=== PATIENT | female | born 1940 | race Caucasian/White ===

== ENCOUNTER 2021-07-26 10:10 | Inpatient (IN) | payer MEDICARE, OTHER, SELFPAY ==
[2021-07-26] VITALS (9 sets, daily range): BP systolic 128–149; BP diastolic 83–105; PULSE 92–115; RESP 18–25; TEMP 36.6–36.9; O2SAT 92–98; BMI 36.9; BMI 35.9
--- NOTE | 2021-07-26 10:38 | ECG_ITS ---
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 Measurements Intervals [place] Rate: 106 P: [place]: QRS: 163 QRSD: 136 T: 58 QT: 373 QTc: 496 Interpretive Statements ATRIAL FIBRILLATION WITH RAPID VENTRICULAR RESPONSE INTRAVENTRICULAR CONDUCTION DELAY [130+ ms QRS DURATION] ANTEROLATERAL MYOCARDIAL INFARCTION , OF INDETERMINATE AGE [40+ ms Q WAVE IN I/aVL/V3-V6] No previous ECG available for comparison Electronically Signed On 07-26-2021 21:03:26 CDT by Manda Harrington M.D. [id number]
--- NOTE | 2021-07-26 11:16 | ECG_ITS ---
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 Measurements Intervals [place] Rate: 88 P: [place]: QRS: 168 QRSD: 131 T: 55 QT: 397 QTc: 481 Interpretive Statements ATRIAL FIBRILLATION RIGHT AXIS DEVIATION [QRS AXIS > 100] INTRAVENTRICULAR CONDUCTION DELAY [130+ ms QRS DURATION] POSSIBLE ANTERIOR MYOCARDIAL INFARCTION , OF INDETERMINATE AGE [30 ms Q WAVE IN V3/V4, OR R < 0.2 mV IN V4] Compared to ECG 07/26/2021 10:48:27 Right-axis deviation now present Myocardial infarct finding still present Electronically Signed On 07-26-2021 21:03:12 CDT by Manda Harrington M.D. [id number]
--- NOTE | 2021-07-26 11:16 | W.ED.CHESTPA ---
HPI - Chest Pain General: Chief Complaint: Chest Pain Stated Complaint: CHEST PAIN (TOOK 3 NITRO THIS AM) Time Seen by Provider: 07/26/21 10:41 History of Present Illness: HPI narrative: 81-year-old female with history of CAD hypertension hyperlipidemia presents with chest pain. States this started last night. States it is achy. States it is exertional and nonpleuritic. Denies lower extremity pain or swelling. Denies nausea vomiting or cough. Denies fevers or chills. States does not radiate into the back. Did not improve with nitroglycerin at home. Still has mild active pain. Review of Systems Narrative: - CONSTITUTIONAL: Denies weight loss, fever and chills. - HEENT: Denies changes in vision and hearing. - RESPIRATORY: As above - CV: As above - GI: Denies abdominal pain, nausea, vomiting and diarrhea. - : Denies dysuria and urinary frequency. - MSK: Denies myalgia and joint pain. - SKIN: Denies rash and pruritus. - NEUROLOGICAL: Denies headache, weakness, numbness and syncope. - PSYCHIATRIC: Denies suicidal ideation PFSH ED PFSH: Medical History (Updated 07/19/21 @ 21:21 by Charan Montalvo MD) Abnormal stress test Anxiety Chest pressure Essential hypertension Hyperlipidemia Obesity Family History Mother Cancer Father Cancer Brother Cancer Social History Smoking and tobacco status: never smoked Alcohol intake: current Alcohol intake frequency: holidays/special occasions only Household members: spouse Marital status: service: No Current occupational status: retired Physical Exam Narrative: EXAM NARRATIVE: - GENERAL: Alert and oriented x 3. No acute distress. Well-nourished. - EYES: EOMI. Anicteric. - HENT: Atraumatic, no C-spine tenderness. Moist mucous membranes. No scleral icterus. No cervical lymphadenopathy. - LUNGS: Clear to auscultation bilaterally. No accessory muscle use. Equal lung sounds bilaterally. No respiratory distress. - CARDIOVASCULAR: Regular rate and rhythm. No murmur. No JVD. - ABDOMEN: Soft, non-tender and non-distended. Negative CVA tenderness bilaterally, no rebound or guarding, negative Ya sign. No palpable masses. - EXTREMITIES: No edema. Non-tender. - SKIN: No rashes or lesions. Warm. - NEUROLOGIC: No meningismus or focal neurological deficits. CN II-XII grossly intact. - PSYCHIATRIC: Cooperative. Appropriate mood and affect. Course Vital Signs: Vital signs: Vital Signs Temperature 98.4 F 07/26/21 10:34 Pulse Rate 96 07/26/21 11:01 Respiratory Rate 18 07/26/21 11:01 Blood Pressure 149/105 07/26/21 11:01 Pulse Oximetry 94 07/26/21 11:01 MDM - Chest Pain MDM Narrative: Medical decision making narrative: 81-year-old with history of CAD presents due to chest pain. It is exertional. It was not relieved by sublingual nitro at home. Aspirin provided. EKG reveals partial left bundle branch block and repeat EKG does not reveal any acute ischemia. She does have A. fib at a controlled rate. Otherwise she is chemically stable afebrile and nontoxic-appearing. D-dimer is elevated but CT scan does not reveal signs of PE. Does have groundglass appearance opacities and Covid swab is pending. BNP is also elevated so Lasix was provided. High-sensitivity troponin is 16. Repeat is pending. Otherwise EKG does not reveal any sign of acute ischemia. Discussed with cardiology and due to concern for exertional pain in the setting of CAD will start nitro and heparin drip. Remainder of lab work and imaging reviewed. Discussed with hospitalist and they agreed patient would benefit from admission. Patient admitted in stable condition. Further evaluation management per hospitalist team. Lab Data: Labs: Lab Results 07/26/21 07/26/21 07/26/21 10:57 10:57 10:57 WBC 8.1 10^3/uL 10^3/ uL (4.0-10.0) RBC 4.36 10^6/uL 10^6 /uL (4.1-5.3) Hgb 12.2 g/dL g/dL (11.5-15.3) Hct 38.5 % % (37.0-47.0) MCV 88.3 fl fl (81-99) MCH 28.0 pg pg (28.0-34.0) MCHC 31.7 g/dL g/dL (30.0-36.0) RDW 14.9 % % (12.1-15.1) Plt Count 211 10^3/cmm 10^3 /cmm (130-400) MPV 11.1 fL H fL (7.4-10.4) Neut % (Auto) 64.7 % % Lymph % (Auto) 25.2 % % [place] % (Auto) 8.0 % % Eos % (Auto) 0.9 % % Baso % (Auto) 0.7 % % Neut # (Auto) 5.22 10^3/uL 10^3 /uL (1.8-7.7) Lymph # (Auto) 2.0 10^3/uL 10^3/ uL (0.8-4.8) [place] # (Auto) 0.7 10^3/uL 10^3/ uL (0.2-0.9) Eos # (Auto) 0.1 10^3/uL 10^3/ uL (0.0-0.8) Baso # (Auto) 0.1 10^3/uL 10^3/ uL (0.0-0.1) Nucleated RBC % (a uto) 0 % % Nucleated RBCs # 0.0 /100WBC /100W BC PT 12.90 SECONDS SEC ONDS (12.1-14.9) INR 0.95 (0.8-1.2) APTT 29.6 SECONDS SECO NDS (23.9-36.7) D-Dimer 1.35 ug/mIFEU H u g/mIFEU (0-0.59) Sodium Potassium Chloride Carbon Dioxide Anion Gap BUN Creatinine GFR Calculation Glucose Calculated Osmolal ity Calcium Total Bilirubin AST ALT Alkaline Phosphata se Troponin T Baselin e 16 ng/L H ng/L (0-10) NT-Pro-B Natriuret Pep Total Protein Albumin Globulin Lipase 07/26/21 10:57 WBC RBC Hgb Hct MCV MCH MCHC RDW Plt Count MPV Neut % (Auto) Lymph % (Auto) [place] % (Auto) Eos % (Auto) Baso % (Auto) Neut # (Auto) Lymph # (Auto) [place] # (Auto) Eos # (Auto) Baso # (Auto) Nucleated RBC % (a uto) Nucleated RBCs # PT INR APTT D-Dimer Sodium 142 mmol/L mmol/L (136-145) Potassium 5.1 mmol/L mmol/L (3.5-5.1) Chloride 107 mmol/L mmol/L (98-107) Carbon Dioxide 26 mmol/L mmol/L (22-29) Anion Gap 14.1 (5-19) BUN 13 mg/dL mg/dL (8-23) Creatinine 0.5 mg/dL mg/dL (0.5-0.9) GFR Calculation Not Reportable Glucose 101 mg/dL mg/dL (65-115) Calculated Osmolal ity 294 mOsm/kg mOsm/ kg (285-295) Calcium 8.8 mg/dL mg/dL (8.5-10.5) Total Bilirubin 0.6 mg/dL mg/dL (0.15-1.2) AST 53 U/L H U/L (0-32) ALT 66 U/L H U/L (0-33) Alkaline Phosphata se 115 IU/L H IU/L (35-105) Troponin T Baselin e NT-Pro-B Natriuret Pep 2127 pg/mL H pg/m L (0-450) Total Protein 6.5 g/dL L g/dL (6.6-8.7) Albumin 4.2 g/dL g/dL (3.5-5.2) Globulin 2.3 g/dL g/dL (1.3-4.6) Lipase 16 U/L U/L (13-60) EKG Data^: EKG 1: Other EKG comments: A. fib with a rate of 106, there is a left bundle branch block. No signs of acute ischemia or other acute abnormality. Second EKG: A. fib at a rate of 88, incomplete left bundle branch block, no sign of acute ischemia or other acute abnormality, no significant change from previous EKG. Discharge Plan Discharge Prescriptions: No Action fluticasone propionate [Flonase Allergy Relief] 50 mcg/actuation spray,suspension 1 spray INTRANASAL DAILY PRN (Reason: Nasal Congestion) RF: 0 atorvastatin 40 mg tablet 80 mg PO DAILY RF: 0 nitroglycerin 0.4 mg tablet, sublingual 0.4 mg SUBLINGUAL Q5M PRN (Reason: chest pain) Qty: 30 RF: 3 Vitamin D3 25 mcg (1,000 unit) Capsule 25 mcg PO DAILY RF: 0 Coding Level of Care Code ED Track Hoe Operator for Chg Fwd
--- NOTE | 2021-07-26 11:17 | XRR_ITS ---
PROCEDURE INFORMATION: Exam: XR Chest Exam date and time: 07/26/2021 11:17 AM Age: 81 years old Clinical indication: Pain; Chest pressure; Additional info: Chest pain TECHNIQUE: Imaging protocol: XR of the chest. Views: 1 view. COMPARISON: No relevant prior studies available. FINDINGS: Lungs: Nonspecific bibasilar consolidation is present, consistent with atelectasis, edema, or pneumonia. Central vessels are origin and there is interstitial prominence and Benjie B lines compatible with mild CHF. Pleural spaces: Trace pleural effusions versus pleural thickening is noted.There is no evidence of pneumothorax. Heart/Mediastinum: The heart is enlarged. Bones/joints: Osteopenia and moderate degenerative changes in the spine and shoulders are noted. XR/XR chest 1V portable [id number] IMPRESSION: 1. Nonspecific bibasilar consolidation is present, consistent with atelectasis, edema, or pneumonia. 2. Central vessels are origin and there is interstitial prominence and Benjie B lines compatible with mild CHF. Radiation Dose CTDIVOL = (mGy): DLP = (mGy-cm)
[2021-07-26] MEDS: aspirin 81 mg Chew Tablet 324 MG PO (11:23)
[2021-07-26 11:28] LABS: Basophils # 0.1 10^3/uL (0.0-0.1); Basophils % 0.7 %; Eosinophils # 0.1 10^3/uL (0.0-0.8); Eosinophils % 0.9 %; Hematocrit 38.5 % (37.0-47.0); Hemoglobin 12.2 g/dL (11.5-15.3); Lymphocytes % 25.2 %; Mean Corpuscular HGB Conc 31.7 g/dL (30.0-36.0); Mean Corpuscular Volume 88.3 fl (81-99); Mean Platelet Volume 11.1 fL (7.4-10.4); Monocytes # 0.7 10^3/uL (0.2-0.9); Neutrophils # 5.22 10^3/uL (1.8-7.7); Neutrophils % 64.7 %; Nucleated Red Blood Cells % 0 %; Platelet Count 211 10^3/cmm (130-400); Red Blood Count 4.36 10^6/uL (4.1-5.3); Red Cell Distribution Width 14.9 % (12.1-15.1); White Blood Count 8.1 10^3/uL (4.0-10.0)
[2021-07-26 11:35] LABS: INR 0.95 (0.8-1.2)
[2021-07-26 11:36] LABS: Partial Thromboplastin Time 29.6 SECONDS (23.9-36.7)
[2021-07-26 11:38] LABS: D Dimer 1.35 ug/mIFEU (0-0.59)
[2021-07-26 11:42] LABS: Troponin(5th) Baseline 16 ng/L (0-10)
--- NOTE | 2021-07-26 11:48 | CTR_ITS ---
PROCEDURE INFORMATION: Exam: CTA Chest With Contrast Exam date and time: 07/26/2021 11:48 AM Age: 81 years old Clinical indication: Shortness of breath; Additional info: Pe TECHNIQUE: Imaging protocol: Computed tomographic angiography of the chest with contrast. 3D rendering (Not supervised by radiologist): MIP and/or 3D reconstructed images were created by the technologist. Radiation optimization: All CT scans at this facility use at least one of these dose optimization techniques: automated exposure control; mA and/or kV adjustment per patient size (includes targeted exams where dose is matched to clinical indication); or iterative reconstruction. Contrast material: OMNI 350; Contrast volume: 70 ml; Contrast route: INTRAVENOUS (IV); COMPARISON: CR (CHEST, ) 07/26/2021 11:23 AM RADIATION DOSE METRICS: Total DLP (mGy-cm): 560.21 FINDINGS: Pulmonary arteries: There is no pulmonary embolus. Aorta: The ascending thoracic aorta measures 4 cm in size. No evidence of mural hematoma or dissection. Lungs: There is diffuse interstitial and ground-glass opacity in the lungs especially both lower lobes compatible with pneumonitis or edema. There is subpleural atelectasis of the dependent portions of the lungs. Linear atelectasis versus scarring is also noted in the left lung. Pleural spaces: There are small bilateral pleural effusions right greater than left. Heart: The heart is enlarged. Lymph nodes: There is mediastinal adenopathy with 1 the largest lymph nodes being the 1.7 cm short axis subcarinal lymph node. There is a 1.4 cm short axis right hilar lymph node. There is a 1.2 cm short axis left hilar lymph node. There is no axillary adenopathy. There is right retrocrural adenopathy with a lymph node measuring 1.2 cm in short axis. Diaphragm: A small hiatal hernia is present. Gallbladder and bile ducts: There has been a cholecystectomy. Adrenal glands: There is multilobulated benign adenomatous enlargement of the adrenal glands. Bones/joints: There is osteopenia with moderate degenerative changes in the spine. Chronic appearing anterior wedging fracture deformities of T12 and L1 are noted. No acute bony abnormality. Soft tissues: Unremarkable. CT/CT angio chest PE protcl [id number] IMPRESSION: 1. There is no pulmonary embolus. 2. The ascending thoracic aorta measures 4 cm in size. No evidence of mural hematoma or dissection. 3. There is diffuse interstitial and ground-glass opacity in the lungs especially both lower lobes compatible with pneumonitis or edema. There is also dependent atelectasis. Radiation Dose CTDIVOL = (mGy): DLP = 560.21 (mGy-cm)
[2021-07-26 11:49] LABS: Alanine Aminotransferase 66 U/L (0-33); Albumin Level 4.2 g/dL (3.5-5.2); Alkaline Phosphatase 115 IU/L (35-105); Anion Gap 14.1 (5-19); Aspartate Amino Transferase 53 U/L (0-32); Blood Urea Nitrogen 13 mg/dL (8-23); Calcium 8.8 mg/dL (8.5-10.5); Carbon Dioxide 26 mmol/L (22-29); Chloride 107 mmol/L (98-107); Globulin 2.3 g/dL (1.3-4.6); Glucose 101 mg/dL (65-115); Lipase 16 U/L (13-60); NT Pro B Type Natriuretic Pept 2127 pg/mL (0-450); Osmolality Calculated 294 mOsm/kg (285-295); Potassium 5.1 mmol/L (3.5-5.1); Sodium 142 mmol/L (136-145); Total Bilirubin 0.6 mg/dL (0.15-1.2); Total Protein 6.5 g/dL (6.6-8.7)
[2021-07-26] MEDS: nitroglycerin drip 50 MG/250 ML PREMIX IV (11:58)
[2021-07-26] MEDS: iohexol 350 mg/mL 100 mL Btl IV (12:45)
--- NOTE | 2021-07-26 13:16 | ECG_ITS ---
[facility] Test Date: 2021-07-26 Pat Name: Radha Samuel Department: Room: 107 Gender: Female Web Pressman: : 1940 Requested By: Jay Grace Order Number: [id number] Vidya MD: Manda Harrington M.D. Measurements Intervals [place] Rate: 106 P: [place]: QRS: 63 QRSD: 134 T: -64 QT: 409 QTc: 544 Interpretive Statements ATRIAL FIBRILLATION WITH RAPID VENTRICULAR RESPONSE INTRAVENTRICULAR CONDUCTION DELAY [130+ ms QRS DURATION] POSSIBLE RIGHT VENTRICULAR HYPERTROPHY [SOME/ALL OF: PROMINENT R IN V1, LATE TRANSITION, RAD, ULISES, SSS] Compared to ECG 07/26/2021 13:49:19 Right-axis deviation no longer present Myocardial infarct finding no longer present Electronically Signed On 07-26-2021 21:15:24 CDT by Manda Harrington M.D. [id number]
[2021-07-26] MEDS: heparin drip 25,000 UNIT/500 ML PREMIX 26 UNIT IV (13:21)
[2021-07-26] MEDS: heparin 5,000 unit/mL INJ 1 mL IV (13:21)
[2021-07-26] MEDS: FUROsemide 10 mg/mL SDV 4mL 40 MG IVP ×2 (13:57→20:36)
[2021-07-26 14:19] LABS: SARS Covid-2 Antigen Negative (Negative)
--- NOTE | 2021-07-26 14:30 | PC.NURSE ---
Admit Note Patient admitted to [facility] from ER via [facility]. Covering service notified. Patient presents with sob on GTTS. Orders reviewed & will continue to monitor. Patient and/or internet sales representative oriented to environment, equipment, and informed of the following as found in the admission booklet: patient rights & responsibilities, visitor policy, hand and respiratory hygiene practice. Other education includes:medications and response. Patient and/or internet sales representative verbalized understanding.
[2021-07-26 14:35] LABS: Troponin 5 2HR 14.61 ng/L (0-10)
[2021-07-26 14:39] LABS: Troponin 5 2HR Delta -1.39 ABS# (0-10)
--- NOTE | 2021-07-26 15:55 | P.CONIM_ITS ---
Providers/Reason For Consult Consulting Physician/Specialty*: Dr. Harrington, cardiology Reason for Consult*: Chest pain concern for unstable angina Attending Physician: Jamie Lopez MD Primary Care Provider: Estee Novak MD History of Present Illness History of Present Illness Radha Samuel is a 81 year old female with past medical history of hypertension, hyperlipidemia, obesity BMI ~ 37, systolic murmur, mild aortic stenosis and anxiety presented to the ER with complaints of chest discomfort and worsening shortness of breath. She complains of progessively worsening MCGHEE for last several months. She was able to walk 1/4th of a mile before and now walking across the house makes her SOB. She had chest pain (8/10) around 2 am and needed to use NTG. Chest pain described as heaviness and associated with palpitation and heart racing. No known h/o CAD or stent. Abnormal stress test at [facility] a year or two ago and [facility] was planned in 01/[address] Garzon. She is currently being followed by Dr. Montalvo and saw him about 10 days ago. Echocardiogram was ordered but patient continues to have worsening of her shortness of breath and given chest discomfort earlier this morning decided to come to the ER. On waking up around 2 in the morning she also felt her heart racing with a maximum heart rate being 110. Patient states that she has been having these episodes for the past year on and off. She has never been diagnosed with atrial fibrillation. No URI or UTI-like symptoms. No sick contacts. Rapid Covid antigen testing was negative in ER. EKG today showed atrial fibrillation with right axis deviation with heart rate at 106 bpm. Intraventricular conduction delay. Possible anterior MT of indeterminate age. A. fib and IVCD (LBBB like morphology) new when compared to old EKG earlier this year. Anterolateral MT of indeterminate age. Subsequent EKG showed atrial fibrillation with normal axis and right mruonl-aflrwg-ihyk morphology with deep T wave inversion noted in anterolateral leads. She is currently on NTG drip. She complains of heaviness in her chest as well as upper abdominal fullness. She was started on IV Lasix as well as on heparin drip. At the time of evaluation patient complains of some heaviness in her chest rated around 3/10 in intensity. Review of Systems Const: Denies: fever(s), chills, body aches or fatigue Eyes: Denies: change in vision ENMT: Denies: throat pain, odynophagia or nasal congestion Card: Reports: swelling of feet/ankles and dyspnea on exertion; Denies: chest pain, palpitations, irregular heart rhythm, syncope, pre-syncope or orthopnea Resp: Reports: dyspnea; Denies: productive cough or non-productive cough GI: Denies: abdominal pain, nausea, vomiting, diarrhea, hematochezia or melena : Denies: difficulty voiding or dysuria Musc: Reports: extremity swelling; Denies: neck pain, back pain, joint pain or muscle cramps Skin/Breast: Denies: rash Neuro: Denies: headache(s), numbness in extremities, weakness in extremities, frequent falls or dizziness Psych: Denies: anxiety or depression Endo: Denies: polydipsia, cold intolerance or heat intolerance Deniz/Lymph: Denies: easy bruising or easy bleeding All/Imm: Reports: seasonal rhinorrhea; Denies: urticaria or throat swelling Meds/Allergies Home Medications and Allergies Home Medications Medication Instructions Recorded Confirmed Last Taken Type nitroglycerin 0.4 mg sublingual 0.4 mg SUBLINGUAL Q5M PRN #30 tab 05/28/20 07/26/21 07/26/21 02:00 Rx tablet fluticasone propionate 50 1 spray INTRANASAL DAILY PRN 01/14/21 07/26/21 Unknown History mcg/actuation nasal spray,suspension atorvastatin 40 mg tablet 80 mg PO DAILY tab 07/15/21 07/26/21 07/24/21 History cholecalciferol (vitamin D3) 25 mcg PO DAILY 07/26/21 07/26/21 07/26/21 History [Vitamin D3] Allergies Allergy/AdvReac Type Severity Reaction Status Date / Time morphine Allergy Severe hallucinati Verified 07/15/21 10:52 ons Current Medications Current Medications Generic Name Dose Route Start Last Admin Trade Name Freq PRN Reason Stop Dose Admin Heparin Sodium (Porcine) 0 unit 07/26/21 12:11 07/26/21 13:21 Heparin 5,000 Unit/Ml Inj 1 Ml IV 4,600 unit PRN PRN Administration Heparin weight-base protocol Protocol Nitroglycerin/Dextrose 50 mg in 250 mls @ 0 mls/hr 07/26/21 11:30 07/26/21 11:58 Nitroglycerin Drip IV 10 mcg/min .Q0M EVELYNE 3 mls/hr Administration Protocol Per Protocol Heparin Sodium/Sodium Chloride 25,000 unit in 500 mls @ 0 mls/hr 07/26/21 12:15 07/26/21 13:21 Heparin Drip IV 14.19 unit/kg/hr .Q0M EVELYNE 26 mls/hr Administration Protocol Per Protocol PFSH Acute PFSH: Medical History Abnormal stress test Anxiety Chest pressure Essential hypertension Hyperlipidemia Obesity Osteopenia Surgical History H/O right wrist surgery S/P hysterectomy Family History Mother Cancer Father Cancer Brother Cancer Social History Smoking and tobacco status: never smoked Alcohol intake: current Alcohol intake frequency: holidays/special occasions only Household members: spouse Marital status: service: No Current occupational status: retired Vitals/I&O/Wt Last Vital Signs Temp 98.4 F 07/26/21 10:34 Pulse 105 H 07/26/21 15:02 Resp 20 H 07/26/21 15:02 BP 146/101 07/26/21 15:02 Pulse Ox 94 07/26/21 15:02 Weight last 48 hrs Weight 202 lb Physical Exam Narrative: EXAM NARRATIVE: GENERAL: obese woman in no acute distress HEENT: Pupils equal round reactive to light. No pallor or icterus. NECK: Elevated JVD. No carotid bruit. CARDIOVASCULAR SYSTEM: S1-S2 irregular. Grade 3/6 systolic murmur with radiation to carotids RESPIRATORY SYSTEM: Chest clear to auscultation. No wheezes rhonchi or rubs heard. No use of accessory muscles. ABDOMEN: Soft, nontender and nondistended. Normal bowel sounds present. EXTREMITIES: No cyanosis or clubbing. 1+ bilateral edema. No signs of chronic venous insufficiency. DIRECTOR OF COUNTERINTELLIGENCE: Patient is alert oriented ?3. No focal neurological deficits. SKIN: Normal turgor and temperature. Data Other Data: Other data: Chest CTA 26 July 2021 IMPRESSION: 1. There is no pulmonary embolus. 2. The ascending thoracic aorta measures 4 cm in size. No evidence of mural hematoma or dissection. 3. There is diffuse interstitial and ground-glass opacity in the lungs especially both lower lobes compatible with pneumonitis or edema. There is also dependent atelectasis. Chest x-ray 26 July 2021 IMPRESSION: 1. Nonspecific bibasilar consolidation is present, consistent with atelectasis, edema, or pneumonia. 2. Central vessels are origin and there is interstitial prominence and Benjie B lines compatible with mild CHF. A&P Assessment and plan (1) Chest pressure: Baseline troponin of 16 that decreased to 15 and 6-hour troponin T of 15.7. -Previous stress test with some reversible ischemia in circumflex artery territory. (As documented in one of the notes I do not have actual report or images available for review.) -EKG with atrial fibrillation with alternating bundle branch block T wave inversion in anterolateral leads. Patient's prior EKG from January 2020 with normal sinus rhythm normal axis poor anterior R wave progression with T wave inversion V2 to V6. Patient was not on any AV tito blockers at home. -Plan for echocardiogram and decision for stress test/coronary angiogram based on echocardiogram and patient's clinical progression. Status: Acute (2) Heart failure: Heart failure with preserved ejection fraction -Decompensated likely in setting of newly diagnosed atrial fibrillation and alternating bundle branch block. -Agree with IV diuretics at present dose. -Intake/output charting, daily weight. Status: Acute Qualifiers: Heart failure chronicity: acute Heart failure type: diastolic Qualified Code(s): I50.31 - Acute diastolic (congestive) heart failure (3) A-fib: Rate fairly controlled. -Started on low-dose beta-amy. -Transition from heparin to Lovenox. Status: Acute Qualifiers: Atrial fibrillation type: persistent (not longstanding) Qualified Code(s): I48.19 - Other persistent atrial fibrillation (4) Aortic stenosis: Plan to repeat echocardiogram. Status: Acute Qualifiers: Cardiac valve disease etiology: nonrheumatic Qualified Code(s): I35.0 - Nonrheumatic aortic (valve) stenosis (5) Transaminitis: Status: Acute (6) Essential hypertension: Status: Acute (7) Hyperlipidemia: Status: Acute Qualifiers: Hyperlipidemia type: other hyperlipidemia Qualified Code(s): E78.49 - Other hyperlipidemia Additional A&P Information Alternating bundle branch block Obesity History of abnormal stress test Thank you for allowing me to participate in patient's care. Please feel free to call with questions or concerns. Consult Attestations Time Spent in Patient Care: Greater than 35 minutes (>than 50% of time spent in counselling and/or direct pt care on unit) . Coding Level of Care Code Acute Utility Repairer for Luisa Giffordd Diagnoses Chest pressure R07.89 Heart failure I50.31 Heart failure chronicity: acute Heart failure type: diastolic A-fib I48.19 Atrial fibrillation type: persistent (not longstanding) Aortic stenosis I35.0 Cardiac valve disease etiology: nonrheumatic Transaminitis R74.01 Essential hypertension I10 Hyperlipidemia E78.49 Hyperlipidemia type: other hyperlipidemia
--- NOTE | 2021-07-26 16:05 | PM.HP ---
Providers/Chief Complaint Admitting Physician: Jamie Lopez MD Primary Care Provider: Estee Novak MD Chief Complaint: CHEST PAIN (TOOK 3 NITRO THIS AM) History of Present Illness Radha Samuel is a 81 year old female with past medical history of aortic stenosis, dyslipidemia, abnormal stress test, came in with chief complaint of worsening shortness of breath going on for the last 1 week, as well as worsening substernal pressure-like chest pain. With regards to shortness of breath, it has drastically worsened in the last 1 week, up to a point where she gets short of breath even with minimal exertion, denies any PND, orthopnea. According to the patient she does have baseline shortness of breath Which has been there for about a year, and has been slowly progressively worsening. But over the last 1 week it has worsened significantly. Chest pain is mostly substernal pressure-like, with no radiation, today the chest pain was very severe and did not responded to sublingual nitro x3 doses. She is also complaining of episodic palpitation.She denies any cough, fever, runny nose, headache, nausea, diaphoresis. Upon arrival in the ER she was worked up for above-mentioned complaint: Pertinent imaging studies: CT angio chest PE protcl : No PE: ascending thoracic aorta measures 4 cm in size.diffuse interstitial and ground-glass opacity in the lungs especially both lower lobes compatible with pneumonitis or edema. EKG: A. fib,RAD, IVCD. Pertinent labs: WBC 8.1, H&H: 12.2/ 38.5 , PLT: 211, serum sodium:142, serum potassium:5.1, BUN and serum creatinine: 13/0.5, AST:53, ALT:66, ALP:115 , troponin trend without significant delta: proBNP:2127 Rapid Covid : Antigen negative She was started on heparin drip as well as nitro drip, for possible unstable angina in ER Review of Systems Const: Denies: fever(s), chills, body aches, change in appetite or diaphoresis Card: Denies: orthopnea or leg pain with exertion Resp: Denies: wheezing or pain on inspiration GI: Denies: abdominal pain, nausea, vomiting, diarrhea or constipation : Denies: flank pain Musc: Denies: back pain or extremity pain Neuro: Denies: headache(s), difficulty walking or confusion Medications/Allergies Home Medications Medication Instructions Recorded Confirmed Last Taken Type nitroglycerin 0.4 mg sublingual 0.4 mg SUBLINGUAL Q5M PRN #30 tab 05/28/20 07/26/21 07/26/21 02:00 Rx tablet fluticasone propionate 50 1 spray INTRANASAL DAILY PRN 01/14/21 07/26/21 Unknown History mcg/actuation nasal spray,suspension atorvastatin 40 mg tablet 80 mg PO DAILY tab 07/15/21 07/26/21 07/24/21 History cholecalciferol (vitamin D3) 25 mcg PO DAILY 07/26/21 07/26/21 07/26/21 History [Vitamin D3] Allergies Allergy/AdvReac Type Severity Reaction Status Date / Time morphine Allergy Severe hallucinati Verified 07/15/21 10:52 ons PFSH Acute PFSH: Medical History (Updated 07/26/21 @ 17:31 by Jamie Lopez MD) Abnormal stress test Anxiety Chest pressure Essential hypertension Hyperlipidemia Obesity Osteopenia Surgical History (Updated 07/26/21 @ 15:59 by Manda Harrington MD) H/O right wrist surgery S/P hysterectomy Family History Mother Cancer Father Cancer Brother Cancer Social History Smoking and tobacco status: never smoked Alcohol intake: current Alcohol intake frequency: holidays/special occasions only Household members: spouse Marital status: service: No Current occupational status: retired Vitals/I&O/Wt Last Vital Signs Temp 98.4 F 07/26/21 10:34 Pulse 105 H 07/26/21 15:02 Resp 20 H 07/26/21 15:02 BP 146/101 07/26/21 15:02 Pulse Ox 94 07/26/21 15:02 Weight last 48 hrs Weight 91.626 kg Physical Exam Const: COMMON NORMALS: patient oriented x3 HENMT: COMMON NORMALS: normocephalic and atraumatic HEAD & SCALP: normocephalic and atraumatic Resp: EFFORT & INSPECTION: Yes symmetric chest movement OTHER: Minimal bilateral basal crackles Cardio: COMMON NORMALS: No rub (Cardio) OTHER: Irregularly irregular rhythm, S1-S2 are variable intensity, ESM in aortic area GI: COMMON NORMALS: Normal to inspection, nondistended, normoactive bowel sounds present, Soft to palpation, non-tender, No hepatosplenomegaly present and no masses AUSCULTATION: Yes normoactive bowel sounds PALPATION: Yes Soft to palpation and Yes No hepatosplenomegaly present RECTAL EXAM: deferred Extremity: COMMON NORMALS: no clubbing, cyanosis or edema and no pedal edema Neuro: COMMON NORMALS: patient oriented x3 Data : 07/26/21 10:57 07/26/21 10:57 A&P Assessment and plan (1) Chest pain: Typical cardiac chest pain: In absence of classical CAD risk factor. 2D echo: Initially on nitro drip has been stopped Continue aspirin, statin, beta-amy, nitropaste. Sublingual nitro as needed Possible cardiac cath, once more clinically stable Status: Acute (2) A-fib: New onset atrial fibrillation TSH Metoprolol tartrate 12.5 mg p.o. twice daily Lovenox 90 subcu twice daily Status: Acute (3) Heart failure: Decompensated heart failure: Lasix 40 mg IV twice daily Intake output chart Daily weight K>4, MG>2 Status: Acute (4) Aortic stenosis: Status: Acute (5) Hypertension: No known history of hypertension in the past not any antihypertensive medication at home. Amlodipine 5 mg p.o. Status: Acute (6) Transaminitis: Likely secondary to congestive hepatopathy: Monitor CMP Status: Acute Attestations Medical Necessity Statement*: Patient needs to be in hospital for management of chest pain.Anticipated length of stay greater than 2 midnights. Coding Level of Care Code Acute Extrusion Machine Operator for Luisa Medley Diagnoses Chest pain R07.9 A-fib I48.91 Heart failure I50.9 Aortic stenosis I35.0 Hypertension I10 Transaminitis R74.01
[2021-07-26] MEDS: metoprolol tartrate 25 mg Tablet 12.5 MG PO (17:15)
--- NOTE | 2021-07-26 17:16 | ECG_ITS ---
[facility] Test Date: 2021-07-26 Pat Name: Radha Samuel Department: Room: Gender: Female Audio Visual Production Specialist: : 1940 Requested By: Jay Grace Order Number: [id number] Vidya MD: Manda Harrington M.D. Measurements Intervals [place] Rate: 80 P: MI: QRS: 169 QRSD: 138 T: 61 QT: 433 QTc: 502 Interpretive Statements ATRIAL FIBRILLATION RIGHT AXIS DEVIATION [QRS AXIS > 100] INTRAVENTRICULAR CONDUCTION DELAY [130+ ms QRS DURATION] POSSIBLE ANTERIOR MYOCARDIAL INFARCTION , OF INDETERMINATE AGE [30 ms Q WAVE IN V3/V4, OR R < 0.2 mV IN V4] Compared to ECG 07/26/2021 11:30:32 No significant changes Electronically Signed On 07-26-2021 21:15:57 CDT by Manda Harrington M.D. [email or web address] [email or web address].[email or web address]/[id number]
--- NOTE | 2021-07-26 18:00 | PC.NURSE ---
Dr lee at bedside for assessment and discussion of plan of care instructions received at bed side to give po metoprolol 12.5mg NOW
[2021-07-26] MEDS: nitroglycerin 1 gm/inch oint Pkt 0.5 INCH TOPICAL (18:03)
[2021-07-26 19:13] LABS: Troponin 5 6HR 15.73 ng/L (0-10)
[2021-07-26 19:14] LABS: Troponin 5 6HR Delta -0.27 ng/L (0-12)
[2021-07-26] MEDS: enoxaparin 100 mg/mL Syringe 90 MG SUBCUT (20:38)
[2021-07-26 22:08] LABS: Partial Thromboplastin Time 62.5 SECONDS (23.9-36.7)
[2021-07-27] VITALS (9 sets, daily range): BP systolic 112–134; BP diastolic 69–102; PULSE 78–108; RESP 16–23; TEMP 36.3–37; O2SAT 91–94
[2021-07-27] MEDS: nitroglycerin 1 gm/inch oint Pkt 0.5 INCH TOPICAL ×2 (01:41→06:02)
[2021-07-27] MEDS: acetaminophen 325 mg Tablet 650 MG PO (03:34)
[2021-07-27 03:50] LABS: Basophils # 0.1 10^3/uL (0.0-0.1); Basophils % 0.8 %; Eosinophils # 0.1 10^3/uL (0.0-0.8); Eosinophils % 1.3 %; Hematocrit 37.8 % (37.0-47.0); Hemoglobin 12.4 g/dL (11.5-15.3); Lymphocytes # 3.6 10^3/uL (0.8-4.8); Lymphocytes % 38.3 %; Mean Corpuscular HGB Conc 32.8 g/dL (30.0-36.0); Mean Corpuscular Hemoglobin 28.2 pg (28.0-34.0); Mean Corpuscular Volume 85.9 fl (81-99); Mean Platelet Volume 11.5 fL (7.4-10.4); Monocytes # 0.8 10^3/uL (0.2-0.9); Monocytes % 8.4 %; Neutrophils # 4.72 10^3/uL (1.8-7.7); Neutrophils % 50.8 %; Nucleated Red Blood Cells % 0 %; Platelet Count 234 10^3/cmm (130-400); Red Cell Distribution Width 14.7 % (12.1-15.1); White Blood Count 9.3 10^3/uL (4.0-10.0)
[2021-07-27 04:30] LABS: Estmated Average Glucose 131; Hemoglobin A1C 6.2 % (4.0-6.0)
[2021-07-27 04:33] LABS: Alanine Aminotransferase 55 U/L (0-33); Albumin Level 4.2 g/dL (3.5-5.2); Alkaline Phosphatase 115 IU/L (35-105); Anion Gap 15.2 (5-19); Aspartate Amino Transferase 32 U/L (0-32); Blood Urea Nitrogen 15 mg/dL (8-23); Calcium 8.8 mg/dL (8.5-10.5); Carbon Dioxide 26 mmol/L (22-29); Chloride 102 mmol/L (98-107); Globulin 2.5 g/dL (1.3-4.6); Glucose 102 mg/dL (65-115); Magnesium 1.8 mg/dL (1.7-2.3); Osmolality Calculated 289 mOsm/kg (285-295); Potassium 4.2 mmol/L (3.5-5.1); Sodium 139 mmol/L (136-145); Thyroid Stimulating Hormone 4.02 uIU/mL (0.27-4.20); Total Bilirubin 0.6 mg/dL (0.15-1.2); Total Protein 6.7 g/dL (6.6-8.7)
--- NOTE | 2021-07-27 06:28 | PC.NURSE ---
Frequent safety and comfort rounds continue. Orders and/or nursing care completed as indicated. Patient monitored for response to intervention and treatment(s). Education provided include nitroglycerin and possible headache. Patient and/or sales representative womens health verbalizes understanding. Will continue to monitor.
[2021-07-27] MEDS: amlodipine 5 mg Tablet PO (08:58)
[2021-07-27] MEDS: FUROsemide 10 mg/mL SDV 4mL 40 MG IVP ×2 (08:58→20:51)
[2021-07-27] MEDS: aspirin 81 mg EC Tablet PO (08:58)
[2021-07-27] MEDS: cholecalciferol (vitamin D3) 1,000 unit Tablet 1000 UNIT PO (08:58)
[2021-07-27] MEDS: metoprolol tartrate 25 mg Tablet 12.5 MG PO (08:59)
[2021-07-27] MEDS: enoxaparin 100 mg/mL Syringe 90 MG SUBCUT ×2 (08:59→20:52)
[2021-07-27] MEDS: atorvastatin 40 mg Tablet 80 MG PO (08:59)
--- NOTE | 2021-07-27 09:37 | ECG_ITS ---
[facility] Test Date: 2021-07-27 Pat Name: Radha Samuel Department: Room: 107 Gender: Female Finished Carpet Inspector: : 1940 Requested By: Catalino Sellers Order Number: [id number] Vidya MD: Manda Harrington M.D. Measurements Intervals [place] Rate: 91 P: MD: QRS: 73 QRSD: 136 T: 174 QT: 432 QTc: 532 Interpretive Statements ATRIAL FIBRILLATION INTRAVENTRICULAR CONDUCTION DELAY [130+ ms QRS DURATION] Compared to ECG 07/26/2021 17:45:55 Atrial abnormality no longer present Electronically Signed On 07-27-2021 19:25:26 CDT by Manda Harrington M.D. [id number]
--- NOTE | 2021-07-27 09:58 | PC.CHAP ---
Pastoral Care Encounter/Spiritual Assessment Type of Contact [] Declined director social visit [] Patient/Family/Request visit [] Outpatient visit [] Follow-up visit [] Physician referral [] Code/Alert [x [] Out of room [] Palliative care [] [] Receiving care in room [] Pre-surgical visit [] Trauma [] Long length of stay [] ICU visit [] Other: Relational/Emotional Strength [] Patient feels connected with others/family/visitors/staff [] Distress [] Loneliness/isolation [] Abandonment Spirituality of Patient [] Person of Bess [] Attends Hinduism of their Bess [] Believes in Prayer [] Reads Bible or Congregation materials [] There are Spiritual issues to be addressed [place]uner Interventions [] Prayer [] Active listening [] Non-anxious presence [] Spiritual/emotional support [] Crisis/trauma care [] Spiritual counseling [] Bereavement support [] Provided bereavement packet [] Provided Bible/devotional materials [] Provided toy/stuffed animal, coloring book to patient or family member [] Provided Communion [] Anointing/[place] [] Salvation [x] Completed spiritual assessment [] Other: Impact on Illness or Injury [] Angry [] Fearful [] Anxious [] Often cries [] Exhaustion [] Unable to work [] Unable to attend advent [] Unable to walk/stand [] Unable to read [] Unable to drive [] Unable to eat/drink [] Unable to sleep [] Unable to be with family [] Patient intubated [] Other: Summa patient ok ddint need gpayer Time spent with patient `0 min
--- NOTE | 2021-07-27 16:04 | USCV_ITS ---
Radha Samuel Age: 81 Gender: F : 1940 Exam Date: 07/27/2021 07:32 Ordering Phys: Jamie Lopez MD Technologist: Exam Location: [facility] – [place] Indication: CHEST PAIN BP: 125 / 93 HR: 86 Rhythm: Sinus Technical Quality: Adequate MEASUREMENTS (Male / Female) Normal Values 2D ECHO LV Diastolic Diameter PLAX 4.4 cm 4.2 - 5.9 / 3.9 - 5.3 cm LV Systolic Diameter PLAX 3.0 cm IVS Diastolic Thickness 1.1 cm 0.6 - 1.0 / 0.6 - 0.9 cm IVS Systolic Thickness 1.5 cm LVPW Diastolic Thickness 1.0 cm 0.6 - 1.0 / 0.6 - 0.9 cm LVPW Systolic Thickness 1.2 cm LVOT Diameter 2.0 cm LV Ejection Fraction 2D Teich 59.1 % LA Diameter 3.9 cm LA Width 4.3 cm LA Height 5.3 cm RA Width 4.6 cm RA Height 6.6 cm DOPPLER AV Peak Velocity 278.0 cm/s LVOT Peak Velocity 90.7 cm/s AV Area Cont Eq vti 1.3 cm squared AV Area Cont Eq pk 1.1 cm squared MV Area PHT 3.4 cm squared Mitral E to A Ratio 4.7 MV E' Velocity 93.4 cm/s Mitral E to MV E' Ratio 15.1 Mitral E to LV E' Lateral Ratio 17.5 Mitral E to LV E' Septal Ratio 13.4 TR Peak Velocity 210.8 cm/s TR Peak Gradient 17.8 mmHg TV Peak E Velocity 82.0 cm/s Right Atrial Pressure 3.0 mmHg Pulmonary Artery Systolic Pressu 20.8 mmHg FINDINGS Left Ventricle Normal left ventricular cavity size. Mild concentric left ventricular hypertrophy. Normal left ventricular systolic function. Left ventricular ejection fraction is estimated at 60 %. Abnormal septal motion consistent with conduction abnormality. Abnormal diastolic function. Right Ventricle Normal right ventricular size and systolic function. Right ventricular systolic pressure 33 mmHg. Right Atrium Moderately increased right atrial size. Left Atrium Moderately increased left atrial size. Mitral Valve Moderate to severe mitral annular calcification. Thickened mitral valve. No mitral valve stenosis. Trace mitral valve regurgitation. Aortic Valve Moderately thickened and calcified trileaflet aortic valve (left coronary cusp appears to have restricted motion). Mild aortic valve stenosis, peak velocity 2.7 m/s, peak gradient 40 mmHg, mean gradient 11.8 mmHg, RORO 1.3 cm squared (LVOT =20 mm). No aortic valve regurgitation. Tricuspid Valve Structurally normal tricuspid valve. No tricuspid valve stenosis. Trace to mild tricuspid valve regurgitation. Pulmonic Valve Pulmonic valve not well visualized. Pericardium No pericardial effusion. Aorta Normal-sized aortic root. CONCLUSIONS 1. This is a technically difficult study. 2. Normal left ventricular cavity size. Mild concentric left ventricular hypertrophy. Normal left ventricular systolic function. Left ventricular ejection fraction is estimated at 60 %. Abnormal septal motion consistent with conduction abnormality. Abnormal diastolic function. 3. Normal right ventricular size and systolic function. 4. Moderately thickened and calcified trileaflet aortic valve (left coronary cusp appears to have restricted motion). Mild aortic valve stenosis, peak velocity 2.7 m/s, peak gradient 40 mmHg, mean gradient 11.8 mmHg, RORO 1.3 cm squared (LVOT =20 mm). 5. No prior similar studies to compare. Manda Harrington MD (Electronically Signed) Final Date: 27 July 2021 14:31 S
--- NOTE | 2021-07-27 16:36 | P.PN_ITS ---
Subjective Subjective: Interval history: Hospital course, labs appreciated. Has remained hemodynamically stable afebrile. Examination today patient sitting comfortably in bed. States she is feeling a lot better. She does not have any further chest heaviness. Complaining of occasional headache. Denies any nausea vomiting, headache. Documented urine output last 24 hours over 3 L. Vitals/I&O/Wt Last Vital Signs Temp 98.2 F 07/27/21 15:15 Pulse 78 07/27/21 15:15 Resp 19 H 07/27/21 15:15 BP 112/74 07/27/21 15:15 Pulse Ox 91 07/27/21 15:15 07/27/21 07/27/21 07/27/21 06:59 14:59 22:59 Intake Total 150 / 554.617 600 / 600 Output Total 2400 / 3300 Balance -2250 / -2745.383 600 / 600 Weight last 48 hrs Weight 86.183 kg Weight 88.995 kg Weight 91.626 kg Physical Exam Urinary Catheter Management^: Ellington: Cath Placed During This Visit: yes Reason for Continuing Indwelling Catheter: Accurate Measurement of Urinary Output in Critically Ill Patients Urinary Catheter Date of Insertion: 07/26/21 Urinary Catheter Time of Insertion: 16:00 Data : 07/27/21 03:20 07/27/21 03:20 A&P Assessment and plan (1) Chest pressure: Status: Acute (2) A-fib: Status: Acute Qualifiers: Atrial fibrillation type: persistent (not longstanding) Qualified Code(s): I48.19 - Other persistent atrial fibrillation (3) Diastolic heart failure: (4) Aortic stenosis: Status: Acute Qualifiers: Cardiac valve disease etiology: nonrheumatic Qualified Code(s): I35.0 - Nonrheumatic aortic (valve) stenosis (5) Hypertension: Status: Acute Additional A&P Information Chest pressure: Relieved by nitro drip in the ER. Troponin trended down with baseline 16. Nitro drip subsequently has been stopped and changed to Nitropaste. Continue with aspirin, statin, beta-amy. Check lipid panel. A1c 6.2. Continue with Nitropaste. Oxygen supplementation keeping saturation over 90%. Cannot rule out CAD, unstable angina. Possible history of positive/abnormal stress test though not available in the system. Cardiology consulted. Recommendations appreciated. Possible cardiac cath. Atrial fibrillation: Rate controlled currently. Continue with metoprolol at 25 mg twice daily. Patient is agreeable for anticoagulation. Discussed the merits versus merits. Jose Angel vas score: 5 because of hypertension, congestive heart failure, female, age more than 75. Full dose Lovenox 1 mg/kg body weight every 12 hourly. Diastolic heart failure: Echocardiogram results appreciated. Possible normal EF, technical difficult study. Mild to moderate aortic stenosis. IV Lasix 40 mg twice daily. Strict input output charting. Daily weight. Continue Ellington catheterization for now. Fluid restriction up to 1500 cc. Hypertension: Goal blood pressure less than 140/90 mmHg. Continue metoprolol. We will add SORIN inhibitor depending on blood pressure. Type 2 diabetes mellitus: New diagnosis. A1c 6.2. Insulin sliding scale at low-dose protocol. Most likely patient can be discharged on oral Metformin. Cardiac carb consistent diet. Full dose Lovenox will help with DVT prophylaxis. Famotidine for PUD prophylaxis Attestations Medical Necessity Statement*: Requires further hospitalization for management of atrial fibrillation, chest pressure, rule out CAD, diastolic heart failure. Time Spent in Patient Care: Greater than 35 minutes (>than 50% of time spent in counselling and/or direct pt care on unit) . Coding Level of Care Code Acute Foundry Laborer Coreroom for Chg Fwd Diagnoses Chest pressure R07.89 A-fib I48.19 Atrial fibrillation type: persistent (not longstanding) Diastolic heart failure I50.30 Aortic stenosis I35.0 Cardiac valve disease etiology: nonrheumatic Hypertension I10
--- NOTE | 2021-07-27 17:11 | P.PN_ITS ---
Subjective Subjective: Interval history: Patient feels better. Her chest tightness has improved as well as abdominal fullness has improved.. Urine output 3300 mL yesterday -2.7 L. Medications: Reviewed: Yes Medication Review Details: Current Medications Acetaminophen (Acetaminophen 325 Mg Tablet) 650 mg PO Q6H PRN PRN Reason: Mild/Mod Pain Or Temp >/= 101 Last Admin: 07/27/21 03:34 Dose: 650 mg Documented by: Aspirin (Aspirin 81 Mg Ec Tablet) 81 mg PO DAILY [facility] Last Admin: 07/27/21 08:58 Dose: 81 mg Documented by: Atorvastatin Calcium (Atorvastatin 40 Mg Tablet) 80 mg PO DAILY [facility] Last Admin: 07/27/21 08:59 Dose: 80 mg Documented by: Bisacodyl (Bisacodyl 5 Mg Tablet) 10 mg PO DAILY PRN; Protocol PRN Reason: Constipation (see protocol) Dextrose (Dextrose 50% Syringe 50 Ml) 25 ml IVP ONCE PRN; Protocol PRN Reason: hypoglycemia protocol Dextrose (Dextrose 50% Syringe 50 Ml) 50 ml IVP PRN PRN; Protocol PRN Reason: hypoglycemia protocol Enoxaparin Sodium (Enoxaparin 100 Mg/Ml Syringe) 90 mg 1 mg/kg (90 mg) SUBCUT Q12H EVELYNE Famotidine (Famotidine 20 Mg/2 Ml Inj) 20 mg IVP Q12H EVELYNE Furosemide (Furosemide 10 Mg/Ml Sdv 4ml) 40 mg IVP Q12H EVELYNE Last Admin: 07/27/21 08:58 Dose: 40 mg Documented by: Glucagon (Glucagon 1 Mg/Ml Inj 1 Ml) 1 mg IM ONCE PRN; Protocol PRN Reason: Adult Acute Hypoglycemia Prot. Dextrose (D5w) 500 mls @ 100 mls/hr IV ONCE PRN; Protocol PRN Reason: Adult Acute Hypoglycemia Prot Insulin Human Lispro (Insulin Lispro 100 Unit/1 Ml) 0 unit SUBCUT WM&BEDTIME EVELYNE; Protocol Metoprolol Tartrate (Metoprolol Tartrate 25 Mg Tablet) 25 mg PO BID@0900,2100 EVELYNE Nitroglycerin (Nitroglycerin 0.4 Mg Sublingual Tablet) 0.4 mg SUBLINGUAL Q5M PRN PRN Reason: chest pain Nitroglycerin (Nitroglycerin 1 Gm/Inch Oint Pkt) 0.5 inch TOPICAL Q6H EVELYNE Last Admin: 07/27/21 14:54 Dose: Not Given Documented by: Ondansetron HCl (Ondansetron 2 Mg/Ml Sdv 2 Ml) 4 mg IVP Q8H PRN PRN Reason: vomiting, or N/V if npo Vitamin D (Cholecalciferol (Vitamin D3) 1,000 Unit Tablet) 1,000 unit PO DAILY EVELYNE Last Admin: 07/27/21 08:58 Dose: 1,000 unit Documented by: Vitals/I&O/Wt Last Vital Signs Temp 98.2 F 07/27/21 15:15 Pulse 78 07/27/21 15:15 Resp 19 H 07/27/21 15:15 BP 112/74 07/27/21 15:15 Pulse Ox 91 07/27/21 15:15 07/27/21 07/27/21 07/27/21 06:59 14:59 22:59 Intake Total 150 / 554.617 600 / 600 Output Total 2400 / 3300 Balance -2250 / -2745.383 600 / 600 Weight last 48 hrs Weight 190 lb Weight 196 lb 3.2 oz Weight 202 lb Physical Exam Narrative: EXAM NARRATIVE: GENERAL: obese woman in no acute distress HEENT: Pupils equal round reactive to light. No pallor or icterus. NECK: Elevated JVD. No carotid bruit. CARDIOVASCULAR SYSTEM: S1-S2 irregular. Grade 3/6 systolic murmur with radiation to carotids RESPIRATORY SYSTEM: Chest clear to auscultation. No wheezes rhonchi or rubs heard. No use of accessory muscles. ABDOMEN: Soft, nontender and nondistended. Normal bowel sounds present. EXTREMITIES: No cyanosis or clubbing. 1+ bilateral edema. No signs of chronic venous insufficiency. PATTERN CHANGER AND REPAIRER: Patient is alert oriented ?3. No focal neurological deficits. SKIN: Normal turgor and temperature. Urinary Catheter Management^: Ell[place]: Cath Placed During This Visit: yes Reason for Continuing Indwelling Catheter: Accurate Measurement of Urinary Output in Critically Ill Patients Urinary Catheter Date of Insertion: 07/26/21 Urinary Catheter Time of Insertion: 16:00 Data : 07/27/21 03:20 07/27/21 03:20 A&P Assessment and plan (1) Chest pressure: Baseline troponin of 16 that decreased to 15 and 6-hour troponin T of 15.7. -Previous stress test with some reversible ischemia in circumflex artery territory. (As documented in one of the notes I do not have actual report or images available for review.) -EKG with atrial fibrillation with alternating bundle branch block T wave inversion in anterolateral leads. Patient's prior EKG from January 2020 with normal sinus rhythm normal axis poor anterior R wave progression with T wave inversion V2 to V6. Patient was not on any AV tito blockers at home. -Normal LV function with mild aortic stenosis on echocardiogram. -Given her presentation with chest discomfort and progressively worsening shortness of breath along with new alternating bundle branch block and atrial fibrillation as well as prior history of mildly abnormal stress test, I think she would benefit from doing a left heart catheterization to rule out any sharla nary artery disease contributing to her alternating bundle branch block. -This was discussed with Dr. Montalvo as well as patient and her family. Plan is to proceed with the procedure tomorrow morning. Risks and benefits were discussed with the patients. Possible complications were reviewed with the patient as well. Plan is to proceed for the procedure at the earliest. Status: Acute (2) Heart failure: Heart failure with preserved ejection fraction -Decompensated likely in setting of newly diagnosed atrial fibrillation and alternating bundle branch block. -Agree with IV diuretics at present dose. -Intake/output charting, daily weight. Status: Acute Qualifiers: Heart failure type: diastolic Heart failure chronicity: acute Qual ified Code(s): I50.31 - Acute diastolic (congestive) heart failure (3) A-fib: Rate fairly controlled. -Started on low-dose beta-amy. -Transition from heparin to Lovenox. Status: Acute Qualifiers: Atrial fibrillation type: persistent (not longstanding) Qualified Code(s): I48.19 - Other persistent atrial fibrillation (4) Aortic stenosis: Plan to repeat echocardiogram. 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 Please feel free to call with questions or concerns. Attestations Medical Necessity Statement*: Needs hospital stay for congestive heart failure, atrial fibrillation, chest pain and newly diagnosed alternating bundle branch block Time Spent in Patient Care: Greater than 35 minutes Coding Level of Care Code Acute Umbrella Mender for Chg Fwd Diagnoses Chest pressure R07.89 Heart failure I50.31 Heart failure type: diastolic Heart failure chronicity: acute A-fib I48.19 Atrial fibrillation type: persistent (not longstanding) Aortic stenosis I35.0 Cardiac valve disease etiology: nonrheumatic Transaminitis R74.01 Essential hypertension I10 Hyperlipidemia E78.49 Hyperlipidemia type: other hyperlipidemia
--- NOTE | 2021-07-27 19:34 | PC.NURSE ---
dr lee ordered cardiac angiogram for tomorrow.no c/o cp this shift.
[2021-07-27 20:37] LABS: Glucose Point of Care 105 mg/dL (70-110)
[2021-07-27] MEDS: metoprolol tartrate 25 mg Tablet PO (20:53)
[2021-07-27] MEDS: famotidine 20 mg/2 mL INJ IVP (21:11)
[2021-07-28] VITALS (113 sets, daily range): BP systolic 99–137; BP diastolic 62–93; PULSE 61–131; RESP 4–51; TEMP 36.8; O2SAT 85–98; BMI 34.7
[2021-07-28 04:05] LABS: Basophils # 0.1 10^3/uL (0.0-0.1); Basophils % 0.8 %; Eosinophils # 0.1 10^3/uL (0.0-0.8); Eosinophils % 1.4 %; Hemoglobin 12.2 g/dL (11.5-15.3); Lymphocytes # 3.3 10^3/uL (0.8-4.8); Lymphocytes % 38.8 %; Mean Corpuscular HGB Conc 32.1 g/dL (30.0-36.0); Mean Corpuscular Hemoglobin 28.2 pg (28.0-34.0); Mean Platelet Volume 11.1 fL (7.4-10.4); Monocytes # 0.9 10^3/uL (0.2-0.9); Monocytes % 10.7 %; Neutrophils # 4.11 10^3/uL (1.8-7.7); Neutrophils % 47.8 %; Nucleated Red Blood Cells % 0 %; Platelet Count 231 10^3/cmm (130-400); Red Blood Count 4.32 10^6/uL (4.1-5.3); Red Cell Distribution Width 14.9 % (12.1-15.1); White Blood Count 8.6 10^3/uL (4.0-10.0)
[2021-07-28 04:36] LABS: Chol HDL Ratio 3.11 mg/dL (0.0-4.40); Cholesterol 109 mg/dL (0-200); HDL Cholesterol 35 mg/dL (60-100); LDL Cholesterol Calculated 55 mg/dL (50-129); Triglycerides 93 mg/dL (0-150); VLDL Cholestrol Calculation 19 mg/dL (0-30)
[2021-07-28 04:40] LABS: Alanine Aminotransferase 38 U/L (0-33); Albumin Level 3.8 g/dL (3.5-5.2); Alkaline Phosphatase 101 IU/L (35-105); Anion Gap 16.8 (5-19); Aspartate Amino Transferase 19 U/L (0-32); Blood Urea Nitrogen 15 mg/dL (8-23); Calcium 8.5 mg/dL (8.5-10.5); Carbon Dioxide 27 mmol/L (22-29); Chloride 101 mmol/L (98-107); Globulin 2.8 g/dL (1.3-4.6); Glucose 91 mg/dL (65-115); Osmolality Calculated 292 mOsm/kg (285-295); Potassium 3.8 mmol/L (3.5-5.1); Sodium 141 mmol/L (136-145); Total Bilirubin 0.5 mg/dL (0.15-1.2); Total Protein 6.6 g/dL (6.6-8.7)
[2021-07-28] MEDS: sodium chloride 0.9% 1,000 ML 50 ML IV (06:11)
[2021-07-28] MEDS: famotidine 20 mg/2 mL INJ IVP ×2 (06:13→18:39)
--- NOTE | 2021-07-28 06:47 | PC.NURSE ---
Frequent safety and comfort rounds continue. Orders and/or nursing care completed as indicated. Patient monitored for response to intervention and treatment(s). Education provided included IV fluids for cork slabs sawyer and nitroglycerin headaches. Patient and/or sales representative uniforms verbalizes understanding. Will continue to monitor.
[2021-07-28] MEDS: diphenhydrAMINE 50 mg Capsule PO (06:54)
--- NOTE | 2021-07-28 08:29 | W.PM.OPSUD ---
Surgery/Procedure H&P Update DATE OF PROCEDURE: July 28, 2021 DATE H&P PERFORMED: 07/27/21 H&P UPDATE INFORMATION: I have reviewed H&P completed within last 30 days, I have examined patient prior to procedure and No changes to prior documentation PREOP DIAGNOSIS: CHF with volume overload status, worsening of chest pain, abnormal stress PATIENT REASSESSED PRIOR TO SEDATION, WITH NO CHANGE NOTED: Yes PHYSICAL EXAM: alert, oriented x 3 and clear to auscultation bilaterally AIRWAY EVAL/ANESTHESIA PLAN: ASA II and Risks, benefits & alternatives of sedation and/or procedure discussed ADDITIONAL INFORMATION: Patient has been explained in detail by myself all risk benefit and alternative for the procedure. She understand risk for stroke hematoma infection urgent emergent bypass surgery major minor bleed pseudoaneurysm infection. She is a candidate for DAPT. She would like to proceed with angiogram.
--- NOTE | 2021-07-28 08:30 | XACV_ITS ---
Exam Room: [facility] Ht: 157 cm Wt: 86 kg BSA: 1.98 m2 Gender: Female : 1940 Any Known Allergies: Morphine Exam Priority: Routine Procedure(s): Procedure Description: Diagnostic procedure Procedure Description: Left Heart Catheterization Procedure Description: Left ventriculography Procedure Description: Coronary Angiography Diagnostic Cath Status: Urgent Diagnostic Findings * No disease noted in the Left Main, Left Anterior Descending, Right, or Circumflex coronary arteries. * Coronary angiography shows right dominance. Conclusions 1. No disease noted in the Left Main, Left Anterior Descending, Right, or Circumflex coronary arteries. 2. Normal left ventricular systolic function. Ejection fraction of 60%. Recommendations * Continue current medical management and risk factor modification. Ventriculography Ejection Fraction: 60.0 % Pressures Phase:Rest AO : 107 / 71 ( 85 ) @ 7:41:00 AM 115 / 75 ( 93 ) @ 7:50:00 AM 113 / 77 ( 93 ) @ 7:50:00 AM LV : 134 / -9 / 0 @ 7:49:00 AM 128 / -3 / 2 @ 7:50:00 AM 132 / -2 / 4 @ 7:50:00 AM Valves Phase:DefaultPhase AV : 16.0 @ 8:54:54 AM AV Mean Gradient: 14.0 @ 8:54:54 AM Clinical Evaluation EBL: 5mL-10mL Procedural Details Procedure Consent Obtained. Pre-Procedure Time Out. Identified patient by full name and date of as verbalized by the patient/guarantor. Does the consent match the physician's order: Yes. Accurate & Complete Informed Consent: Yes. Inpatient/Outpatient History & Physical on Chart: Yes. If H&P is completed, is and addenduem needed: No; If yes, is the addendum complete: N/A. Visualize and Verify Site with Patient/Guarantor: N/A. Relevant Radiology Images available: N/A. Pre-op teaching completed and patient verbalized understanding. The risks, benefits, and alternatives of sedation and/or procedure were discussed by physician. The patient agrees to continue. Procedure started. [facility] Clinical Fraility Score: 4: Vulnerable. Thermostat Machine Tender Indications: New Onset Angina. Chest Pain Symptom Assessment: Typical Angina Symptoms. Cardiovascular Instability: No. Correct patient, site and procedure confirmed by cath team. PERRLA. Strong, equal hand as400 analyst bilaterally. Lungs clear x 5 lobes. Miguel Angel Jordan will be centrifugal chiller technician for procedure. IV Fluids: 0.9% NaCl at KVO. 0 mL infused prior to construction craft laborer. Pre Procedural Pulses: bilateral dorsalis pedis was 1+. Physician arrived. Equipment: 6F - Radial. Cardiac Cath Pack. ACIST Manifold Kit Model BT 2000. Heparinized Saline (2 units/mL), 1000 mL bag. Oxygen started at 2liters/min via nasal canula. Baseline sample Acquired. HR: 110 BPM. right groin was prepped with chloroprep then draped in the usual sterile fashion. right radial was prepped with chloroprep then draped in the usual sterile fashion. Physician scrubbed in. Immediate Pre-Procedure Time Out. Correct Patient: Yes; Correct Procedure: Yes; Correct Site: Yes; Correct Patient Position: Yes; Correct Supplies: Yes; Dried Flammable Prep: Yes; Blood Products Available: N/A;. Lidocaine 1% infiltrated to the right radial. Arterial access obtained. A Wearhausumo 5 Fr Lucius Radial Catheter, 110cm was advanced over the wire and used for Left coronary angiography. Multiple views taken of left coronary artery. Catheter redirected to the RCA. Multiple views taken of right coronary artery. Catheter removed over the exchange wire. A 5 kiswahili Angled Pig catheter in over wire. EDP Sample taken: LV 134/-10,-1; HR: 122 BPM; SpO2: 93%. LV gram performed in SMITH @ 10 mL/second for a total of 30 mL. EDP Sample taken: LV 128/-4,2; HR: 118 BPM; SpO2: 93%. Pullback taken: LV 132/-3,4; AO 115/75(93); Mean: 14mmHg, Peak to Peak: 16mmHg, SEP: 22sec/min; HR: 112 BPM; SpO2: 93%. Catheter removed over the exchange wire. Physician scrubbed out. A TR Band was successful obtaining hemostatsis at the Right Radial artery insertion site. TR band placed. Hemostasis obtained. Post Procedure: Pulses reassessed and unchanged. PERRLA. Strong, equal hand as400 analyst bilaterally. No VTE prophylaxis required. Medication's Wasted: Lidocaine 1% = 18 mL. Medication's Wasted: Nitro = 49.8 mg. Medication's Wasted: Heparin = 1000 units. Total IV fluids: 29 mL. Contrast type used: Omnipaque 300 mgI/mL, 500 mL bottle. Post-op diagnosis: normal coronaries. Complications: none. Estimated blood loss: 5mL-10mL. Procedure completed. Patient transferred by wheelchair to 1st floor. Vital chart was stopped. Access Site Site: Right Radial artery Sheath Size: 5 Fr Hemostasis Method: TR Band Hemostasis Success: Successful Procedure Medications Start: 8:25 AM Stop: 8:25 AM Medication: Fentanyl Amount: 50 mcg Route: I.V. Start: 8:34 AM Stop: 8:34 AM Medication: Versed Amount: 1 mg Route: I.V. Start: 8:38 AM Stop: 8:38 AM Medication: Nitrogylcerin Amount: 200 mcg Route: I.A. Start: 8:41 AM Stop: 8:41 AM Medication: Heparin Amount: 5000 units Route: I.V. I, the attending physician, have reviewed and verified all procedure medications. Yes, all medications given per verbal order History/Risk Factors Hypertension: Yes Dyslipidemia: Yes Peripheral Arterial Disease (PAD): No Myocardial Infarction (OK): No Obesity: Yes Renal Disease: No Tobacco Use: Never Prior Interventions PCI: No CABG: No Valve Surgery: No Report Signatures Finalized by Charan Montalvo MD on 08/11/2021 09:08 PM
[2021-07-28 09:57] LABS: Glucose Point of Care 112 mg/dL (70-110)
--- NOTE | 2021-07-28 09:57 | PM.PN ---
Subjective Subjective: Interval history: Patient underwent left heart cath noted to have no significant coronary artery disease with good LV function 60% ejection fraction. She was noted to be in A. fib with rapid ventricle response. Medications: Reviewed: Yes Medication Review Details: Current Medications Acetaminophen (Acetaminophen 325 Mg Tablet) 650 mg PO Q6H PRN PRN Reason: Mild/Mod Pain Or Temp >/= 101 Last Admin: 07/27/21 03:34 Dose: 650 mg Documented by: Aspirin (Aspirin 81 Mg Ec Tablet) 81 mg PO DAILY EVELYNE Last Admin: 07/27/21 08:58 Dose: 81 mg Documented by: Atorvastatin Calcium (Atorvastatin 40 Mg Tablet) 80 mg PO DAILY EVELYNE Last Admin: 07/27/21 08:59 Dose: 80 mg Documented by: Bisacodyl (Bisacodyl 5 Mg Tablet) 10 mg PO DAILY PRN; Protocol PRN Reason: Constipation (see protocol) Dextrose (Dextrose 50% Syringe 50 Ml) 25 ml IVP ONCE PRN; Protocol PRN Reason: hypoglycemia protocol Dextrose (Dextrose 50% Syringe 50 Ml) 50 ml IVP PRN PRN; Protocol PRN Reason: hypoglycemia protocol Enoxaparin Sodium (Enoxaparin 100 Mg/Ml Syringe) 90 mg 1 mg/kg (90 mg) SUBCUT Q12H EVELYNE Famotidine (Famotidine 20 Mg/2 Ml Inj) 20 mg IVP Q12H EVELYNE Furosemide (Furosemide 10 Mg/Ml Sdv 4ml) 40 mg IVP Q12H EVELYNE Last Admin: 07/27/21 08:58 Dose: 40 mg Documented by: Glucagon (Glucagon 1 Mg/Ml Inj 1 Ml) 1 mg IM ONCE PRN; Protocol PRN Reason: Adult Acute Hypoglycemia Prot. Dextrose (D5w) 500 mls @ 100 mls/hr IV ONCE PRN; Protocol PRN Reason: Adult Acute Hypoglycemia Prot Insulin Human Lispro (Insulin Lispro 100 Unit/1 Ml) 0 unit SUBCUT WM&BEDTIME EVELYNE; Protocol Metoprolol Tartrate (Metoprolol Tartrate 25 Mg Tablet) 25 mg PO BID@0900,2100 EVELYNE Nitroglycerin (Nitroglycerin 0.4 Mg Sublingual Tablet) 0.4 mg SUBLINGUAL Q5M PRN PRN Reason: chest pain Nitroglycerin (Nitroglycerin 1 Gm/Inch Oint Pkt) 0.5 inch TOPICAL Q6H EVELYNE Last Admin: 07/27/21 14:54 Dose: Not Given Documented by: Ondansetron HCl (Ondansetron 2 Mg/Ml Sdv 2 Ml) 4 mg IVP Q8H PRN PRN Reason: vomiting, or N/V if npo Vitamin D (Cholecalciferol (Vitamin D3) 1,000 Unit Tablet) 1,000 unit PO DAILY EVELYNE Last Admin: 07/27/21 08:58 Dose: 1,000 unit Documented by: Vitals/I&O/Wt Last Vital Signs Temp 98.2 F 07/28/21 05:05 Pulse 89 07/28/21 05:08 Resp 19 H 07/28/21 05:05 BP 136/93 07/28/21 05:05 Pulse Ox 87 L 07/28/21 05:05 07/27/21 07/28/21 07/28/21 22:59 06:59 14:59 Intake Total 240 / 840 240 / 1080 Output Total 1700 / 1700 5300 / 7000 Balance -1460 / -860 -5060 / -5920 Weight last 48 hrs Weight 190 lb Weight 190 lb Weight 196 lb 3.2 oz Weight 202 lb Physical Exam Narrative: EXAM NARRATIVE: GENERAL: Patient is alert, awake and oriented x3. NECK: No jugular vein distension. HEENT: No cyanosis. No icterus. No pallor. HEART: Irregularly irregular S1 and S2. No murmur, rub or gallop. LUNGS: Clear to auscultate bilaterally. ABDOMEN: Soft, nontender and nondistended. Positive bowel sounds. No guarding, rebound or tenderness. CENTRAL NERVOUS SYSTEM: Grossly nonfocal. EXTREMITIES: Lower extremities without edema bilaterally. Const: COMMON NORMALS: alert Resp: COMMON NORMALS: clear to auscultation bilaterally AUSCULTATION: clear to auscultation bilaterally Neuro: SENSORIUM/ORIENTATION: Yes alert Urinary Catheter Management^: Ellington: Cath Placed During This Visit: yes Reason for Continuing Indwelling Catheter: Accurate Measurement of Urinary Output in Critically Ill Patients Urinary Catheter Date of Insertion: 07/26/21 Urinary Catheter Time of Insertion: 16:00 Data : 07/28/21 03:24 07/28/21 03:24 A&P Assessment and plan (1) Chest pressure: Patient underwent left heart cath noted to have no significant coronary artery disease most likely chest pressure was atypical and due to rapid ventricle response. She need to be controlled more with the heart rate.. Status: Acute (2) Heart failure: Appear to be euvolemic we will switch her to p.o. Lasix 40 mg once a day from tomorrow. E Status: Acute Qualifiers: Heart failure type: diastolic Heart failure chronicity: acute Qualified Code(s): I50.31 - Acute diastolic (congestive) heart failure (3) A-fib: . We will switch patient to oral anticoagulation. Not well controlled I will add Cardizem 120 mg on top of metoprolol Status: Acute Qualifiers: Atrial fibrillation type: persistent (not longstanding) Qualified Code(s): I48.19 - Other persistent atrial fibrillation (4) Aortic stenosis: Mild aortic stenosis as there was mild peak to peak gradient during pullback in left heart cath. Status: Acute Qualifiers: Cardiac valve disease etiology: nonrheumatic Qualified Code(s): I35.0 - Nonrheumatic aortic (valve) stenosis (5) Transaminitis: Status: Acute (6) Essential hypertension: Well-controlled. 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 Please feel free to call with questions or concerns. Attestations Medical Necessity Statement*: Patient require continuation hospitalization for above defined care. Coding Level of Care Code Established Pt Acute Qualitative Field Coordinator for Luisa Medley Patient Type Established History Detailed Exam Detailed Medical Decision Making Moderate Complexity Diagnoses Chest pressure R07.89 Heart failure I50.31 Heart failure type: diastolic Heart failure chronicity: acute A-fib I48.19 Atrial fibrillation type: persistent (not longstanding) Aortic stenosis I35.0 Cardiac valve disease etiology: nonrheumatic Transaminitis R74.01 Essential hypertension I10 Hyperlipidemia E78.49 Hyperlipidemia type: other hyperlipidemia
[2021-07-28] MEDS: FUROsemide 10 mg/mL SDV 4mL 40 MG IVP ×2 (10:17→21:09)
[2021-07-28] MEDS: dilTIAZem ER (24HR) 120 mg Capsule PO (10:22)
[2021-07-28] MEDS: atorvastatin 40 mg Tablet 80 MG PO (10:35)
[2021-07-28] MEDS: cholecalciferol (vitamin D3) 1,000 unit Tablet 1000 UNIT PO (10:35)
[2021-07-28] MEDS: metoprolol tartrate 25 mg Tablet PO ×2 (10:36→21:09)
[2021-07-28] MEDS: aspirin 81 mg EC Tablet PO (10:36)
[2021-07-28 11:38] LABS: Glucose Point of Care 137 mg/dL (70-110)
--- NOTE | 2021-07-28 13:19 | PC.NURSE ---
return from cardiac animal laboratory helper at 0905.report received.pt is awake...though a little drowsy.denies pain.afib on monitor at controlled rate.right wrist with tr band on and inflated.right hand is warm to touch and with brisk capillary refill.no hematoma noted.palable radial pulse noted distal to tr band.instructed in activity restrictions s/p radial artery procedure..and instructed ti notify staff for any bleeding,pain,numbness,or for any concerns at all.pt verb understanding of instructions
--- NOTE | 2021-07-28 15:42 | PM.PN ---
Subjective Subjective: Interval history: Overnight patient had heart rate running in 110s. Today morning patient seen post cardiac catheterization. 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 On examination lying comfortably in bed with family at bedside Vitals/I&O/Wt Last Vital Signs Temp 98.2 F 07/28/21 05:05 Pulse 77 07/28/21 15:00 Resp 22 H 07/28/21 15:00 BP 99/64 07/28/21 15:00 Pulse Ox 94 07/28/21 15:00 07/28/21 07/28/21 07/28/21 06:59 14:59 22:59 Intake Total 240 / 1080 1000 / 1000 Output Total 5300 / 7000 1200 / 1200 Balance -5060 / -5920 1000 / 1000 -1200 / -200 Weight last 48 hrs Weight 86.183 kg Weight 86.183 kg Physical Exam Narrative: EXAM NARRATIVE: General: No acute distress, AO x3 HEENT: PERRLA, pupils bilaterally equal and reactive Chest: Normal vesicular breath sounds, no added sounds, equal good air entry bilaterally CVS: S1-S2 irregularly irregular , ejection systolic murmur at aortic region 2/6 radial carotids, tachycardia, no gallops, no rubs Abdomen: Soft, nontender, no organomegaly, bowel sounds present Neuro: No focal deficits, no facial deformity, AO x3, power 5/5 in all limbs Urinary Catheter Management^: Ellington: Cath Placed During This Visit: yes Reason for Continuing Indwelling Catheter: Accurate Measurement of Urinary Output in Critically Ill Patients Urinary Catheter Date of Insertion: 07/26/21 Urinary Catheter Time of Insertion: 16:00 Data : 07/28/21 03:24 07/28/21 03:24 A&P Assessment and plan (1) Chest pressure: Status: Acute (2) A-fib: New onset atrial fibrillation TSH Metoprolol tartrate 12.5 mg p.o. twice daily Lovenox 90 subcu twice daily Status: Acute Qualifiers: Atrial fibrillation type: persistent (not longstanding) Qualified Code(s): I48.19 - Other persistent atrial fibrillation (3) Aortic stenosis: Status: Acute Qualifiers: Cardiac valve disease etiology: nonrheumatic Qualified Code(s): I35.0 - Nonrheumatic aortic (valve) stenosis (4) Diastolic heart failure: Status: Acute (5) Hypertension: No known history of hypertension in the past not any antihypertensive medication at home. Amlodipine 5 mg p.o. Status: Acute Additional A&P Information Chest pressure: Most likely secondary to congestive heart failure from atrial fibrillation. CAD ruled out with cardiac angiogram. Continue with aspirin, statin, beta-amy. Check lipid panel. A1c 6.2. Oxygen supplementation keeping saturation over 90%. Cannot rule out CAD, unstable angina. Possible history of positive/abnormal stress test though not available in the system. Cardiology consulted. Recommendations appreciated. Atrial fibrillation: Rate controlled currently. Cardizem added as per cardiology recommendations. Continue with metoprolol at 25 mg twice daily. Patient is agreeable for anticoagulation. Discussed the merits versus merits. Jose Angel vas score: 5 because of hypertension, congestive heart failure, female, age more than 75. Session full dose Lovenox to Eliquis 5 mg twice daily. Alternating bundle branch block: We will await cardiology recommendations for pacemaker implantation. Currently no heart block. Diastolic heart failure: Echocardiogram results appreciated. Possible normal EF, technical difficult study. Mild to moderate aortic stenosis. Continue with IV Lasix 40 mg twice daily for 1 more day. Will switch over to oral Lasix from tomorrow. Strict input output charting. Daily weight. Continue Ellington catheterization for now. Fluid restriction up to 1500 cc. Hypertension: Goal blood pressure less than 140/90 mmHg. Continue metoprolol and Cardizem. Type 2 diabetes mellitus: New diagnosis. A1c 6.2. Insulin sliding scale at low-dose protocol. Most likely patient can be discharged on oral Metformin. Cardiac carb consistent diet. Full dose Lovenox will help with DVT prophylaxis. Famotidine for PUD prophylaxis Attestations Medical Necessity Statement*: Requires further hospitalization for management of atrial fibrillation, diastolic heart failure Time Spent in Patient Care: Greater than 35 minutes (>than 50% of time spent in counselling and/or direct pt care on unit). Coding Level of Care Code Acute Talent Acquisition Specialist for Chg Fwd Diagnoses Chest pressure R07.89 A-fib I48.19 Atrial fibrillation type: persistent (not longstanding) Aortic stenosis I35.0 Cardiac valve disease etiology: nonrheumatic Diastolic heart failure I50.30 Hypertension I10
[2021-07-28 16:37] LABS: Glucose Point of Care 133 mg/dL (70-110)
[2021-07-28 18:37] LABS: Anion Gap 15.5 (5-19); Blood Urea Nitrogen 14 mg/dL (8-23); Calcium 8.5 mg/dL (8.5-10.5); Carbon Dioxide 27 mmol/L (22-29); Chloride 99 mmol/L (98-107); Glucose 144 mg/dL (65-115); Osmolality Calculated 287 mOsm/kg (285-295); Potassium 4.5 mmol/L (3.5-5.1); Sodium 137 mmol/L (136-145)
--- NOTE | 2021-07-28 19:49 | PC.NURSE ---
pt had cardiac cath today.no intervention.tolerated well.right wrist remains with drsg intact and with no hematoma formation noted.plan to dc to home tomorrow.
[2021-07-28 21:02] LABS: Glucose Point of Care 110 mg/dL (70-110)
[2021-07-28] MEDS: apixaban 5 mg Tablet PO (21:09)
[2021-07-29 04:00] VITALS: BP 163/80; PULSE 80; RESP 24; TEMP 36.6; O2SAT 95
[2021-07-29 04:48] LABS: Basophils # 0.1 10^3/uL (0.0-0.1); Basophils % 0.6 %; Eosinophils # 0.1 10^3/uL (0.0-0.8); Eosinophils % 1.5 %; Hematocrit 39.2 % (37.0-47.0); Hemoglobin 12.7 g/dL (11.5-15.3); Lymphocytes # 3.3 10^3/uL (0.8-4.8); Lymphocytes % 36.8 %; Mean Corpuscular HGB Conc 32.4 g/dL (30.0-36.0); Mean Corpuscular Hemoglobin 28.4 pg (28.0-34.0); Mean Corpuscular Volume 87.7 fl (81-99); Mean Platelet Volume 10.7 fL (7.4-10.4); Monocytes # 0.9 10^3/uL (0.2-0.9); Monocytes % 9.9 %; Neutrophils # 4.53 10^3/uL (1.8-7.7); Neutrophils % 50.8 %; Nucleated Red Blood Cells % 0 %; Platelet Count 231 10^3/cmm (130-400); Red Blood Count 4.47 10^6/uL (4.1-5.3); Red Cell Distribution Width 14.9 % (12.1-15.1); White Blood Count 8.9 10^3/uL (4.0-10.0)
[2021-07-29 05:12] LABS: Alanine Aminotransferase 29 U/L (0-33); Albumin Level 3.8 g/dL (3.5-5.2); Alkaline Phosphatase 95 IU/L (35-105); Anion Gap 15.9 (5-19); Aspartate Amino Transferase 15 U/L (0-32); Blood Urea Nitrogen 15 mg/dL (8-23); Calcium 8.5 mg/dL (8.5-10.5); Carbon Dioxide 27 mmol/L (22-29); Chloride 101 mmol/L (98-107); Globulin 2.7 g/dL (1.3-4.6); Glucose 96 mg/dL (65-115); Osmolality Calculated 291 mOsm/kg (285-295); Potassium 3.9 mmol/L (3.5-5.1); Sodium 140 mmol/L (136-145); Total Bilirubin 0.5 mg/dL (0.15-1.2); Total Protein 6.5 g/dL (6.6-8.7)
[2021-07-29 05:19] VITALS: PULSE 71
[2021-07-29 06:08] LABS: Glucose Point of Care 111 mg/dL (70-110)
[2021-07-29] MEDS: cholecalciferol (vitamin D3) 1,000 unit Tablet 1000 UNIT PO (07:49)
[2021-07-29] MEDS: atorvastatin 40 mg Tablet 80 MG PO (07:49)
[2021-07-29] MEDS: dilTIAZem ER (24HR) 120 mg Capsule PO (07:49)
[2021-07-29] MEDS: aspirin 81 mg EC Tablet PO (07:49)
[2021-07-29] MEDS: famotidine 20 mg/2 mL INJ IVP (07:50)
[2021-07-29] MEDS: metoprolol tartrate 25 mg Tablet PO (07:50)
[2021-07-29] MEDS: apixaban 5 mg Tablet PO (07:50)
[2021-07-29] MEDS: FUROsemide 10 mg/mL SDV 4mL 40 MG IVP (07:50)
[2021-07-29 08:00] VITALS: BP 126/88; PULSE 95; RESP 24; TEMP 36.6; O2SAT 95
[2021-07-29] MEDS: ondansetron 2 mg/ML SDV 2 mL 4 MG IVP (08:06)
--- NOTE | 2021-07-29 09:19 | PC.NURSE ---
0700 Report received, assessment completed. Pt AAOX4. Makes all needs known. Lung sounds CTA. Denies any pain or SOB. O2 turned off at 0640 during walking rounds, tolerating well. VSS. Ellington cath in place draining freely to BSD. Will continue to monitor.
--- NOTE | 2021-07-29 10:01 | PC.SOCIAL ---
Pg 2 IMM Explained to pt Pg 2 IMM. No questions voiced. Provided pt a copy. Initialed, dated, & timed a copy & placed in chart.
[2021-07-29 11:00] LABS: Glucose Point of Care 98 mg/dL (70-110)
[2021-07-29 12:00] VITALS: BP 126/70; PULSE 101; RESP 24; TEMP 36.6; O2SAT 95
--- NOTE | 2021-07-29 12:36 | PM.DCS ---
Discharge Providers Date of Admission: 07/26/21 13:53 Date of Discharge: July 29, 2021 Attending Provider at Admission: Jamie Lopez MD Attending Provider at Discharge: Catalino Sellers MD Consults: Cardiology: Dr. Montalvo Primary Care Provider: Estee Novak MD Diagnoses at Discharge Discharge Diagnosis (1) Chest pressure: Status: Acute (2) A-fib: Status: Acute Qualifiers: Atrial fibrillation type: persistent (not longstanding) Qualified Code(s): I48.19 - Other persistent atrial fibrillation (3) Aortic stenosis: Status: Acute Qualifiers: Cardiac valve disease etiology: nonrheumatic Qualified Code(s): I35.0 - Nonrheumatic aortic (valve) stenosis (4) Diastolic heart failure: Status: Acute (5) Hypertension: Status: Acute Reason for Visit Reason for Visit: CHEST PAIN (TOOK 3 NITRO THIS AM) Hospital Course Hospital Course Radha Samuel is a 81 year old female with past medical history of hypertension, hyperlipidemia, obesity BMI ~ 37, systolic murmur, mild aortic stenosis and anxiety presented to the ER with complaints of chest discomfort and worsening shortness of breath.She complains of progessively worsening MCGHEE for last several months. She was able to walk 1/4th of a mile before and now walking across the house makes her SOB. She had chest pain (8/10) around 2 am and needed to use NTG. Chest pain described as heaviness and associated with palpitation and heart racing. No known h/o CAD or stent. Abnormal stress test at [facility] a year or two ago and [facility] was planned in 01/[address] Garzon. She is currently being followed by Dr. Montalvo and saw him about 10 days ago.Echocardiogram was ordered but patient continues to have worsening of her shortness of breath and given chest discomfort earlier this morning decided to come to the ER. On waking up around 2 in the morning she also felt her heart racing with a maximum heart rate being 110. Patient states that she has been having these episodes for the past year on and off. She has never been diagnosed with atrial fibrillation. No URI or UTI-like symptoms. No sick contacts. Rapid Covid antigen testing was negative in ER. EKG today showed atrial fibrillation with right axis deviation with heart rate at 106 bpm. Intraventricular conduction delay. Possible anterior DC of indeterminate age. A. fib and IVCD (LBBB like morphology) new when compared to old EKG earlier this year. Anterolateral DC of indeterminate age. Subsequent EKG showed atrial fibrillation with normal axis and right khlqzr-[id number] morphology with deep T wave inversion noted in anterolateral leads. Patient was admitted to the hospital and started on IV diuresis with Lasix. On admission she was found to be atrial fibrillation with rapid ventricular response for which her heart rate limiting medications were adjusted. She responded well to the treatment and diuresed well. By the day of discharge she is net 9 L negative. Echocardiogram was done which showed EF of 60% with mild concentric LVH, abnormal septal motion consistent with conduction abnormality, abnormal diastolic function, mild aortic valve stenosis with peak gradient of 40 and mean of 11. 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 Intervention cardiology was consulted and she underwent cardiac catheterization on May 28 after she had achieved euvolemia which showed nonobstructive CAD. Her rate limiting medications were further adjusted. Patient was started on anticoagulation with Eliquis after confirmation. She is been discharged in hemodynamically stable condition on metoprolol 25 mg twice daily, Cardizem 120 mg daily, Eliquis and aspirin. She has been advised for an event monitor for possible pauses due to alternating bundle blocks. Further decision about possible pacemaker plantation will be made depending on the event monitor. She is to follow-up with cardiology within 2 to 3 weeks. She is advised to continue with fluid restriction up to 1500 cc and low-salt diet. Physical Exam Narrative: EXAM NARRATIVE: General: No acute distress, AO x3 HEENT: PERRLA, pupils bilaterally equal and reactive Chest: Normal vesicular breath sounds, no added sounds, equal good air entry bilaterally CVS: S1-S2 irregularly irregular , ejection systolic murmur at aortic region 2/6 radial carotids, tachycardia, no gallops, no rubs Abdomen: Soft, nontender, no organomegaly, bowel sounds present Neuro: No focal deficits, no facial deformity, AO x3, power 5/5 in all limbs Urinary Catheter Management^: Ell[place]: Cath Placed During This Visit: yes Reason for Continuing Indwelling Catheter: Accurate Measurement of Urinary Output in Critically Ill Patients Urinary Catheter Date of Insertion: 07/26/21 Urinary Catheter Time of Insertion: 16:00 Discharge Data Data Completed and Pending: Completed Studies During Hospitalization Category Date Time Status CT angio chest PE protcl [id number] Urge nt Cat Scan 07/26/21 11:48 Completed XR chest 1V fawn ble [id number] Stat Exams 07/26/21 11:17 Completed CV. echo complete * [id number] Routine Ultrasound 07/27/21 16:04 Completed Pending at discharge Category Date Time Status LAYER OUT PLATE GLASS request for service Routin e Exams 07/28/21 08:30 Taken Labs from last 24 hours 07/29/21 07/29/21 07/29/21 10:47 06:04 04:29 WBC RBC Hgb Hct MCV MCH MCHC RDW Plt Count MPV Neut % (Auto) Lymph % (Auto) Lake % (Auto) Eos % (Auto) Baso % (Auto) Neut # (Auto) Lymph # (Auto) Lake # (Auto) Eos # (Auto) Baso # (Auto) Nucleated RBC % (a uto) Nucleated RBCs # Sodium 140 Potassium 3.9 Chloride 101 Carbon Dioxide 27 Anion Gap 15.9 BUN 15 Creatinine 0.6 GFR Calculation Not Reportable Glucose 96 POC Glucose 98 111 H Calculated Osmolal ity 291 Calcium 8.5 Total Bilirubin 0.5 AST 15 ALT 29 Alkaline Phosphata se 95 Total Protein 6.5 L Albumin 3.8 Globulin 2.7 07/29/21 07/28/21 07/28/21 04:29 20:08 17:51 WBC 8.9 RBC 4.47 Hgb 12.7 Hct 39.2 MCV 87.7 MCH 28.4 MCHC 32.4 RDW 14.9 Plt Count 231 MPV 10.7 H Neut % (Auto) 50.8 Lymph % (Auto) 36.8 Lake % (Auto) 9.9 Eos % (Auto) 1.5 Baso % (Auto) 0.6 Neut # (Auto) 4.53 Lymph # (Auto) 3.3 Lake # (Auto) 0.9 Eos # (Auto) 0.1 Baso # (Auto) 0.1 Nucleated RBC % (a uto) 0 Nucleated RBCs # 0.0 Sodium 137 Potassium 4.5 Chloride 99 Carbon Dioxide 27 Anion Gap 15.5 BUN 14 Creatinine 0.6 GFR Calculation Not Reportable Glucose 144 H POC Glucose 110 Calculated Osmolal ity 287 Calcium 8.5 Total Bilirubin AST ALT Alkaline Phosphata se Total Protein Albumin Globulin 07/28/21 16:32 WBC RBC Hgb Hct MCV MCH MCHC RDW Plt Count MPV Neut % (Auto) Lymph % (Auto) Lake % (Auto) Eos % (Auto) Baso % (Auto) Neut # (Auto) Lymph # (Auto) Lake # (Auto) Eos # (Auto) Baso # (Auto) Nucleated RBC % (a uto) Nucleated RBCs # Sodium Potassium Chloride Carbon Dioxide Anion Gap BUN Creatinine GFR Calculation Glucose POC Glucose 133 H Calculated Osmolal ity Calcium Total Bilirubin AST ALT Alkaline Phosphata se Total Protein Albumin Globulin Addt'l Data from Hospital Stay: Laboratory Results WBC 8.9 10^3/uL (4.0- 10.0) 07/29/21 04:29 RBC 4.47 10^6/uL (4.1 -5.3) 07/29/21 04:29 Hgb 12.7 g/dL (11.5-1 5.3) 07/29/21 04:29 Hct 39.2 % (37.0-47.0 ) 07/29/21 04:29 MCV 87.7 fl (81-99) 07/29/21 04:29 MCH 28.4 pg (28.0-34. 0) 07/29/21 04:29 MCHC 32.4 g/dL (30.0-3 6.0) 07/29/21 04:29 RDW 14.9 % (12.1-15.1 ) 07/29/21 04:29 Plt Count 231 10^3/cmm (130 -400) 07/29/21 04:29 MPV 10.7 fL (7.4-10.4 ) H 07/29/21 04:29 Neut % (Auto) 50.8 % 07/29/21 04:29 Lymph % (Auto) 36.8 % 07/29/21 04:29 Lake % (Auto) 9.9 % 07/29/21 04:29 Eos % (Auto) 1.5 % 07/29/21 04:29 Baso % (Auto) 0.6 % 07/29/21 04:29 Neut # (Auto) 4.53 10^3/uL (1.8 -7.7) 07/29/21 04:29 Lymph # (Auto) 3.3 10^3/uL (0.8- 4.8) 07/29/21 04:29 Lake # (Auto) 0.9 10^3/uL (0.2- 0.9) 07/29/21 04:29 Eos # (Auto) 0.1 10^3/uL (0.0- 0.8) 07/29/21 04:29 Baso # (Auto) 0.1 10^3/uL (0.0- 0.1) 07/29/21 04:29 Nucleated RBC % (a uto) 0 % 07/29/21 04:29 Nucleated RBCs # 0.0 /100WBC 07/29/21 04:29 PT 12.90 SECONDS (12 .1-14.9) 07/26/21 10:57 INR 0.95 (0.8-1.2) 07/26/21 10:57 APTT 62.5 SECONDS (23. 9-36.7) H D 07/26/21 21:50 D-Dimer 1.35 ug/mIFEU (0- 0.59) H 07/26/21 10:57 Sodium 140 mmol/L (136-1 45) 07/29/21 04:29 Potassium 3.9 mmol/L (3.5-5 .1) 07/29/21 04:29 Chloride 101 mmol/L (98-10 7) 07/29/21 04:29 Carbon Dioxide 27 mmol/L (22-29) 07/29/21 04:29 Anion Gap 15.9 (5-19) 07/29/21 04:29 BUN 15 mg/dL (8-23) 07/29/21 04:29 Creatinine 0.6 mg/dL (0.5-0. 9) 07/29/21 04:29 GFR Calculation Not Reportable 07/29/21 04:29 Glucose 96 mg/dL (65-115) 07/29/21 04:29 POC Glucose 98 mg/dL (70-110) 07/29/21 10:47 Estimat Average Gl ucose 131 07/27/21 03:20 Hemoglobin A1c 6.2 % (4.0-6.0) H 07/27/21 03:20 Calculated Osmolal ity 291 mOsm/kg (285- 295) 07/29/21 04:29 Calcium 8.5 mg/dL (8.5-10 .5) 07/29/21 04:29 Magnesium 1.8 mg/dL (1.7-2. 3) 07/27/21 03:20 Total Bilirubin 0.5 mg/dL (0.15-1 .2) 07/29/21 04:29 AST 15 U/L (0-32) 07/29/21 04:29 ALT 29 U/L (0-33) 07/29/21 04:29 Alkaline Phosphata se 95 IU/L (35-105) 07/29/21 04:29 Troponin T Baselin e 16 ng/L (0-10) H 07/26/21 10:57 Troponin T 120 Min tracy 14.61 ng/L (0-10) H 07/26/21 13:19 Delta Troponin T -1.39 ABS# (0-10) L 07/26/21 13:19 Troponin T Hi Sens 6Hr 15.73 ng/L (0-10) H 07/26/21 17:45 Troponin T Hi Sens 6Hr Delta -0.27 ng/L (0-12) L 07/26/21 17:45 NT-Pro-B Natriuret Pep 2127 pg/mL (0-450 ) H 07/26/21 10:57 Total Protein 6.5 g/dL (6.6-8.7 ) L 07/29/21 04:29 Albumin 3.8 g/dL (3.5-5.2 ) 07/29/21 04:29 Globulin 2.7 g/dL (1.3-4.6 ) 07/29/21 04:29 Triglycerides 93 mg/dL (0-150) 07/28/21 03:24 Cholesterol 109 mg/dL (0-200) 07/28/21 03:24 LDL Cholesterol, C alc 55 mg/dL (50-129) 07/28/21 03:24 Total VLDL Cholest juliet 19 mg/dL (0-30) 07/28/21 03:24 HDL Cholesterol 35 mg/dL (60-100) L 07/28/21 03:24 Cholesterol/HDL Ra mely 3.11 mg/dL (0.0-4 .40) 07/28/21 03:24 Lipase 16 U/L (13-60) 07/26/21 10:57 TSH 4.02 uIU/mL (0.27 -4.20) 10/18/21 03:20 SARS-CoV-2 Ag (Rap id) Negative (Negati ve) 07/26/21 13:31 Impressions Chest X-Ray 07/26/21 11:17 IMPRESSION: 1. Nonspecific bibasilar consolidation is present, consistent with atelectasis, edema, or pneumonia. 2. Central vessels are origin and there is interstitial prominence and Benjie B lines compatible with mild CHF. Radiation Dose CTDIVOL = (mGy): DLP = (mGy-cm) Chest CTA 07/26/21 11:48 IMPRESSION: 1. There is no pulmonary embolus. 2. The ascending thoracic aorta measures 4 cm in size. No evidence of mural hematoma or dissection. 3. There is diffuse interstitial and ground-glass opacity in the lungs especially both lower lobes compatible with pneumonitis or edema. There is also dependent atelectasis. Radiation Dose CTDIVOL = (mGy): DLP = 560.21 (mGy-cm) Echocardiogram CONCLUSIONS 1. This is a technically difficult study. 2. Normal left ventricular cavity size. Mild concentric left ventricular hypertrophy. Normal left ventricular systolic function. Left ventricular ejection fraction is estimated at 60 %. Abnormal septal motion consistent with conduction abnormality. Abnormal diastolic function. 3. Normal right ventricular size and systolic function. 4. Moderately thickened and calcified trileaflet aortic valve (left coronary cusp appears to have restricted motion). Mild aortic valve stenosis, peak velocity 2.7 m/s, peak gradient 40 mmHg, mean gradient 11.8 mmHg, RORO 1.3 cm squared (LVOT =20 mm). 5. No prior similar studies to compare Vitals: Last Vital Signs Temp 98 F 07/29/21 08:00 Pulse 95 07/29/21 08:00 Resp 24 H 07/29/21 08:00 BP 126/88 07/29/21 08:00 Pulse Ox 95 07/29/21 08:00 Discharge Plan Discharge Patient Disposition: Home Condition: Stable Prescriptions: New aspirin 81 mg Tablet,Delayed Release (Dr/Ec) 81 mg PO DAILY 30 Days Qty: 30 RF: 0 diltiazem HCl 120 mg Capsule,Extended Release 24hr 120 mg PO DAILY 30 Days Qty: 30 RF: 0 metoprolol tartrate 25 mg Tablet 25 mg PO BID@0900,2100 30 Days Qty: 60 RF: 0 Eliquis 5 mg Tablet 5 mg PO BID@0900,2100 30 Days Qty: 60 RF: 0 Lasix 40 mg tablet 40 mg PO DAILY Qty: 30 RF: 0 potassium chloride 20 mEq tablet extended release 20 meq PO DAILY Qty: 30 RF: 0 Continued fluticasone propionate [Flonase Allergy Relief] 50 mcg/actuation spray,suspension 1 spray INTRANASAL DAILY PRN (Reason: Nasal Congestion) RF: 0 atorvastatin 40 mg tablet 80 mg PO DAILY RF: 0 nitroglycerin 0.4 mg tablet, sublingual 0.4 mg SUBLINGUAL Q5M PRN (Reason: chest pain) Qty: 30 RF: 3 Vitamin D3 25 mcg (1,000 unit) Capsule 25 mcg PO DAILY RF: 0 Discharge Orders: Discharge Order (Routine); Ordered 07/29/21 Ordered By: Catalino Sellers Other Ambulatory Orders: [place] cardiac event monitor (Routine) Timeframe: 1 Week Facility: [facility] - Location: Cardiac Diagnostic Laboratory Ordered By: Catalino Sellers DME: [facility] (Order) Location: None Selected Ordered By: Catalino Sellers Referrals: Estee Novak MD [Primary Care Provider] - 7-10 days Charan Montalvo MD [Physician] - 2 weeks Discharge Diet: Cardiac and Low Salt Discharge Activity: Resume usual activity Patient Instructions: Opioid Safety Activity Restrictions/Additional Instructions: New medications have been added to your list. Eliquis which is a blood thinner 5 mg twice daily, Cardizem 120 mg oral daily. Metoprolol 25 mg twice daily, Lasix 40 mg daily. Please continue with fluid restriction up to 1500 cc/day. Continue with low-salt low-fat diet. Discharge Attestations Time Spent in Discharge Care*: greater than 30 min Specific Discharge Activities: educating patient, discussing with pcp/other providers, discussing with case resource manager/social workers/dc planners, documenting/other paperwork and evaluating patient/reviewing data Status at Discharge: Cognitive status at discharge: cognitively intact, Behavioral status at discharge: cooperative, Functional status at discharge: uses cane/walker Overall status at discharge: patient is back to baseline Quality Metrics Clinical Quality Measures During this hospital stay, did patient experience: None Coding Level of Care Code Acute Chg FW DC note Diagnoses Chest pressure R07.89 A-fib I48.19 Atrial fibrillation type: persistent (not longstanding) Aortic stenosis I35.0 Cardiac valve disease etiology: nonrheumatic Diastolic heart failure I50.30 Hypertension I10
--- NOTE | 2021-07-29 14:01 | PC.NURSE ---
Discharge Note Patient discharged to cardiology office via wc accompanied by this nurse and family. Discharge instructions reviewed with patient and/or hospital insurance representative. Meds brought to pt from pharmacy, education provided to pt on meds that she has already received. Pt to go to cardiology office to be fitted for event monitor. Denies any needs, PIV's removed. Ellington cath removed, tolerated well. Belongings/home medications returned.
--- NOTE | 2021-07-29 22:43 | P.PN_ITS ---
Subjective Subjective: Interval history: Rate controlled now after starting patient on Cardizem. Status post angiogram but did not show any significant obstructive coronary artery disease Medications: Reviewed: Yes Medication Review Details: Current Medications Acetaminophen (Acetaminophen 325 Mg Tablet) 650 mg PO Q6H PRN PRN Reason: Mild/Mod Pain Or Temp >/= 101 Last Admin: 07/27/21 03:34 Dose: 650 mg Documented by: Aspirin (Aspirin 81 Mg Ec Tablet) 81 mg PO DAILY [facility] Last Admin: 07/27/21 08:58 Dose: 81 mg Documented by: Atorvastatin Calcium (Atorvastatin 40 Mg Tablet) 80 mg PO DAILY [facility] Last Admin: 07/27/21 08:59 Dose: 80 mg Documented by: Bisacodyl (Bisacodyl 5 Mg Tablet) 10 mg PO DAILY PRN; Protocol PRN Reason: Constipation (see protocol) Dextrose (Dextrose 50% Syringe 50 Ml) 25 ml IVP ONCE PRN; Protocol PRN Reason: hypoglycemia protocol Dextrose (Dextrose 50% Syringe 50 Ml) 50 ml IVP PRN PRN; Protocol PRN Reason: hypoglycemia protocol Enoxaparin Sodium (Enoxaparin 100 Mg/Ml Syringe) 90 mg 1 mg/kg (90 mg) SUBCUT Q12H EVELYNE Famotidine (Famotidine 20 Mg/2 Ml Inj) 20 mg IVP Q12H EVELYNE Furosemide (Furosemide 10 Mg/Ml Sdv 4ml) 40 mg IVP Q12H [facility] Last Admin: 07/27/21 08:58 Dose: 40 mg Documented by: Glucagon (Glucagon 1 Mg/Ml Inj 1 Ml) 1 mg IM ONCE PRN; Protocol PRN Reason: Adult Acute Hypoglycemia Prot. Dextrose (D5w) 500 mls @ 100 mls/hr IV ONCE PRN; Protocol PRN Reason: Adult Acute Hypoglycemia Prot Insulin Human Lispro (Insulin Lispro 100 Unit/1 Ml) 0 unit SUBCUT WM&BEDTIME EVELYNE; Protocol Metoprolol Tartrate (Metoprolol Tartrate 25 Mg Tablet) 25 mg PO BID@0900,2100 [facility] Nitroglycerin (Nitroglycerin 0.4 Mg Sublingual Tablet) 0.4 mg SUBLINGUAL Q5M PRN PRN Reason: chest pain Nitroglycerin (Nitroglycerin 1 Gm/Inch Oint Pkt) 0.5 inch TOPICAL Q6H [facility] Last Admin: 07/27/21 14:54 Dose: Not Given Documented by: Ondansetron HCl (Ondansetron 2 Mg/Ml Sdv 2 Ml) 4 mg IVP Q8H PRN PRN Reason: vomiting, or N/V if npo Vitamin D (Cholecalciferol (Vitamin D3) 1,000 Unit Tablet) 1,000 unit PO DAILY EVELYNE Last Admin: 07/27/21 08:58 Dose: 1,000 unit Documented by: Vitals/I&O/Wt Last Vital Signs Temp 98 F 07/29/21 12:00 Pulse 101 H 07/29/21 12:00 Resp 24 H 07/29/21 12:00 BP 126/70 07/29/21 12:00 Pulse Ox 95 07/29/21 12:00 07/29/21 07/29/21 07/29/21 06:59 14:59 22:59 Intake Total 500 / 1740 200 / 200 Output Total 1100 / 2300 Balance -600 / -560 200 / 200 Weight last 48 hrs Weight 187 lb 9.6 oz Weight 190 lb Physical Exam Narrative: EXAM NARRATIVE: GENERAL: Patient is alert, awake and oriented x3. NECK: No jugular vein distension. HEENT: No cyanosis. No icterus. No pallor. HEART: Irregularly irregular S1 and S2. No murmur, rub or gallop. LUNGS: Clear to auscultate bilaterally. ABDOMEN: Soft, nontender and nondistended. Positive bowel sounds. No guarding, rebound or tenderness. CENTRAL NERVOUS SYSTEM: Grossly nonfocal. EXTREMITIES: Lower extremities without edema bilaterally. Const: COMMON NORMALS: alert Resp: COMMON NORMALS: clear to auscultation bilaterally AUSCULTATION: clear to auscultation bilaterally Neuro: SENSORIUM/ORIENTATION: Yes alert Urinary Catheter Management^: [place]: Cath Placed During This Visit: yes, but has since been removed by the nurse Reason for Continuing Indwelling Catheter: Decision to DC Catheter Urinary Catheter Date of Insertion: 07/26/21 Urinary Catheter Time of Insertion: 16:00 Date Urinary Catheter Removed: 07/29/21 Time Urinary Catheter Discontinued: 13:15 Data : 07/29/21 04:29 07/29/21 04:29 A&P Assessment and plan (1) Chest pressure: Patient had negative angiogram chest pressure was most likely due to A. fib with RVR currently heart rate is under control she is feeling much better Status: Acute (2) Heart failure: Well compensated. Continue current regimen E Status: Deleted Qualifiers: Heart failure type: diastolic Heart failure chronicity: acute Qualified Code(s): I50.31 - Acute diastolic (congestive) heart failure (3) A-fib: Patient heart rate is under control continue current regimen continue Cardizem and metoprolol. Continue anticoagulation. Advised 21 days event mo nitor as an outpatient to rule out intermittent heart block or tachybradycardia Status: Acute Qualifiers: Atrial fibrillation type: persistent (not longstanding) Qualified Code(s): I48.19 - Other persistent atrial fibrillation (4) Aortic stenosis: Mild aortic stenosis continue to monitor Status: Acute Qualifiers: Cardiac valve disease etiology: nonrheumatic Qualified Code(s): I35.0 - Nonrheumatic aortic (valve) stenosis (5) Transaminitis: Status: Acute (6) Essential hypertension: Well-controlled. 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 Please feel free to call with questions or concerns. Attestations Medical Necessity Statement*: Patient require continuation hospitalization for above defined care Coding Level of Care Code Established Pt Acute [place] for [facility] Patient Type Established History Detailed Exam Detailed Medical Decision Making Moderate Complexity Diagnoses Chest pressure R07.89 Heart failure I50.31 Heart failure type: diastolic Heart failure chronicity: acute A-fib I48.19 Atrial fibrillation type: persistent (not longstanding) Aortic stenosis I35.0 Cardiac valve disease etiology: nonrheumatic Transaminitis R74.01 Essential hypertension I10 Hyperlipidemia E78.49 Hyperlipidemia type: other hyperlipidemia
== END 2021-07-29 14:14 | disposition home or self-care (01) | DRG 286 ==
LOC: ER 11:15 → CSU 14:29
PROVIDERS: Internal Medicine Cardiovascular Disease; Admitting Provider Internal Medicine; Emergency Provider Emergency Medicine; PCP Pediatrics; Visit Provider Student in an Organized Health Care Education/Training Program
PROC: 4A023N7 Measurement of Cardiac Sampling and Pressure, Left Heart, Percutaneous Approach (ICD-10-PCS; principal; 2021-07-28 08:30)
DX: I11.0 Hypertensive heart disease with heart failure (principal); I50.31 Acute diastolic (congestive) heart failure; I48.19 Other persistent atrial fibrillation; I45.2 Bifascicular block; I25.10 Atherosclerotic heart disease of native coronary artery without angina pectoris; E78.49 Other hyperlipidemia; F41.9 Anxiety disorder, unspecified; E66.9 Obesity, unspecified; Z68.37 Body mass index [BMI] 37.0-37.9, adult; I35.0 Nonrheumatic aortic (valve) stenosis; I25.2 Old myocardial infarction
CPT/HCPCS: 36415; 36416; 51702; 71045; 71275; 80048; 80053; 80061; 82962; 83036; 83690; 83735; 83880; 84443; 84484; 85025; 85378; 85610; 85730; 87426; 93005; 93306; 93452; 96365; 96367; 96372; 96375; 97161; 99285; C1769; C1887; C1894; J1644; J1650; J1940; J2250; J2405; J3010; J3490; J7030; Q0163; Q9967

== ENCOUNTER → 2021-08-12 13:46 | Outpatient (BNVA) | payer MEDICARE, OTHER, SELFPAY | PROVIDERS: PCP Pediatrics; Visit Provider Nurse Practitioner Family | DX: I48.19 Other persistent atrial fibrillation (principal) | CPT/HCPCS: 80048 ==

== ENCOUNTER 2021-12-08 10:34 | Emergency (ER) | payer MEDICARE, OTHER, SELFPAY ==
[2021-12-08 10:43] VITALS: BP 114/71; PULSE 87; RESP 18; TEMP 36.7; O2SAT 95; BMI 36.3
--- NOTE | 2021-12-08 10:58 | ED_ITS ---
HPI - SOB/Dyspnea General: Chief Complaint: Shortness of Breath/Dyspnea Stated Complaint: SOB, HEART RACING Time Seen by Provider: 12/08/21 10:57 History of Present Illness: HPI Narrative: 81-year-old female with history of CHF presents with shortness of breath that has been progressing for months. 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 Denies any chest pain. Denies lower extremity pain or swelling. Denies fevers chills or cough. Review of Systems Narrative: - CONSTITUTIONAL: Denies weight loss, fever and chills. - HEENT: Denies changes in vision and hearing. - RESPIRATORY: As above - CV: Denies palpitations and CP. - GI: Denies abdominal pain, nausea, vomiting and diarrhea. - : Denies dysuria and urinary frequency. - MSK: Denies myalgia and joint pain. - SKIN: Denies rash and pruritus. - NEUROLOGICAL: Denies headache, weakness, numbness and syncope. - PSYCHIATRIC: Denies suicidal ideation PFSH ED PFSH: Medical History Abnormal stress test Anxiety Aortic stenosis Chest pressure Diastolic heart failure Essential hypertension Hyperlipidemia Hypertension Obesity Osteopenia Surgical History H/O right wrist surgery S/P hysterectomy Family History Mother Cancer Father Cancer Brother Cancer Social History Alcohol intake: current Alcohol intake frequency: holidays/special occasions only Household members: spouse Marital status: service: No Current occupational status: retired Physical Exam Narrative: EXAM NARRATIVE: - GENERAL: Alert and oriented x 3. No acute distress. Well-nourished. - EYES: EOMI. Anicteric. - HENT: Atraumatic, no C-spine tenderness. Moist mucous membranes. No scleral icterus. No cervical lymphadenopathy. - LUNGS: Clear to auscultation bilaterally. No accessory muscle use. Equal lung sounds bilaterally. No respiratory distress. - CARDIOVASCULAR: Regular rate and rhythm. No murmur. No JVD. - ABDOMEN: Soft, non-tender and non-distended. Negative CVA tenderness bilaterally, no rebound or guarding, negative Ya sign. No palpable masses. - EXTREMITIES: No edema. Non-tender. - SKIN: No rashes or lesions. Warm. - NEUROLOGIC: No meningismus or focal neurological deficits. CN II-XII grossly intact. - PSYCHIATRIC: Cooperative. Appropriate mood and affect. Course Vital Signs: Vital signs: Vital Signs Temperature 98.1 F 12/08/21 10:43 Pulse Rate 93 12/08/21 15:59 Respiratory Rate 16 12/08/21 15:59 Blood Pressure 118/86 12/08/21 15:59 Pulse Oximetry 92 12/08/21 15:59 MDM - SOB/Dyspnea Medical Decision Making 81-year-old female presents with shortness of breath. States it has been p rogressive. She saturating well on room air. Covid swab is negative. EKG and troponins do not reveal any sign of acute ischemia or acute abnormality. BNP is elevated. Suspect CHF exacerbation. IV Lasix provided and she was instructed to double her home Lasix dose for next 3 days and follow-up with primary care. Referral to social work was also provided to assist patient in finding a new car diologist as she requests. D-dimer is elevated but CTA does not reveal any sign of PE. However does have pleural effusions consistent with CHF. At this time I believe patient would be safe for discharge and outpatient follow-up. Return precautions provided. Plan was reviewed with the patient who expressed understanding. Questions answered. Patient will follow up with PCP. Patient discharged in stable condition. Lab Data : 12/08/21 11:15 12/08/21 11:15 Labs/Radiology: Radiology Impressions Chest X-Ray 12/08/21 11:05 IMPRESSION: No acute findings. Chest CTA 12/08/21 13:28 IMPRESSION: 1. Proximal main pulmonary arteries are normal. No evidence of pulmonary embolus. 2. Slightly ectatic ascending thoracic aorta measuring 3.7 cm is unchanged. 3. Small RIGHT greater than LEFT pleural effusions. Slight bibasilar atelectasis. 4. Prominent anterior mediastinal and paratracheal lymph nodes nonspecific but may be reactive. 5. Prior cholecystectomy. 6. Small esophageal hiatal hernia. Laboratory Results WBC 7.0 10^3/uL (4.0-10.0) 12/08/21 11:15 RBC 3.75 10^6/uL (4.1-5.3) L 12/08/21 11:15 Hgb 10.8 g/dL (11.5-15.3) L 12/08/21 11:15 Hct 33.9 % (37.0-47.0) L 12/08/21 11:15 MCV 90.4 fl (81-99) 12/08/21 11:15 MCH 28.8 pg (28.0-34.0) 12/08/21 11:15 MCHC 31.9 g/dL (30.0-36.0) 12/08/21 11:15 RDW 16.3 % (12.1-15.1) H 12/08/21 11:15 Plt Count 180 10^3/cmm (130-400) 12/08/21 11:15 MPV 11.0 fL (7.4-10.4) H 12/08/21 11:15 Neut % (Auto) 58.9 % 12/08/21 11:15 Lymph % (Auto) 29.2 % 12/08/21 11:15 Thomas % (Auto) 9.3 % 12/08/21 11:15 Eos % (Auto) 1.4 % 12/08/21 11:15 Baso % (Auto) 0.9 % 12/08/21 11:15 Neut # (Auto) 4.14 10^3/uL (1.8-7.7) 12/08/21 11:15 Lymph # (Auto) 2.1 10^3/uL (0.8-4.8) 12/08/21 11:15 Thomas # (Auto) 0.7 10^3/uL (0.2-0.9) 12/08/21 11:15 Eos # (Auto) 0.1 10^3/uL (0.0-0.8) 12/08/21 11:15 Baso # (Auto) 0.1 10^3/uL (0.0-0.1) 12/08/21 11:15 Nucleated RBC % (auto) 0 % 12/08/21 11:15 Nucleated RBCs # 0.0 /100WBC 12/08/21 11:15 D-Dimer 0.83 ug/mIFEU (0-0.59) H 12/08/21 11:53 Sodium 138 mmol/L (136-145) 12/08/21 11:15 Potassium 4.8 mmol/L (3.5-5.1) 12/08/21 11:15 Chloride 106 mmol/L (98-107) 12/08/21 11:15 Carbon Dioxide 22 mmol/L (22-29) 12/08/21 11:15 Anion Gap 14.8 (5-19) 12/08/21 11:15 BUN 16 mg/dL (8-23) 12/08/21 11:15 Creatinine 0.6 mg/dL (0.5-0.9) 12/08/21 11:15 GFR Calculation Not Reportable 12/08/21 11:15 Glucose 95 mg/dL (65-115) 12/08/21 11:15 Calculated Osmolality 287 mOsm/kg (285-295) 12/08/21 11:15 Calcium 8.2 mg/dL (8.5-10.5) L 12/08/21 11:15 Total Bilirubin 0.5 mg/dL (0.15-1.2) 12/08/21 11:15 AST 45 U/L (0-32) H 12/08/21 11:15 ALT 40 U/L (0-33) H 12/08/21 11:15 Alkaline Phosphatase 119 IU/L (35-105) H 12/08/21 11:15 Troponin T Baseline 16 ng/L (0-10) H 12/08/21 11:15 Troponin T 120 Minute 14.86 ng/L (0-10) H 12/08/21 13:15 Delta Troponin T -1.14 ABS# (0-10) L 12/08/21 13:15 NT-Pro-B Natriuret Pep 1870 pg/mL (0-450) H 12/08/21 11:15 Total Protein 6.4 g/dL (6.6-8.7) L 12/08/21 11:15 Albumin 4.1 g/dL (3.5-5.2) 12/08/21 11:15 Globulin 2.3 g/dL (1.3-4.6) 12/08/21 11:15 SARS-CoV-2 Ag (Rapid) Negative (Negative) 12/08/21 11:24 EKG Data EKG 1: Other EKG Comments: A. fib with a controlled rate of 87, no sign of acute ischemia or other acute abnormality. Discharge Plan Discharge Patient Disposition: Home Clinical Impression: Acute exacerbation of CHF (congestive heart failure) Condition: Stable Prescriptions: No Action fluticasone propionate [Flonase Allergy Relief] 50 mcg/actuation spray,suspension 1 spray INTRANASAL DAILY PRN (Reason: Nasal Congestion) 0RF omeprazole 20 mg capsule,delayed release(DR/EC) 20 mg PO DAILY 0RF atorvastatin 80 mg tablet 80 mg PO DAILY Qty: 90 3RF diltiazem HCl 180 mg capsule,extended release 24hr 180 mg PO DAILY Qty: 90 3RF Lasix 40 mg tablet 40 mg PO DAILY Qty: 90 3RF metoprolol tartrate 25 mg tablet 12.5 mg PO BID@0900,2100 Qty: 90 3RF nitroglycerin 0.4 mg tablet, sublingual 0.4 mg SUBLINGUAL Q5M PRN (Reason: chest pain) Qty: 30 3RF Rx Instructions: do not exceed 3 doses per episode potassium chloride 20 mEq tablet extended release 20 meq PO DAILY Qty: 90 3RF Vitamin D3 25 mcg (1,000 unit) Capsule 25 mcg PO DAILY 0RF Discharge Orders: Discharge ED (Routine); Ordered 12/08/21 Ordered By: Jay Grace Referrals: Estee Novak MD [Primary Care Provider] - 1-3 days Patient Instructions: Heart Failure (ED), Opioid Safety Coding Level of Care Code ED Form Setter for Luisa Medley
--- NOTE | 2021-12-08 11:05 | XRR_ITS ---
PROCEDURE INFORMATION: Exam: XR Chest Exam date and time: 12/08/2021 11:05 AM Age: 81 years old Clinical indication: Shortness of breath; Additional info: SOB TECHNIQUE: Imaging protocol: XR of the chest. Views: 1 view. COMPARISON: CR XR chest 1V portable [id number] 07/26/2021 11:23 AM FINDINGS: Lungs: Unremarkable. No consolidation. Pleural spaces: Unremarkable. No pleural effusion. No pneumothorax. Heart/Mediastinum: Unremarkable. No cardiomegaly. Bones/joints: Unremarkable. XR/XR chest 1V portable [id number] IMPRESSION: No acute findings.
--- NOTE | 2021-12-08 11:05 | ECG_ITS ---
[facility] Test Date: 2021-12-08 Pat Name: Radha Samuel Department: Room: Gender: Female Global Implementation Manager: : 1940 Requested By: Jay Grace Order Number: [id number] Vidya MD: Manda Harrington M.D. Measurements Intervals [place] Rate: 87 P: MN: QRS: 144 QRSD: 136 T: 16 QT: 433 QTc: 524 Interpretive Statements ATRIAL FIBRILLATION RIGHT AXIS DEVIATION [QRS AXIS > 100] INTRAVENTRICULAR CONDUCTION DELAY [130+ ms QRS DURATION] POSSIBLE ANTERIOR MYOCARDIAL INFARCTION , OF INDETERMINATE AGE [30 ms Q WAVE IN V3/V4, OR R < 0.2 mV IN V4] Compared to ECG 07/27/2021 09:39:56 Right-axis deviation now present Myocardial infarct finding now present Electronically Signed On 12-09-2021 5:39:09 SPECIALTY PERSON by Manda Harrington M.D. [id number]
[2021-12-08 11:22] VITALS: BP 111/69; PULSE 75; RESP 28; O2SAT 95
[2021-12-08 11:34] LABS: Basophils # 0.1 10^3/uL (0.0-0.1); Basophils % 0.9 %; Eosinophils # 0.1 10^3/uL (0.0-0.8); Eosinophils % 1.4 %; Hematocrit 33.9 % (37.0-47.0); Hemoglobin 10.8 g/dL (11.5-15.3); Lymphocytes # 2.1 10^3/uL (0.8-4.8); Lymphocytes % 29.2 %; Mean Corpuscular HGB Conc 31.9 g/dL (30.0-36.0); Mean Corpuscular Hemoglobin 28.8 pg (28.0-34.0); Mean Corpuscular Volume 90.4 fl (81-99); Monocytes # 0.7 10^3/uL (0.2-0.9); Monocytes % 9.3 %; Neutrophils # 4.14 10^3/uL (1.8-7.7); Neutrophils % 58.9 %; Nucleated Red Blood Cells % 0 %; Platelet Count 180 10^3/cmm (130-400); Red Blood Count 3.75 10^6/uL (4.1-5.3); Red Cell Distribution Width 16.3 % (12.1-15.1)
[2021-12-08 12:01] LABS: Troponin(5th) Baseline 16 ng/L (0-10)
[2021-12-08 12:06] LABS: SARS Covid-2 Antigen Negative (Negative)
[2021-12-08 12:09] LABS: Alanine Aminotransferase 40 U/L (0-33); Albumin Level 4.1 g/dL (3.5-5.2); Alkaline Phosphatase 119 IU/L (35-105); Anion Gap 14.8 (5-19); Aspartate Amino Transferase 45 U/L (0-32); Blood Urea Nitrogen 16 mg/dL (8-23); Calcium 8.2 mg/dL (8.5-10.5); Carbon Dioxide 22 mmol/L (22-29); Chloride 106 mmol/L (98-107); Globulin 2.3 g/dL (1.3-4.6); Glucose 95 mg/dL (65-115); NT Pro B Type Natriuretic Pept 1870 pg/mL (0-450); Osmolality Calculated 287 mOsm/kg (285-295); Potassium 4.8 mmol/L (3.5-5.1); Sodium 138 mmol/L (136-145); Total Bilirubin 0.5 mg/dL (0.15-1.2); Total Protein 6.4 g/dL (6.6-8.7)
[2021-12-08 12:13] LABS: D Dimer 0.83 ug/mIFEU (0-0.59)
[2021-12-08 12:32] VITALS: BP 119/68; PULSE 91; RESP 16; O2SAT 95
--- NOTE | 2021-12-08 13:05 | ECG_ITS ---
[facility] Test Date: 2021-12-08 Pat Name: Radha Samuel Department: Room: Gender: Female Lathe Setup Operator: : 1940 Requested By: Jay Grace Order Number: [id number] Vidya MD: Manda Harrington M.D. Measurements Intervals [place] Rate: 84 P: GA: QRS: 72 QRSD: 113 T: -50 QT: 422 QTc: 499 Interpretive Statements ATRIAL FIBRILLATION LOW QRS VOLTAGE IN PRECORDIAL LEADS [QRS DEFLECTION < 1.0 mV IN CHEST LEADS] INCOMPLETE RIGHT BUNDLE BRANCH BLOCK SEPTAL MYOCARDIAL INFARCTION , OF INDETERMINATE AGE MODERATE T-WAVE ABNORMALITY, CONSIDER ANTEROLATERAL ISCHEMIA MODERATE T-WAVE ABNORMALITY, CONSIDER INFERIOR ISCHEMIA Compared to ECG 07/27/2021 09:39:56 Incomplete right bundle-branch block now present Myocardial infarct finding now present T-wave abnormality now present Possible ischemia now present Intraventricular conduction delay no longer present Electronically Signed On 12-09-2021 5:50:59 LIVESTOCK FARMWORKER by Manda Harrington M.D. [id number]
--- NOTE | 2021-12-08 13:28 | CT_ITS ---
WS: [id number] CTA OF THE CHEST WITH PULMONARY EMBOLISM PROTOCOL TECHNIQUE: High-resolution contrast enhanced CTA of the chest with coronal and sagittal reformatted i mages with pulmonary embolism protocol. MIP images are also reviewed. CLINICAL INFORMATION: pe COMPARISON: July 26, 2021 DLP: 584.[address] scans at [facility] use at least one of these dose optimization techniques: automated e xposure control; mA and/or kV adjustment per patient size (includes targeted exams where dose is matc hed to clinical indication); or iterative reconstruction. FINDINGS: Proximal main pulmonary arteries are normal. Normal segmental and subsegmental pulmonary arteries. No evidence of pulmonary embolism. Slightly ectatic ascending thoracic aorta is unchanged. Coronary pao cification. Small RIGHT greater than LEFT pleural effusions. Slight bibasilar atelectasis. Mild chron ic emphysematous changes. Interstitial edema in the lung bases. Several prominent anterior mediastina l and peribronchial lymph nodes likely reactive. A few prominent retrocrural lymph nodes in the upper abdomen also likely reactive. Cardiomegaly. Cholecystectomy. Small esophageal hiatal hernia. Adrenal glands are normal. No axillary lymphadenopathy. Mild thoracic kyphosis with hypertrophic changes. CT/CT angio chest PE protcl [id number] IMPRESSION: 1. Proximal main pulmonary arteries are normal. No evidence of pulmonary embol us. 2. Slightly ectatic ascending thoracic aorta measuring 3.7 cm is unchanged. 3. Small RIGHT greater than LEFT pleural effusions. Slight bibasilar atelectas is. 4. Prominent anterior mediastinal and paratracheal lymph nodes nonspecific but may be reactive. 5. Prior cholecystectomy. 6. Small esophageal hiatal hernia.
[2021-12-08 13:43] LABS: Troponin 5 2HR 14.86 ng/L (0-10)
[2021-12-08 13:48] LABS: Troponin 5 2HR Delta -1.14 ABS# (0-10)
--- NOTE | 2021-12-08 14:02 | PC.NURSE ---
EKG DONE AT 1355
[2021-12-08 14:05] VITALS: BP 121/105; PULSE 87; RESP 17; O2SAT 92
[2021-12-08] MEDS: FUROsemide 10 mg/mL SDV 4mL 40 MG IVP (14:05)
[2021-12-08] MEDS: iohexol 350 mg/mL 100 mL Btl IV (15:04)
[2021-12-08 15:59] VITALS: BP 118/86; PULSE 93; RESP 16; O2SAT 92
--- NOTE | 2021-12-09 09:53 | DCPLANNER ---
manager spring had message to speak with patient about getting a new hand shaker. manager spring called phone number [phone] and it was just a busy signal. manager spring called phone number [phone] and was unable to speak with patient or any family member, or leave a voicemail for patient.
== END 2021-12-08 16:31 | disposition home or self-care (01) ==
PROVIDERS: Emergency Provider Emergency Medicine; PCP Pediatrics
DX: I11.0 Hypertensive heart disease with heart failure (principal); I50.9 Heart failure, unspecified; E78.5 Hyperlipidemia, unspecified; Z20.822 Contact with and (suspected) exposure to COVID-19
CPT/HCPCS: 36415; 71045; 71275; 80053; 83880; 84484; 85025; 85378; 87426; 93005; 96374; 99284; J1940; Q9967

== ENCOUNTER → 2022-02-24 15:04 | Outpatient (BNVA) | payer MEDICARE, OTHER, SELFPAY | PROVIDERS: PCP Pediatrics; Visit Provider Internal Medicine Cardiovascular Disease | DX: I11.0 Hypertensive heart disease with heart failure (principal); I50.30 Unspecified diastolic (congestive) heart failure; I48.19 Other persistent atrial fibrillation; Z79.01 Long term (current) use of anticoagulants | CPT/HCPCS: 99214 ==

== ENCOUNTER → 2023-04-26 13:09 | Outpatient (BNVA) | payer MEDICARE, OTHER, SELFPAY | PROVIDERS: PCP Pediatrics; Visit Provider Nurse Practitioner Family | DX: I48.19 Other persistent atrial fibrillation (principal); I35.0 Nonrheumatic aortic (valve) stenosis; I11.0 Hypertensive heart disease with heart failure; I50.30 Unspecified diastolic (congestive) heart failure; Z79.01 Long term (current) use of anticoagulants | CPT/HCPCS: 99214 ==

== ENCOUNTER 2023-05-01 01:40 | Inpatient (IN) | payer MEDICARE, OTHER, SELFPAY ==
[2023-05-01] VITALS (28 sets, daily range): BP systolic 108–170; BP diastolic 62–118; PULSE 68–135; RESP 15–30; TEMP 36.6–37.1; O2SAT 89–96; BMI 37.0
--- NOTE | 2023-05-01 02:40 | ECG_ITS ---
[facility] Test Date: 2023-05-01 Pat Name: Radha Samuel Department: Room: [facility] Gender: Female Land Checker: : 1940 Requested By: Aashish Murillo Order Number: [id number] Vidya MD: Manda Harrington M.D. Measurements Intervals [place] Rate: 73 P: 0 [place]: 0 QRS: -77 QRSD: 141 T: 48 QT: 433 QTc: 478 Interpretive Statements ATRIAL FIBRILLATION LEFT AXIS DEVIATION [QRS AXIS < -30] INTRAVENTRICULAR CONDUCTION DELAY [130+ ms QRS DURATION] Compared to ECG 12/08/2021 13:53:18 Left-axis deviation now present Intraventricular conduction delay now present Incomplete right bundle-branch block no longer present Myocardial infarct finding no longer present T-wave abnormality no longer present Possible ischemia no longer present Electronically Signed On 05-01-2023 11:22:45 CDT by Manda Harrington M.D. [id number]
--- NOTE | 2023-05-01 02:40 | P.HP_ITS ---
Providers/Chief Complaint Admitting Physician: Aashish Daugherty MD Primary Care Provider: Estee Novak MD Chief Complaint: syncope /afib History of Present Illness Radha Samuel is a 83 year old female who was transferred from [facility]. She had received a phone call, regarding her cardiac rehabilitation specialist that she had a significant cardiac pause. The patient reports she has felt bad for at least a month. She was originally seen at [facility] April 12 after a fainting episode. At that point a cardiac rehabilitation specialist was arranged, and she had it placed . She states over the last year she has had approximately 10 fainting episodes. Usually it is difficult to know when these are going to occur. She reports she often feels tired during the day. She states her chest hurts a little bit, but may be related to her neck and chest with sewing activities. She believes she may have had a syncopal episode tonight. No recent fever, cough. Denies any nausea or vomiting. Last took her metoprolol last night, Eliquis last night. Review of Systems General: Reports: 10 or more systems reviewed and unremarkable except in HPI and below Const: Reports: fatigue; Denies: fever(s) Card: Reports: chest pain and irregular heart rhythm Resp: Denies: dyspnea GI: Denies: abdominal pain, nausea, vomiting, hematochezia or melena Medications/Allergies Home Medications Medication Instructions Recorded Confirmed Last Taken Type fluticasone propionate 50 1 spray intranasal DAILY PRN Nasal 01/14/21 04/26/23 Unknown History mcg/actuation nasal Congestion spray,suspension (Flonase Allergy Relief) acetaminophen 650 mg 650 mg PO Q12H PRN 02/24/22 04/26/23 Unknown History tablet,extended release (Arthritis Pain Relief (acetaminophen) ER) fexofenadine 180 mg tablet 180 mg PO DAILY 02/24/22 04/26/23 Unknown History (Ladonna Allergy) methocarbamol 500 mg tablet 500 mg PO TID PRN 08/19/22 04/26/23 Unknown History nitroglycerin 0.4 mg sublingual 0.4 mg sublingual Q5M PRN chest 11/11/22 04/26/23 Unknown Rx tablet pain #30 tabs apixaban 5 mg tablet (Eliquis) 5 mg PO BID #180 tabs 03/17/23 04/26/23 Unknown Rx atorvastatin 80 mg tablet 80 mg PO DAILY #90 tabs 03/17/23 04/26/23 Unknown Rx cholecalciferol (vitamin D3) 25 25 mcg PO BID 03/17/23 04/26/23 Unknown History mcg (1,000 unit) capsule (Vitamin D3) furosemide 40 mg tablet (Lasix) 40 mg PO DAILY #90 tabs 03/17/23 04/26/23 Unknown Rx metoprolol tartrate 50 mg tablet 50 mg PO BID@0900,2100 #180 tabs 03/17/23 04/26/23 Unknown Rx potassium chloride 20 mEq 20 meq PO DAILY #90 tabs 03/17/23 04/26/23 Unknown Rx tablet,extended release Allergies Allergy/AdvReac Type Severity Reaction Status Date / Time morphine Allergy Severe hallucinati Verified 04/26/23 09:00 ons PFSH Acute PFSH: Medical History Abnormal stress test Anxiety Aortic stenosis Chest pressure Diastolic heart failure Essential hypertension Hyperlipidemia Hypertension Obesity Osteopenia Surgical History H/O right wrist surgery S/P hysterectomy Family History Mother Cancer Father Cancer Brother Cancer Social History Smoking and tobacco status: never smoked Alcohol intake: current Alcohol intake frequency: holidays/special occasions only Household members: spouse Marital status: service: No Current occupational status: retired Physical Exam Narrative: General exam is a white female, no distress HEENT: Atraumatic normocephalic. Pupils equally round. Oropharynx clear. Neck is supple no lymphadenopathy thyromegaly Cardiovascular regular rate and rhythm with a 2/6 systolic murmur Lungs clear no wheezing or crackles Abdomen is soft with positive bowel sounds. No obvious organomegaly exam is deferred Extremities no cyanosis, or edema, cap refill brisk Skin no rash Neuro no obvious focal deficits. Data Other Labs: History of coronary angiogram 07/30. No significant disease at that time. Echo 07/30 demonstrates normal EF, LVH, mild aortic valve stenosis hall monitor report demonstrates several pauses, tonight, with 1 pause of 12 seconds Laboratory at [facility] demonstrated white blood cell count of 10.2, hemoglobin of 12.6, platelet count of 191. Sodium 139, potassium 4.4, chloride 103, bicarb 25, BUN 17, creatinine 0.8, glucose 156, LFTs normal Magnesium 2.0 Troponin undetectable INR 1.5 Chest x-ray no infiltrate, postsurgical right humerus head EKG demonstrated atrial fibrillation, rate of 106, intraventricular conduction delay, indeterminate axis A&P Assessment and plan (1) Arrhythmia: She went to the emergency department secondary to call regarding her cardiac rehabilitation specialist showing significant arrhythmia. She was found to have several pauses, on that was 12 seconds. She reports she has had syncopal episodes over the last year, as many as 10. She believes she may have had a syncopal episode tonight for several seconds. I am concerned she may have tachycardia-bradycardia syndrome with her atrial fibrillation Secondary to significant pauses, hold her metoprolol Monitor in ICU Cardiology consultation, may need pacemaker Hold Eliquis Consider initiation of anticoagulation tomorrow morning. This will also depend on procedural timing. Note that she took her Eliquis tonight, therefore currently is fully anticoagulated Serial troponins Secondary to past history of aortic stenosis repeat echocardiogram Note that she has had an angiogram in 2020 that did not demonstrate any significant disease CBC, CMP, magnesium, TSH here Hydrate with IV fluids. (2) A-fib: See findings above Qualifiers: Atrial fibrillation type: persistent (not longstanding) Qualified Code(s): I48.19 - Other persistent atrial fibrillation Plan Hyperlipidemia, continue home medication History of hypertension. Holding metoprolol currently. Initiate amlodipine 5 mg daily Multiple other medical problems as outlined in past medical history Full code SCDs for DVT prophylaxis. Received apixaban already tonight so fully anticoagulated. May need anticoagulation added tomorrow but will depend if any procedures are going to occur. Attestations Medical Necessity Statement*: Will need greater than 2 midnight stay for evaluation and treatment of arrhyt hmia, syncope Diagnoses Arrhythmia I49.9 A-fib I48.19 Atrial fibrillation type: persistent (not longstanding) Time Spent (min) 46
--- NOTE | 2023-05-01 02:46 | USCV_ITS ---
Radha Samuel Age: 83 Gender: F : 1940 Exam Date: 05/01/2023 10:17 Ordering Phys: Aashish Daugherty MD Technologist: Alan Rand [place] [facility] [place]: arrthythmia BP: 119 / 87 HR: 73 Rhythm: Sinus Technical Quality: Suboptimal MEASUREMENTS (Male / Female) Normal Values 2D ECHO LV Diastolic Diameter PLAX 3.7 cm 4.2 - 5.9 / 3.9 - 5.3 cm LV Systolic Diameter PLAX 2.9 cm IVS Diastolic Thickness 1.2 cm 0.6 - 1.0 / 0.6 - 0.9 cm IVS Systolic Thickness 1.3 cm LVPW Diastolic Thickness 1.2 cm 0.6 - 1.0 / 0.6 - 0.9 cm LVPW Systolic Thickness 1.3 cm LVOT Diameter 2.0 cm LV Ejection Fraction 2D Teich 46.2 % LV Ejection Fraction MOD 2C 54.3 % LV Ejection Fraction 2C AL 55.3 % LA Diameter 3.8 cm Aorta at Sinotubular Diameter 2.9 cm IVC Diameter 2.4 cm M-MODE Aortic Annulus Diameter 3.6 cm LA Ao Ratio MM 1.1 MV E Point Septal Separation 1.6 cm DOPPLER AV Peak Velocity 309.3 cm/s LVOT Peak Velocity 94.0 cm/s AV Area Cont Eq vti 0.9 cm squared AV Area Cont Eq pk 1.0 cm squared MV Area PHT 6.7 cm squared Mitral E to A Ratio 2.3 MV E' Velocity 72.5 cm/s Mitral E to MV E' Ratio 14.4 Mitral E to LV E' Lateral Ratio 14.0 Mitral E to LV E' Septal Ratio 15.0 TR Peak Velocity 121.0 cm/s TR Peak Gradient 5.9 mmHg TV Peak E Velocity 74.0 cm/s Right Atrial Pressure 3.0 mmHg Pulmonary Artery Systolic Pressu 8.9 mmHg RV Acceleration Time 0.1 s FINDINGS Left Ventricle Normal left ventricular size and increased wall thickness. Moderately decreased left ventricular systolic function Left ventricular ejection fraction is estimated at 40 %. Moderate global hypokinesis. Abnormal septal motion consistent with conduction abnormality. Rhythm precludes evaluation of diastolic function. Right Ventricle Normal right ventricular size and systolic function. Right ventricular systolic pressure 8.9 mmHg. Right Atrium Moderately increased right atrial size. Left Atrium Severely increased left atrial size. Mitral Valve Severe mitral annular calcification. Thickened mitral valve. No mitral valve stenosis. No significant mitral valve regurgitation. Aortic Valve Thickened and calcified aortic valve. Moderate aortic valve stenosis, peak velocity of 3 m/s, peak gradient of 39 mm Hg, mean gradient 21 mmHg, RORO 0.9 cm squared. DVI of 0.31. No aortic valve regurgitation. Tricuspid Valve Structurally normal tricuspid valve. Pulmonic Valve Pulmonic valve not well visualized. Pericardium No pericardial effusion. Aorta Normal size aortic root and proximal ascending aorta. IVC Inferior vena cava not visualized. CONCLUSIONS 1. This is a technically difficult study. 2. Normal left ventricular size and increased wall thickness. Moderately decreased left ventricular systolic function Left ventricular ejection fraction is estimated at 40 %. Moderate global hypokinesis. Abnormal septal motion consistent with conduction abnormality. 3. Moderate aortic valve stenosis, peak velocity of 3 m/s, peak gradient of 39 mm Hg, mean gradient 21 mmHg, RORO 0.9 cm squared. DVI of 0.31. 4. When compared to other study dated 07/27/21. left ventricular systolic function may have decreased. Repaet study with echo contrast is recommended. Manda Harrington MD (Electronically Signed) Final Date: 02 May 2023 05:35 S
[2023-05-01 02:57] LABS: Basophils % 0.4 %; Eosinophils # 0.1 10^3/uL (0.0-0.8); Eosinophils % 0.8 %; Hematocrit 37.3 % (37.0-47.0); Hemoglobin 11.9 g/dL (11.5-15.3); Lymphocytes % 32.8 %; Mean Corpuscular HGB Conc 31.9 g/dL (30.0-36.0); Mean Corpuscular Hemoglobin 29.1 pg (28.0-34.0); Mean Corpuscular Volume 91.2 fl (81-99); Mean Platelet Volume 11.2 fL (7.4-10.4); Monocytes # 0.8 10^3/uL (0.2-0.9); Monocytes % 8.4 %; Neutrophils # 5.25 10^3/uL (1.8-7.7); Neutrophils % 57.2 %; Nucleated Red Blood Cells % 0 %; Platelet Count 182 10^3/cmm (130-400); Red Blood Count 4.09 10^6/uL (4.1-5.3); Red Cell Distribution Width 14.4 % (12.1-15.1); White Blood Count 9.2 10^3/uL (4.0-10.0)
[2023-05-01 03:18] LABS: Troponin(5th) Baseline 15 ng/L (0-10)
[2023-05-01 03:20] LABS: Alanine Aminotransferase 15 U/L (0-33); Albumin Level 4.1 g/dL (3.5-5.2); Alkaline Phosphatase 91 U/L (35-105); Anion Gap 13.9 (5-19); Aspartate Amino Transferase 17 U/L (0-32); Blood Urea Nitrogen 14 mg/dL (8-23); Calcium 8.6 mg/dL (8.5-10.5); Carbon Dioxide 25 mmol/L (22-29); Chloride 107 mmol/L (98-107); Globulin 2.2 g/dL (1.3-4.6); Glucose 105 mg/dL (65-115); Magnesium 2.1 mg/dL (1.7-2.3); Osmolality Calculated 293 mOsm/kg (285-295); Potassium 4.9 mmol/L (3.5-5.1); Sodium 141 mmol/L (136-145); Total Bilirubin 0.4 mg/dL (0.15-1.2); Total Protein 6.3 g/dL (6.6-8.7)
[2023-05-01 03:26] LABS: Thyroid Stimulating Hormone 2.55 uIU/mL (0.27-4.20)
[2023-05-01] MEDS: sodium chloride 0.9% 1,000 ML 50 ML IV ×2 (03:28→23:21)
--- NOTE | 2023-05-01 04:40 | ECG_ITS ---
[facility] Test Date: 2023-05-01 Pat Name: Radha Samuel Department: Room: [facility] Gender: Female Grape Picker: : 1940 Requested By: Aashish Murillo Order Number: [id number] Vidya MD: Manda Harrington M.D. Measurements Intervals [place] Rate: 78 P: 0 [place]: 0 QRS: -76 QRSD: 143 T: 51 QT: 440 QTc: 503 Interpretive Statements ATRIAL FIBRILLATION LEFT AXIS DEVIATION [QRS AXIS < -30] INTRAVENTRICULAR CONDUCTION DELAY [130+ ms QRS DURATION] Compared to ECG 05/01/2023 03:07:17 No significant changes Electronically Signed On 05-01-2023 11:26:31 CDT by Manda Harrington M.D. [id number]
[2023-05-01 05:35] LABS: Troponin 5 2HR 15.97 ng/L (0-10)
[2023-05-01 05:36] LABS: Troponin 5 2HR Delta 0.97 ABS# (0-10)
--- NOTE | 2023-05-01 09:24 | ECG_ITS ---
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 Measurements Intervals [place] Rate: 79 P: 0 MD: 0 QRS: -65 QRSD: 144 T: 27 QT: 445 QTc: 512 Interpretive Statements ATRIAL FIBRILLATION INDETERMINATE AXIS INTRAVENTRICULAR CONDUCTION DELAY [130+ ms QRS DURATION] Compared to ECG 05/01/2023 04:59:02 Indeterminate axis now present Left-axis deviation no longer present Electronically Signed On 05-01-2023 11:26:03 CDT by Manda Harrington M.D. [id number]
--- NOTE | 2023-05-01 11:37 | PM.CONSULT ---
Providers/Reason For Consult Consulting Physician/Specialty*: Dr. Harrington, Cardiology Reason for Consult*: Pause, Dizziness Attending Physician: Jamie Lopez MD Primary Care Provider: Estee Novak MD History of Present Illness History of Present Illness Radha Samuel is a 83 year old female with?past medical history of hypertension, hyperlipidemia, chronic atrial fibrillation, obesity BMI ~ 37, mild aortic stenosis and anxiety. She had abnormal stress test and LHC was done with no obstructive CAD.?Normal LV function on last echo.? She has been having intermittent dizziness, fatigue and one syncopal episode that took her to ER at [facility] on 04/12/23. She was placed on event monitor few days back. She takes metoprolol tartrate 50 mg BID and after taking her evening dose she developed dizziness and near syncopal episode. She got a call from [employer] for pauses and was sent to ER for further evluation. She is asymptomatic at the time of exam. EKG and telemetry with atrial fibrillation with controlled ventricular response. Her Ashvin is at bedside. Review of Systems General: Reports: 10 or more systems reviewed and unremarkable except in HPI and below Const: Reports: fatigue; Denies: fever(s) Card: Reports: chest pain and irregular heart rhythm Resp: Denies: dyspnea GI: Denies: abdominal pain, nausea, vomiting, hematochezia or melena Medications/Allergies Home Medications Medication Instructions Recorded Confirmed Last Taken Type fluticasone propionate 50 1 spray intranasal DAILY PRN Nasal 01/14/21 05/01/23 Unknown History mcg/actuation nasal Congestion spray,suspension (Flonase Allergy Relief) acetaminophen 650 mg 650 mg PO Q12H PRN Pain 02/24/22 05/01/23 Unknown History tablet,extended release (Arthritis Pain Relief (acetaminophen) ER) fexofenadine 180 mg tablet 180 mg PO DAILY 02/24/22 05/01/23 Unknown History (Ladonna Allergy) methocarbamol 500 mg tablet 500 mg PO TID PRN Muscle Spasm 08/19/22 05/01/23 Unknown History nitroglycerin 0.4 mg sublingual 0.4 mg sublingual Q5M PRN chest 11/11/22 05/01/23 Unknown Rx tablet pain #30 tabs apixaban 5 mg tablet (Eliquis) 5 mg PO BID #180 tabs 03/17/23 05/01/23 Unknown Rx atorvastatin 80 mg tablet 80 mg PO DAILY #90 tabs 03/17/23 05/01/23 Unknown Rx cholecalciferol (vitamin D3) 25 25 mcg PO BID 03/17/23 05/01/23 Unknown History mcg (1,000 unit) capsule (Vitamin D3) furosemide 40 mg tablet (Lasix) 40 mg PO DAILY #90 tabs 03/17/23 05/01/23 Unknown Rx metoprolol tartrate 50 mg tablet 50 mg PO BID@0900,2100 #180 tabs 03/17/23 05/01/23 Unknown Rx potassium chloride 20 mEq 20 meq PO DAILY #90 tabs 03/17/23 05/01/23 Unknown Rx tablet,extended release Allergies Allergy/AdvReac Type Severity Reaction Status Date / Time morphine Allergy Severe hallucinati Verified 04/26/23 09:00 ons Current Medications Generic Name Dose Route Start Last Admin Trade Name Freq PRN Reason Stop Dose Admin Sodium Chloride 1,000 mls @ 50 mls/hr 05/01/23 02:15 05/01/23 03:28 Sodium Chloride 0.9% IV 50 mls/hr .Q20H EVELYNE Administration PFSH Acute PFSH: Medical History Abnormal stress test Anxiety Aortic stenosis Chest pressure Diastolic heart failure Essential hypertension Hyperlipidemia Hypertension Obesity Osteopenia Surgical History H/O right wrist surgery S/P hysterectomy Family History Mother Cancer Father Cancer Brother Cancer Social History Smoking and tobacco status: never smoked Alcohol intake: current Alcohol intake frequency: holidays/special occasions only Household members: spouse Marital status: service: No Current occupational status: retired Vitals/I&O/Wt Last Vital Signs Temp 98.1 F 05/01/23 02:35 Pulse 135 H 05/01/23 10:00 Resp 18 05/01/23 10:00 BP 151/118 05/01/23 10:00 Pulse Ox 95 05/01/23 10:00 O2 Del Method Room Air 05/01/23 07:00 04/30/23 05/01/23 05/01/23 22:59 06:59 14:59 Intake Total 110 / 110 Output Total 250 / 250 350 / 350 Balance -140 / -140 -350 / -350 Weight last 48 hrs Weight 202 lb 13.204 oz Weight 202 lb 13.204 oz Physical Exam Const: COMMON NORMALS: no acute distress, patient oriented x3 and alert GENERAL APPEARANCE: cooperative, comfortable, well kempt and well hydrated HENMT: COMMON NORMALS: hearing grossly normal bilaterally, external ears normal and moist oral mucous membranes FACE & SINUS: normal facial exam EXTERNAL EAR: Yes external ears normal Eye: COMMON NORMALS: EOMs intact bilaterally and no scleral icterus GENERAL EYE: appearance normal, both eyes and all related structures ALIGNMENT: Yes alignment normal Neck/C-Spine: COMMON NORMALS: no lymphadenopathy, supple and no JVD GENERAL: Yes normal visual inspection and Yes trachea midline CAROTIDS: Yes normal carotid upstroke Chest: COMMONS NORMALS: normal inspection of the chest and normal palpation of entire chest wall CHEST: Yes Symmetrical chest wall rise and No tenderness Resp: COMMON NORMALS: clear to auscultation bilaterally EFFORT & INSPECTION: Yes able to speak in complete sentences and No respiratory distress AUSCULTATION: clear to auscultation bilaterally, no crackles, no rales, no rhonchi and no wheezes Cardio: COMMON NORMALS: no JVD, regular rate, S1 normal heart sound present, S2 normal heart sound present and Peripheral pulses 2+ throughout; negative for regular rhythm (irregularly irregular) PALPATION: normal PMI RATE: regular rate RHYTHM: abnormal rhythm (irregularly irregular) HEART SOUNDS: S1 normal heart sound present, S2 normal heart sound present, no click, no gallops and no murmurs BRUITS: no carotid bruits PERIPHERAL PULSES: Peripheral pulses 2+ throughout, radial pulses present, posterior tibial pulses present and dorsalis pedis present GI: COMMON NORMALS: Soft to palpation AUSCULTATION: Yes normoactive bowel sounds PALPATION: Yes Soft to palpation, No Tenderness to palpation present (GI), No Guarding due to palpation present (GI) and No Rigid due to palpation PERCUSSION: tympanic to percussion Extremity: GENERAL: No clubbing, No cyanosis, Yes edema and No pallor Neuro: COMMON NORMALS: patient oriented x3, CN's II-XII intact bilaterally and no focal motor deficits SENSORIUM/ORIENTATION: Yes alert Psych: COMMON NORMALS: Normal thought process present and speech normal APPEARANCE: Yes well kempt SPEECH: Yes normal speech MOOD & AFFECT: Yes euthymic mood THOUGHT PROCESS: Normal thought process present THOUGHT CONTENT: Yes Normal thought content present Data 05/01/23 02:42 05/01/23 02:42 A&P Assessment and plan (1) Pre-syncope: Episodes of presyncope and dizziness and some episodes of syncope in past several months -documented pauses longest being 12 sec long on monitor 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 Currently in A. fib with controlled VR -stop AV tito blockers -hold Eliquis for potential PPM on Tuesday/Tuesday continue to monitor closely on telemetry (2) A-fib: Qualifiers: Atrial fibrillation type: persistent (not longstanding) Qualified Code(s): I48.19 - Other persistent atrial fibrillation (3) Essential hypertension: (4) Hyperlipidemia: Qualifiers: Hyperlipidemia type: other hyperlipidemia Qualified Code(s): E78.49 - Other hyperlipidemia (5) Diastolic heart failure: (6) Aortic stenosis: Qualifiers: Cardiac valve disease etiology: nonrheumatic Qualified Code(s): I35.0 - Nonrheumatic aortic (valve) stenosis Coding Level of Care Code 76739 Diagnoses Pre-syncope R55 A-fib I48.19 Atrial fibrillation type: persistent (not longstanding) Essential hypertension I10 Hyperlipidemia E78.49 Hyperlipidemia type: other hyperlipidemia Diastolic heart failure I50.30 Aortic stenosis I35.0 Cardiac valve disease etiology: nonrheumatic
--- NOTE | 2023-05-01 17:04 | PM.MISC ---
Miscellaneous Note Note: Overnight HPI labs and vitals have been reviewed, currently patient is maintaining decent heart rate, maintaining decent blood pressure, denied any significant chest pain shortness of breath ,EKG showing atrial fibrillation with heart rate of 79.Beta-amy has been kept on hold, patient took last dose of Eliquis yesterday night, currently Eliquis on hold. Cardiology on board.
[2023-05-01] MEDS: atorvastatin 40 mg Tablet PO (17:18)
[2023-05-02] VITALS (28 sets, daily range): BP systolic 108–173; BP diastolic 66–133; PULSE 80–155; RESP 14–45; TEMP 36.8–37.1; O2SAT 90–98
--- NOTE | 2023-05-02 02:34 | ECG_ITS ---
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 Measurements Intervals [place] Rate: 109 P: 0 [place]: 0 QRS: 244 QRSD: 141 T: 48 QT: 383 QTc: 517 Interpretive Statements ATRIAL FIBRILLATION WITH RAPID VENTRICULAR RESPONSE RIGHT AXIS DEVIATION [QRS AXIS > 100] INTRAVENTRICULAR CONDUCTION DELAY [130+ ms QRS DURATION] Compared to ECG 05/01/2023 09:24:07 Right-axis deviation now present Indeterminate axis no longer present Electronically Signed On 05-02-2023 21:12:00 CDT by Manda Harrington M.D. [email or web address].[employer]/store/NU/[id number] f
--- NOTE | 2023-05-02 02:58 | W.PM.EVENTAC ---
Event Note Event Note: Patient with pain between shoulder blades. Having intermittent tachycardia/afib with RVR. Aware of pause earlier. Home beta amy held. With current symptoms, rechecking serial EKG and troponins. EKG presently with afib with RVR 109, no acute st segment changes per my interpretation. Eliquis held in case needs intervention. Added nitropaste at 0.5in q 6hr for symptoms. Current heart rate 119. Blood pressure 158/98.
[2023-05-02 03:14] LABS: Basophils % 0.6 %; Eosinophils # 0.1 10^3/uL (0.0-0.8); Eosinophils % 1.1 %; Hematocrit 37.8 % (37.0-47.0); Hemoglobin 11.9 g/dL (11.5-15.3); Lymphocytes # 2.6 10^3/uL (0.8-4.8); Mean Corpuscular HGB Conc 31.5 g/dL (30.0-36.0); Mean Corpuscular Hemoglobin 29.5 pg (28.0-34.0); Mean Corpuscular Volume 93.8 fl (81-99); Mean Platelet Volume 11.1 fL (7.4-10.4); Monocytes # 0.7 10^3/uL (0.2-0.9); Monocytes % 9.6 %; Neutrophils # 3.73 10^3/uL (1.8-7.7); Neutrophils % 52.4 %; Nucleated Red Blood Cells % 0 %; Platelet Count 158 10^3/cmm (130-400); Red Blood Count 4.03 10^6/uL (4.1-5.3); Red Cell Distribution Width 14.5 % (12.1-15.1); White Blood Count 7.1 10^3/uL (4.0-10.0)
[2023-05-02] MEDS: nitroglycerin 1 gm/inch oint Pkt 0.5 INCH TOPICAL ×2 (03:15→09:44)
[2023-05-02 03:26] LABS: Alanine Aminotransferase 13 U/L (0-33); Albumin Level 3.8 g/dL (3.5-5.2); Alkaline Phosphatase 90 U/L (35-105); Anion Gap 12.7 (5-19); Aspartate Amino Transferase 14 U/L (0-32); Blood Urea Nitrogen 12 mg/dL (8-23); Calcium 8.2 mg/dL (8.5-10.5); Carbon Dioxide 23 mmol/L (22-29); Chloride 107 mmol/L (98-107); Globulin 2.1 g/dL (1.3-4.6); Glucose 99 mg/dL (65-115); Osmolality Calculated 286 mOsm/kg (285-295); Potassium 4.7 mmol/L (3.5-5.1); Sodium 138 mmol/L (136-145); Total Bilirubin 0.5 mg/dL (0.15-1.2); Total Protein 5.9 g/dL (6.6-8.7); Troponin(5th) Baseline 14 ng/L (0-10)
--- NOTE | 2023-05-02 03:31 | PC.NURSE ---
Patient stated complaints of neck pain that radiates through her shoulder blades. Dr. Devi notified and advised for trop series with EKG and to apply topical Nitro.
[2023-05-02 04:49] LABS: Troponin 5 2HR 15.22 ng/L (0-10)
[2023-05-02 04:51] LABS: Troponin 5 2HR Delta 1.22 ABS# (0-10)
--- NOTE | 2023-05-02 08:28 | ECG_ITS ---
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 Measurements Intervals [place] Rate: 87 P: 0 [place]: 0 QRS: 255 QRSD: 139 T: 52 QT: 417 QTc: 503 Interpretive Statements ATRIAL FIBRILLATION RIGHT AXIS DEVIATION [QRS AXIS > 100] INTRAVENTRICULAR CONDUCTION DELAY [130+ ms QRS DURATION] POSSIBLE ANTERIOR MYOCARDIAL INFARCTION , OF INDETERMINATE AGE [30 ms Q WAVE IN V3/V4, OR R < 0.2 mV IN V4] Compared to ECG 05/02/2023 02:35:16 Myocardial infarct finding now present Electronically Signed On 05-02-2023 21:30:06 CDT by Manda Harrington M.D. [id number]
--- NOTE | 2023-05-02 08:37 | USCV_ITS ---
Radha Samuel Age: 83 Gender: F : 1940 Exam Date: 05/02/2023 10:48 Ordering Phys: Manda Harrington MD ([email or web address]) Technologist: Alan Rand [place] [facility] Indication: Assess LV function BP: 132 / 84 HR: 84 Rhythm: Sinus Technical Quality: Adequate MEASUREMENTS (Male / Female) Normal Values 2D ECHO LV Ejection Fraction MOD 2C 72.2 % LV Ejection Fraction 2C AL 73.6 % FINDINGS Left Ventricle Right Ventricle Right Atrium Left Atrium Mitral Valve Aortic Valve Tricuspid Valve Pulmonic Valve Pericardium Aorta IVC CONCLUSIONS 1. This is a limited study with echo contrast. 2. Normal left ventricular size and low normal function with an estimated ejection fraction of 55 %. No diagnostic regional wall motion abnormality. Normal septal motion consistent with conduction abnormality. 2. Upper normal right ventricular size and low normal right ventricular systolic function. 3. Interpretation is limited by atrial fibrillation and abnormal septal motion. Manda Harrington MD (Electronically Signed) Final Date: 02 May 2023 12:33 S
[2023-05-02 09:35] LABS: Troponin 5 6HR 18.15 ng/L (0-10)
[2023-05-02 09:36] LABS: Troponin 5 6HR Delta 4.15 ng/L (0-12)
--- NOTE | 2023-05-02 11:17 | PM.PN ---
Subjective Subjective: Overnight patient complained of pain between shoulder blades. She continued to have intermittent A-fib with RVR with heart rate going up to 140. At the time of my assessment her heart rate is currently at 95. No pauses noted. Eliquis continues to be on hold. She is currently getting an echocardiogram with contrast. Nitropaste was added overnight for chest pain, currently pain is resolved. Troponin trend 14--> 15--> 18 without significant delta's Vitals/I&O/Wt Last Vital Signs Temp 98.8 F 05/02/23 09:00 Pulse 95 05/02/23 09:44 Resp 19 H 05/02/23 09:00 BP 144/91 05/02/23 09:44 Pulse Ox 94 05/02/23 08:00 O2 Del Method Room Air 05/02/23 08:00 05/01/23 05/02/23 05/02/23 22:59 06:59 14:59 Intake Total 100 / 300 1134.167 / 1434.167 118 / 118 Output Total 200 / 550 500 / 1050 Balance -100 / -250 634.167 / 384.167 118 / 118 Weight last 48 hrs Weight 89.358 kg Weight 92 kg Weight 92 kg Physical Exam Narrative: General: No acute distress, AO x3 HEENT: PERRLA, pupils bilaterally equal and reactive, pallors not present Chest: Normal vesicular breath sounds, no added sounds, equal good air entry bilaterally CVS: S1-S2 regular, no murmurs, no tachycardia, no gallops, no rubs Abdomen: Soft, nontender, no organomegaly, bowel sounds present Neuro: No focal deficits, no facial deformity, AO x3, power 5/5 in all limbs Data 05/02/23 02:35 05/02/23 02:35 A&P Assessment and plan (1) Arrhythmia: (2) A-fib: Qualifiers: Atrial fibrillation type: persistent (not longstanding) Qualified Code(s): I48.19 - Other persistent atrial fibrillation Plan 83-year-old lady transferred from [facility] after her lunchroom monitor noted to have a significant pause lasting 12 seconds. She has not had any syncopal episodes during the hospital stay, however states that she feels unsteady and mildly short of breath upon attempting to get out of bed and exert. Overnight had an episode of chest pain, troponin series without significant delta She is currently getting an echocardiogram at bedside Her beta-blockers continue to be on hold Appreciate cardiology recommendations Plan for pacemaker placement once 48 hours off of Eliquis. Last dose taken on the night of 04/30. Continue close telemetry monitoring in the interim. Currently telemetry is showing A-fib with controlled ventricular response, however patient does have intermittent tachycardia up to 120 to 140 bpm. NPO post midnight Attestations Medical Necessity Statement*: planned Pacemenaker placement Coding Level of Care Code Acute Code for [facility] Fwd Diagnoses Arrhythmia I49.9 A-fib I48.19 Atrial fibrillation type: persistent (not longstanding)
--- NOTE | 2023-05-02 12:07 | ECG_ITS ---
[facility] Test Date: 2023-05-02 Pat Name: Radha Samuel Department: Room: 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 Measurements Intervals [place] Rate: 98 P: 0 PA: 0 QRS: 124 QRSD: 135 T: 52 QT: 372 QTc: 477 Interpretive Statements ATRIAL FIBRILLATION RIGHT AXIS DEVIATION [QRS AXIS > 100] INTRAVENTRICULAR CONDUCTION DELAY [130+ ms QRS DURATION] POSSIBLE ANTERIOR MYOCARDIAL INFARCTION , OF INDETERMINATE AGE [30 ms Q WAVE IN V3/V4, OR R < 0.2 mV IN V4] Compared to ECG 05/02/2023 08:28:20 No significant changes Electronically Signed On 05-02-2023 21:06:36 CDT by Manda Harrington M.D. [id number]
--- NOTE | 2023-05-02 12:24 | PC.NURSE ---
Event: 1155-Patient states she is having chest pain 12/17. Dr. Gilbert notified and orders received for EKG, Nitro dose change to 1in, and Xanax PRN. 2L NC applied for patient comfort. Patient reports at the time of EKG chest pain had resolved.
--- NOTE | 2023-05-02 12:27 | PM.PN ---
Subjective Subjective: chest pain this morning. No delta troponin. No EKG changes. BP and HR high at that time Medications: Reviewed: Yes Vitals/I&O/Wt Last Vital Signs Temp 98.8 F 05/02/23 09:00 Pulse 95 05/02/23 09:44 Resp 19 H 05/02/23 09:00 BP 144/91 05/02/23 09:44 Pulse Ox 94 05/02/23 08:00 O2 Del Method Room Air 05/02/23 08:00 05/01/23 05/02/23 05/02/23 22:59 06:59 14:59 Intake Total 100 / 300 1134.167 / 1434.167 118 / 118 Output Total 200 / 550 500 / 1050 Balance -100 / -250 634.167 / 384.167 118 / 118 Weight last 48 hrs Weight 197 lb Weight 202 lb 13.204 oz Weight 202 lb 13.204 oz Physical Exam Const: COMMON NORMALS: no acute distress, patient oriented x3 and alert GENERAL APPEARANCE: cooperative, comfortable, well kempt and well hydrated HENMT: COMMON NORMALS: hearing grossly normal bilaterally, external ears normal and moist oral mucous membranes FACE & SINUS: normal facial exam NOSE: Normal septum present and No nasal discharge present; no Epistaxis present EXTERNAL EAR: Yes external ears normal MOUTH: lip normal Eye: COMMON NORMALS: EOMs intact bilaterally and no scleral icterus GENERAL EYE: appearance normal, both eyes and all related structures ALIGNMENT: Yes alignment normal Neck/C-Spine: COMMON NORMALS: no lymphadenopathy, supple and no JVD GENERAL: Yes normal visual inspection and Yes trachea midline CAROTIDS: Yes normal carotid upstroke Lymph: LYMPHATIC: no lymphadenopathy noted Chest: COMMONS NORMALS: normal inspection of the chest and normal palpation of entire chest wall CHEST: Yes Symmetrical chest wall rise and No tenderness Resp: COMMON NORMALS: clear to auscultation bilaterally EFFORT & INSPECTION: Yes able to speak in complete sentences, No tachypneic, No respiratory distress, No pursed lip breathing, No labored and No Actively coughing AUSCULTATION: clear to auscultation bilaterally, no crackles, no rales, no rhonchi and no wheezes Cardio: COMMON NORMALS: no JVD, regular rate, S1 normal heart sound present, S2 normal heart sound present and Peripheral pulses 2+ throughout; negative for regular rhythm (irregularly irregular) PALPATION: normal PMI RATE: regular rate RHYTHM: abnormal rhythm (irregularly irregular) HEART SOUNDS: S1 normal heart sound present, S2 normal heart sound present, no click, no gallops and no murmurs BRUITS: no carotid bruits PERIPHERAL PULSES: Peripheral pulses 2+ throughout, radial pulses present, posterior tibial pulses present and dorsalis pedis present GI: COMMON NORMALS: Soft to palpation AUSCULTATION: Yes normoactive bowel sounds PALPATION: Yes Soft to palpation, No Tenderness to palpation present (GI), No Guarding due to palpation present (GI) and No Rigid due to palpation PERCUSSION: tympanic to percussion Extremity: GENERAL: No clubbing, No cyanosis, Yes edema and No pallor Neuro: COMMON NORMALS: patient oriented x3, CN's II-XII intact bilaterally and no focal motor deficits SENSORIUM/ORIENTATION: Yes alert Psych: COMMON NORMALS: Normal thought process present and speech normal APPEARANCE: Yes well kempt SPEECH: Yes normal speech MOOD & AFFECT: Yes euthymic mood THOUGHT PROCESS: Normal thought process present THOUGHT CONTENT: Yes Normal thought content present Data 05/02/23 02:35 05/02/23 02:35 A&P Assessment and plan (1) Pre-syncope: Episodes of presyncope and dizziness and some episodes of syncope in past several months -documented pauses longest being 12 sec long on monitor 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 Currently in A. fib with controlled VR -stop AV tito blockers -hold Eliquis for potential PPM on Tuesday continue to monitor closely on telemetry (2) A-fib: Qualifiers: Atrial fibrillation type: persistent (not longstanding) Qualified Code(s): I48.19 - Other persistent atrial fibrillation (3) Essential hypertension: (4) Hyperlipidemia: Qualifiers: Hyperlipidemia type: other hyperlipidemia Qualified Code(s): E78.49 - Other hyperlipidemia (5) Diastolic heart failure: Echo with low normal LV function (6) Aortic stenosis: Qualifiers: Cardiac valve disease etiology: nonrheumatic Qualified Code(s): I35.0 - Nonrheumatic aortic (valve) stenosis Plan Tachy Hardik syndrome Attestations Medical Necessity Statement*: needs hospital stay for PPM placement Coding Level of Care Code 61830 Diagnoses Pre-syncope R55 A-fib I48.19 Atrial fibrillation type: persistent (not longstanding) Essential hypertension I10 Hyperlipidemia E78.49 Hyperlipidemia type: other hyperlipidemia Diastolic heart failure I50.30 Aortic stenosis I35.0 Cardiac valve disease etiology: nonrheumatic
[2023-05-02] MEDS: nitroglycerin 1 gm/inch oint Pkt 1 INCH TOPICAL ×2 (12:34→17:46)
[2023-05-02] MEDS: amlodipine 5 mg Tablet 2.5 MG PO (15:52)
[2023-05-02] MEDS: atorvastatin 40 mg Tablet PO (17:46)
[2023-05-02] MEDS: ALPRAZolam 0.5 mg Tablet 0.25 MG PO (17:48)
[2023-05-02] MEDS: sodium chloride 0.9% 1,000 ML 50 ML IV (17:48)
--- NOTE | 2023-05-02 19:29 | PM.CONSULT ---
Providers/Reason For Consult Consulting Physician/Specialty*: SHILO Jensen MD/cardiology Reason for Consult*: Patient with chronic atrial fibrillation and prolonged pauses presenting with recurrent syncope Requesting Physician: Dr. Harrington// Attending Physician: Brigida Gilbert MD Primary Care Provider: Estee Novak MD History of Present Illness History of Present Illness Radha Samuel is a 83 year old female with a history of chronic atrial fibrillation, is admitted to the hospital with recurrent episodes of syncope/near syncope. She had a total of 4 episodes of syncope since April 12 of this month. She has an event monitor which revealed prolonged pauses of up to 12 seconds at 9:30 PM on 04/30/2023. She is admitted to hospital for further evaluation management. Patient has been taking metoprolol 50 mg p.o. twice daily for a long time. She had these episodes of syncopal episodes preceded by some dizziness. She denies seizure activities. No bowel or bladder incontinence. Episodes last for few seconds. Since the hospital admission, the metoprolol is on hold. Her heart rate has been going up and down. She gets dizzy when the heart rate goes up along with a blood pressure. She has been having episodes of chest pain with the high blood pressure as well. She had a cardiac catheterization in 2020 and was found to have no significant obstructive coronary artery disease. She is known to have high blood pressure, dyslipidemia, mild aortic stenosis and anxiety disorder. Her LV systolic function was found to be within normal limits based on the echocardiogram. Review of Systems Narrative: CONSTITUTIONAL: No fever or chills. EYES: No blurring of vision or other visual disturbances lately. ENT: No hoarseness of voice, auditory disturbances or sore throat. CARDIOVASCULAR: As mentioned above. RESPIRATORY: No significant cough. GASTROINTESTINAL: No hematemesis or melena. GENITOURINARY: No dysuria or hematuria. INTEGUMENTARY: No skin rashes or history of skin cancer. NEURO: Recurrent syncope as mentioned above PSYCHIATRIC: No history of psychosis or major depression. HEMATOLOGIC: No bleeding disorders or significant anemia. ENDOCRINE: No history of polyuria or polydipsia. MUSCULOSKELETAL: No recent joint pain or swelling. ALLERGY/IMMUNOLOGY: As mentioned above. Medications/Allergies Home Medications Medication Instructions Recorded Confirmed Last Taken Type fluticasone propionate 50 1 spray intranasal DAILY PRN Nasal 01/14/21 05/01/23 Unknown History mcg/actuation nasal Congestion spray,suspension (Flonase Allergy Relief) acetaminophen 650 mg 650 mg PO Q12H PRN Pain 02/24/22 05/01/23 Unknown History tablet,extended release (Arthritis Pain Relief (acetaminophen) ER) fexofenadine 180 mg tablet 180 mg PO DAILY 02/24/22 05/01/23 Unknown History (Ladonna Allergy) methocarbamol 500 mg tablet 500 mg PO TID PRN Muscle Spasm 08/19/22 05/01/23 Unknown History nitroglycerin 0.4 mg sublingual 0.4 mg sublingual Q5M PRN chest 11/11/22 05/01/23 Unknown Rx tablet pain #30 tabs apixaban 5 mg tablet (Eliquis) 5 mg PO BID #180 tabs 03/17/23 05/01/23 Unknown Rx atorvastatin 80 mg tablet 80 mg PO DAILY #90 tabs 03/17/23 05/01/23 Unknown Rx cholecalciferol (vitamin D3) 25 25 mcg PO BID 03/17/23 05/01/23 Unknown History mcg (1,000 unit) capsule (Vitamin D3) furosemide 40 mg tablet (Lasix) 40 mg PO DAILY #90 tabs 03/17/23 05/01/23 Unknown Rx metoprolol tartrate 50 mg tablet 50 mg PO BID@0900,2100 #180 tabs 03/17/23 05/01/23 Unknown Rx potassium chloride 20 mEq 20 meq PO DAILY #90 tabs 03/17/23 05/01/23 Unknown Rx tablet,extended release Allergies Allergy/AdvReac Type Severity Reaction Status Date / Time morphine Allergy Severe hallucinati Verified 04/26/23 09:00 ons Current Medications Generic Name Dose Route Start Last Admin Trade Name Freq PRN Reason Stop Dose Admin Alprazolam 0.25 mg 05/02/23 11:58 05/02/23 17:48 Alprazolam 0.5 Mg Tablet PO 0.25 mg BID PRN Administration ANXIETY Amlodipine Besylate 2.5 mg 05/02/23 15:20 05/02/23 15:52 Amlodipine 5 Mg Tablet PO 2.5 mg DAILY EVELYNE Administration Atorvastatin Calcium 40 mg 05/01/23 18:00 05/02/23 17:46 Atorvastatin 40 Mg Tablet PO 40 mg QPM EVELYNE Administration Sodium Chloride 1,000 mls @ 50 mls/hr 05/01/23 02:15 05/02/23 17:48 Sodium Chloride 0.9% IV 50 mls/hr .Q20H EVELYNE Administration Nitroglycerin 1 inch 05/02/23 12:00 05/02/23 17:46 Nitroglycerin 1 Gm/Inch Oint Pkt TOPICAL 1 inch Q6H EVELYNE Administration PFSH Acute PFSH: Medical History Abnormal stress test Anxiety Aortic stenosis Chest pressure Diastolic heart failure Essential hypertension Hyperlipidemia Hypertension Obesity Osteopenia Surgical History H/O right wrist surgery S/P hysterectomy Family History Mother Cancer Father Cancer Brother Cancer Social History Smoking and tobacco status: never smoked Alcohol intake: current Alcohol intake frequency: holidays/special occasions only Household members: spouse Marital status: service: No Current occupational status: retired Vitals/I&O/Wt Last Vital Signs Temp 98.3 F 05/02/23 15:00 Pulse 106 H 05/02/23 18:00 Resp 27 H 05/02/23 18:00 BP 155/78 05/02/23 18:00 Pulse Ox 96 05/02/23 17:00 O2 Del Method Room Air 05/02/23 17:00 O2 Flow Rate 2 05/02/23 12:00 05/02/23 05/02/23 05/02/23 06:59 14:59 22:59 Intake Total 1134.167 / 1434.167 358 / 358 922.5 / 1280.5 Output Total 500 / 1050 Balance 634.167 / 384.167 358 / 358 922.5 / 1280.5 Weight last 48 hrs Weight 197 lb Weight 202 lb 13.204 oz Weight 202 lb 13.204 oz Physical Exam Narrative: GENERAL: The patient is alert and oriented times three. Not in any acute distress. Moderately obese HEENT: No significant pallor, icterus or lymphadenopathy.Oral cavity: There are no mucous membrane lesions. NECK: Trachea appears to be central. No masses noted. No JVD or thyromegaly appreciated. RESPIRATORY: Chest is symmetrical. No intercostals muscle retraction or any accessory muscle activation. There is no chest wall tenderness. Breath sounds are heard bilaterally. No rales or rhonchi heard. No evidence of any consolidation. [] BREASTS: Deferred. [] HEART: The heart sounds are normal. No S3 or S4. [No significant murmurs] []. No pericardial rub ABDOMEN: No vessel pulsations or distention. No tenderness. No organomegaly appreciated. Bowel sounds are normally heard. [] : Deferred. RECTAL: Deferred. LYMPHATIC: No lymphadenopathy noted in the neck. EXTREMITIES: No edema or cyanosis. No clubbing. MUSCULOSKELETAL: No acute joint deformities or swelling SKIN: There are no significant rashes or ecchymosis NEUROPSYCHIATRIC: The patient is alert and oriented x3. Appears to be in a good mood. No tremors or rigidity noted. Data 05/03/23 03:40 05/03/23 03:40 EKG 1: My Interpretation: Atrial fibrillation with controlled ventricular response rate of 98 bpm. Nonspecific IVCD. Right axis deviation. Poor R wave progression. A&P Assessment and plan (1) Recurrent syncope: Most likely these episodes are related to severe bradycardia/prolonged pauses. This is as evidenced in the event monitor. (2) Symptomatic bradycardia: Patient has features of sinus tito dysfunction. She has episodes of tachy or sharath arrhythmias. (3) Chronic atrial fibrillation: She has been on long-term oral anticoagulation. The oral anticoagulant is held since Tuesday, more than 48 hours ago (4) Essential hypertension: Currently is normotensive. Patient seems to have intermittent accelerated hypertension (5) Hyperlipidemia: Qualifiers: Hyperlipidemia type: other hyperlipidemia Qualified Code(s): E78.49 - Other hyperlipidemia (6) Diastolic heart failure: Currently seems to be compensated. Plan In view of the patient's symptomatic bradycardia tachyarrhythmia/prolonged pauses, for further management of her condition, a permanent pacemaker evaluation would be appropriate. Because of her chronic atrial fibrillation, we may go ahead and do the single-chamber pacemaker. I discussed with the patient, the risk and benefits of the procedure. The risk of bleeding, hematoma, vascular injury, myocardial perforation, pericardial tamponade pneumothorax, infection, renal failure and other concomitant complications were explained in detail. The patient and the family understood this well and consented to proceed. Consult Attestations Medical Necessity Statement: Patient requires continued hospital stay for close monitoring and further management Coding Level of Care Code 60261 Diagnoses Recurrent syncope R55 Symptomatic bradycardia R00.1 Chronic atrial fibrillation I48.20 Essential hypertension I10 Hyperlipidemia E78.49 Hyperlipidemia type: other hyperlipidemia Diastolic heart failure I50.30
[2023-05-02] MEDS: ceFAZolin 1,000 MG in sodium chloride 0.9% (plus) 50 ML 100 MG IV (21:11)
[2023-05-03] VITALS (28 sets, daily range): BP systolic 100–155; BP diastolic 57–126; PULSE 72–136; RESP 15–29; TEMP 36.3–36.8; O2SAT 88–96
[2023-05-03] MEDS: nitroglycerin 1 gm/inch oint Pkt 1 INCH TOPICAL ×4 (00:48→18:35)
[2023-05-03 04:16] LABS: Basophils % 0.5 %; Eosinophils # 0.1 10^3/uL (0.0-0.8); Eosinophils % 1.4 %; Hematocrit 35.4 % (37.0-47.0); Hemoglobin 11.5 g/dL (11.5-15.3); Lymphocytes # 2.5 10^3/uL (0.8-4.8); Lymphocytes % 31.3 %; Mean Corpuscular HGB Conc 32.5 g/dL (30.0-36.0); Mean Corpuscular Hemoglobin 30.1 pg (28.0-34.0); Mean Corpuscular Volume 92.7 fl (81-99); Mean Platelet Volume 10.8 fL (7.4-10.4); Monocytes # 0.9 10^3/uL (0.2-0.9); Monocytes % 10.9 %; Neutrophils # 4.47 10^3/uL (1.8-7.7); Neutrophils % 55.5 %; Nucleated Red Blood Cells % 0 %; Platelet Count 162 10^3/cmm (130-400); Red Blood Count 3.82 10^6/uL (4.1-5.3); Red Cell Distribution Width 14.6 % (12.1-15.1); White Blood Count 8.1 10^3/uL (4.0-10.0)
[2023-05-03 04:40] LABS: Alanine Aminotransferase 12 U/L (0-33); Albumin Level 3.7 g/dL (3.5-5.2); Alkaline Phosphatase 78 U/L (35-105); Anion Gap 13.7 (5-19); Aspartate Amino Transferase 13 U/L (0-32); Blood Urea Nitrogen 9 mg/dL (8-23); Calcium 8.1 mg/dL (8.5-10.5); Carbon Dioxide 24 mmol/L (22-29); Chloride 108 mmol/L (98-107); Glucose 98 mg/dL (65-115); Magnesium 1.9 mg/dL (1.7-2.3); Osmolality Calculated 291 mOsm/kg (285-295); Potassium 4.7 mmol/L (3.5-5.1); Sodium 141 mmol/L (136-145); Total Bilirubin 0.4 mg/dL (0.15-1.2); Total Protein 5.7 g/dL (6.6-8.7)
[2023-05-03] MEDS: sodium chloride 0.9% 1,000 ML 75 ML IV (06:33)
[2023-05-03 08:36] LABS: INR 0.97 (0.8-1.2)
--- NOTE | 2023-05-03 08:52 | XRR_ITS ---
PROCEDURE INFORMATION: Exam: XR Chest Exam date and time: 05/03/2023 9:51 AM Age: 83 years old Clinical indication: Pre-operative exam; Cardiovascular screening and respiratory screening exam; Additional info: Pre pacemaker, as upright as possible TECHNIQUE: Imaging protocol: Radiologic exam of the chest. Views: 1 view. COMPARISON: DX XR chest 1V portable [id number] 04/30/2023 10:52 PM FINDINGS: Lungs: No pulmonary vascular congestion Pleural spaces: Unremarkable. No pleural effusion. No pneumothorax. Heart/Mediastinum: Cardiomegaly. Bones/joints: Unremarkable. XR/XR chest 1V portable [id number] IMPRESSION: Cardiomegaly with no acute process
--- NOTE | 2023-05-03 08:57 | W.PM.OPSUD ---
Surgery/Procedure H&P Update DATE OF PROCEDURE: May 03, 2023 DATE H&P PERFORMED: 05/02/23 PREOP DIAGNOSIS: Atrial fibrillation/symptomatic bradycardia/recurrent syncope PRIMARY INDICATION FOR PROCEDURE: As mentioned above. Prolonged pauses of 8 to 12 seconds on the monitor PLANNED PROCEDURE: Transvenous permanent single-chamber pacemaker insertion PATIENT REASSESSED PRIOR TO SEDATION, WITH NO CHANGE NOTED: Yes PHYSICAL EXAM: alert, oriented x 3, clear to auscultation bilaterally and regular rate & rhythm (Irregularly irregular rhythm) AIRWAY EVAL/ANESTHESIA PLAN: normal airway, see other exam findings, ASA III, Monitored Anesthesia, Local Anesthesia, Risks, benefits & alternatives of sedation and/or procedure discussed and Patient agrees to continue as planned
[2023-05-03] MEDS: amlodipine 5 mg Tablet 2.5 MG PO (09:57)
--- NOTE | 2023-05-03 14:43 | ECG_ITS ---
[facility] Test Date: 2023-05-03 Pat Name: Radha Samuel Department: Room: [facility] Gender: Female Warning Coordination Meteorologist: : 1940 Requested By: Arnoldo Jensen Order Number: [id number] Vidya MD: Amos Talley M.D. Measurements Intervals [place] Rate: 113 P: 0 PA: 0 QRS: 269 QRSD: 136 T: 78 QT: 363 QTc: 500 Interpretive Statements ATRIAL FIBRILLATION WITH RAPID VENTRICULAR RESPONSE RIGHT AXIS DEVIATION [QRS AXIS > 100] INTRAVENTRICULAR CONDUCTION DELAY [130+ ms QRS DURATION] POSSIBLE ANTERIOR MYOCARDIAL INFARCTION , OF INDETERMINATE AGE [30 ms Q WAVE IN V3/V4, OR R < 0.2 mV IN V4] Compared to ECG 05/02/2023 12:07:35 No significant changes Electronically Signed On 05-03-2023 23:34:04 CDT by Amos Talley M.D. [id number]
--- NOTE | 2023-05-03 18:00 | PM.PN ---
Subjective Subjective: Underwent pacemaker placement today. No acute events. Doing well postprocedure. Medications: Reviewed: Yes Vitals/I&O/Wt Last Vital Signs Temp 98.1 F 05/04/23 04:00 Pulse 112 H 05/04/23 08:00 Resp 17 05/03/23 15:00 BP 157/101 05/04/23 08:00 Pulse Ox 92 05/04/23 06:00 O2 Del Method Room Air 05/04/23 06:00 O2 Flow Rate 2 05/02/23 12:00 05/03/23 05/04/23 05/04/23 22:59 06:59 14:59 Intake Total 480 / 1480 1250 / 2730 120 / 120 Output Total 275 / 575 Balance 480 / 1180 975 / 2155 120 / 120 Weight last 48 hrs Weight 87.997 kg Weight 88.451 kg Physical Exam Narrative: General: No acute distress, AO x3 HEENT: PERRLA, pupils bilaterally equal and reactive, pallors not present Chest: Normal vesicular breath sounds, no added sounds, equal good air entry bilaterally CVS: S1-S2 regular, no murmurs, no tachycardia, no gallops, no rubs Abdomen: Soft, nontender, no organomegaly, bowel sounds present Neuro: No focal deficits, no facial deformity, AO x3, power 5/5 in all limbs Data 05/04/23 02:59 05/04/23 02:59 A&P Assessment and plan (1) Arrhythmia: (2) A-fib: Qualifiers: Atrial fibrillation type: persistent (not longstanding) Qualified Code(s): I48.19 - Other persistent atrial fibrillation Plan 83-year-old lady transferred from [facility] after her assisted living executive director noted to have a significant pause lasting 12 seconds. She has not had any syncopal episodes during the hospital stay, however states that she feels unsteady and mildly short of breath upon attempting to get out of bed and exert. Appreciate cardiology recommendations s/p PPM placement today , will plan to resume metoprolol tomorrow Continue close telemetry monitoring in the interim. Currently telemetry is showing A-fib with controlled ventricular response, however patient does have intermittent tachycardia up to 120 to 140 bpm. NPO post midnight Attestations Medical Necessity Statement*: s/p PPM today Coding Level of Care Code Acute Code for Chg Fwd Diagnoses Arrhythmia I49.9 A-fib I48.19 Atrial fibrillation type: persistent (not longstanding)
[2023-05-03] MEDS: atorvastatin 40 mg Tablet PO (18:35)
--- NOTE | 2023-05-03 18:52 | PM.OP ---
Operative Report Date of procedure: May 03, 2023 Pre-op diagnosis: Preop Diagnosis Atrial fibrillation/symptomatic bradycardia/ recurrent syncope Procedure: LOCATION: Inpatient, ICU #5 PREOPERATIVE DIAGNOSES: Chronic atrial fibrillation, symptomatic bradycardia, recurrent syncope POSTOPERATIVE DIAGNOSES: Same. COMPLICATIONS: None ESTIMATED BLOOD LOSS: None BRIEF HISTORY: 83-year-old white female with a history of chronic fibrillation, is admitted to the hospital with complaints of recurrent episodes of syncope/near syncope. He had an event monitor which revealed a prolonged pauses of 8 to 12 seconds, at the time of syncope. For further management of the patient's condition, a permanent pacemaker implantation was recommended. A single-chamber permanent pacemaker implantation was recommended for further management because of chronic atrial fibrillation. The procedure was explained to the patient in detail with the risks and benefits. The risks of bleeding, hematoma, vascular injury, infection, pneumothorax, myocardial perforation and other concomitant complications were explained in detail, which the patient understood well and consented to proceed. PROCEDURE DESCRIPTION: The patient was brought to the Cardiac Catheterization Lab. The left and the right side of the neck and the subclavian area were cleaned and draped in a sterile fashion. 1% Xylocaine was used as the local anesthetic agent. A left subclavian venous access was obtained using a micropuncture needle system, under fluoroscopic guidance, after injecting 20 mL of Omnipaque in the left antecubital vein. A 2-inch long incision was made 2.0 centimeters below the midclavicular region. By sharp and blunt dissection, a pacemaker pocket was made. Over the guidewire, a 7-Portuguese venous sheath with dilator was advanced. The venous dilator and the guidewire were taken out. A screw-in ventricular lead was advanced through the venous sheath and was positioned towards the right ventricle. Under fluoroscopy guidance, the ventricular lead was positioned toward the right ventricular apex. Good pacing and sensing thresholds were obtained. The lead was secured to the endocardium by advancing the helix. The stability of the lead was tested by gentle twisting movements and also by asking the patient to take some deep breaths and cough The venous sheath was peeled off at this time. The lead was secured to the pectoralis fascia by suturing with 1-0 Surgilon. The pacemaker pocket was copiously irrigated with Vancomycin solution. Complete hemostasis was achieved. Sponge counts were confirmed. The leads was attached to a Codility generator. The lead was positioned behind the generator and the generator was attached to the pectoralis fascia by suturing with 0 Surgilon. The pocket was closed in layers. Skin was approximated using 4-0 Vicryl. IMPLANTED DEVICES: VENTRICULAR LEAD: Model number: 5076/[id number] Serial number: [id number] Brand: MR conditional Make: Medtronic GENERATOR Model number: W1 SR 01 Serial number: [id number] Brand: Magi XT MRI Surescan Make: Medtronic IMPLANTATION DATA: With the pacing system analyzer, the R-wave sensing was 7.7 millivolts with a lead impedance of 912 ohms and a pacing threshold of 0.5 volts at 0.4 milliseconds. Through the device, the R-wave sensing was 7.3 millivolts with a lead impedance of 950 and a pacing threshold of 0.5 volts at 0.4 milliseconds. The pacemaker was set for VVIR mode with upper rate of 130 and a lower rate of 60. A pressure dressing was applied over the pacemaker site. The patient was transferred to the Medical Floor in stable condition. A chest x-ray was ordered to confirm the lead position and also to rule out any pneumothorax.
[2023-05-03] MEDS: ceFAZolin 2,000 MG in sodium chloride 0.9% (plus) 50 ML 100 MG IV (19:40)
[2023-05-04] VITALS (14 sets, daily range): BP systolic 103–157; BP diastolic 63–101; PULSE 85–126; TEMP 36.7–37.1; O2SAT 88–93; BMI 35.4
[2023-05-04] MEDS: nitroglycerin 1 gm/inch oint Pkt 1 INCH TOPICAL ×2 (00:13→05:00)
[2023-05-04] MEDS: ondansetron 2 mg/ML SDV 2 mL 4 MG IVP (00:23)
[2023-05-04] MEDS: methocarbamol 500 mg Tablet PO (00:58)
--- NOTE | 2023-05-04 01:00 | PC.NURSE ---
Methocarbamol Patient complaining of neck pain and requesting her home dose of methocarbamol. Dr. Sellers contacted; order received to restart home dose PRN methocarbamol.
[2023-05-04] MEDS: sodium chloride 0.9% 1,000 ML 75 ML IV (02:08)
[2023-05-04 04:09] LABS: Basophils % 0.2 %; Eosinophils # 0.1 10^3/uL (0.0-0.8); Eosinophils % 0.7 %; Hematocrit 33.4 % (37.0-47.0); Hemoglobin 10.8 g/dL (11.5-15.3); Lymphocytes # 2.4 10^3/uL (0.8-4.8); Lymphocytes % 26.1 %; Mean Corpuscular HGB Conc 32.3 g/dL (30.0-36.0); Mean Corpuscular Hemoglobin 29.1 pg (28.0-34.0); Mean Platelet Volume 11.1 fL (7.4-10.4); Monocytes % 11.1 %; Neutrophils # 5.57 10^3/uL (1.8-7.7); Neutrophils % 61.6 %; Nucleated Red Blood Cells % 0 %; Platelet Count 173 10^3/cmm (130-400); Red Blood Count 3.71 10^6/uL (4.1-5.3); Red Cell Distribution Width 14.6 % (12.1-15.1)
[2023-05-04 04:34] LABS: Alanine Aminotransferase 10 U/L (0-33); Albumin Level 3.5 g/dL (3.5-5.2); Alkaline Phosphatase 80 U/L (35-105); Anion Gap 14.3 (5-19); Aspartate Amino Transferase 14 U/L (0-32); Blood Urea Nitrogen 8 mg/dL (8-23); Calcium 7.8 mg/dL (8.5-10.5); Carbon Dioxide 22 mmol/L (22-29); Chloride 106 mmol/L (98-107); Globulin 1.9 g/dL (1.3-4.6); Glucose 101 mg/dL (65-115); Osmolality Calculated 284 mOsm/kg (285-295); Potassium 4.3 mmol/L (3.5-5.1); Sodium 138 mmol/L (136-145); Total Bilirubin 0.6 mg/dL (0.15-1.2); Total Protein 5.4 g/dL (6.6-8.7)
[2023-05-04] MEDS: ceFAZolin 2,000 MG in sodium chloride 0.9% (plus) 50 ML 100 MG IV ×2 (04:55→11:24)
--- NOTE | 2023-05-04 06:00 | XRR_ITS ---
PROCEDURE INFORMATION: Exam: XR Chest Exam date and time: 05/04/2023 5:56 AM Age: 83 years old Clinical indication: Device placement; Cardiac pacemaker placement or adjustment; Prior surgery; Surgery date: Post-operative (0-2 days); Surgery type: Pacer; Additional info: Post permanent pacemaker placement; Visualize lead tip TECHNIQUE: Imaging protocol: Radiologic exam of the chest. Views: 1 view. COMPARISON: CR XR chest 1V portable [id number] 05/03/2023 9:51 AM FINDINGS: Tubes, catheters and devices: A cardiac pacing device is again seen projecting over the left chest. Lungs: Low lung volumes. There is increased interstitial markings and haziness of the lungs, which in the setting of cardiomegaly is suggestive of pulmonary edema. Pneumonia should be excluded clinically. Pleural spaces: Unremarkable. No pleural effusion. No pneumothorax. Heart/Mediastinum: Stable cardiomediastinal silhouette. Bones/joints: Degenerative changes of the spine seen. XR/XR chest 1V [id number] IMPRESSION: Imaging findings suggestive of pulmonary edema. Pneumonia should be excluded clinically.
[2023-05-04] MEDS: amlodipine 5 mg Tablet 2.5 MG PO (08:07)
--- NOTE | 2023-05-04 09:02 | PC.SOCIAL ---
IMM Update Pg. 2 of IMM updated and reviewed with patient. Copy provided to patient; copy placed in chart.
--- NOTE | 2023-05-04 10:13 | PM.DCS ---
Discharge Providers Date of Admission: 05/01/23 01:50 Date of Discharge: May 04, 2023 Attending Provider at Admission: Aashish Daugherty MD Attending Provider at Discharge: Brigida Gilbert MD Primary Care Provider: Estee Novak MD Diagnoses at Discharge Discharge Diagnosis (1) Arrhythmia: Status: Acute (2) A-fib: Status: Acute Qualifiers: Atrial fibrillation type: persistent (not longstanding) Qualified Code(s): I48.19 - Other persistent atrial fibrillation Reason for Visit Reason for Visit: syncope /afib Hospital Course Hospital Course 83 year old female with a history of chronic atrial fibrillation, is admitted to the hospital with recurrent episodes of syncope/near syncope.? She had a total of 4 episodes of syncope since April 12 of this month.? She has an event monitor which revealed prolonged pauses of up to 12 seconds at 9:30 PM on 04/30/2023.? She is admitted to hospital for further evaluation management. Patient has been taking metoprolol 50 mg p.o. twice daily for a long time.? She had these episodes of syncopal episodes preceded by some dizziness.? She denies seizure activities.? No bowel or bladder incontinence.? Episodes last for few seconds. In view of the patient's symptomatic bradycardia tachyarrhythmia/prolonged pauses, for further management of her condition, a permanent pacemaker was deemed appropriate. She underwent pacemaker placement with Dr. posey on 05/03/23. She tolerated the procedure well without any adverse events. She is being discharged today in stable condition. Metorpolol and eliquis have been resumed at discharge. Follow up in one week with cardiology as outpatient. Physical Exam Narrative: General: No acute distress, AO x3 HEENT: PERRLA, pupils bilaterally equal and reactive, pallors not present Chest: Normal vesicular breath sounds, no added sounds, equal good air entry bilaterally CVS: S1-S2 regular, no murmurs, no tachycardia, no gallops, no rubs Abdomen: Soft, nontender, no organomegaly, bowel sounds present Neuro: No focal deficits, no facial deformity, AO x3, power 5/5 in all limbs Discharge Data Studies Completed and Pending Completed Studies During Hospitalization Category Date Time Status MUSIC ORCHESTRATOR request for service Routine Exams 05/03/23 12:00 Completed CXRP [XR chest 1V portable [id number]] NOW Exams 05/03/23 08:52 Completed XR chest 1V [id number] Routine Exams 05/04/23 06:00 Completed CV. echo complete* [id number] Routine Ultrasound 05/01/23 02:46 Completed CV. echo lmt w/w contras [id number] Routine Ultrasound 05/02/23 08:37 Completed Radiology Impressions Chest X-Ray 05/04/23 06:00 IMPRESSION: Imaging findings suggestive of pulmonary edema. Pneumonia should be excluded clinically. Laboratory Results WBC 9.0 10^3/uL (4.0-10.0) 05/04/23 02:59 RBC 3.71 10^6/uL (4.1-5.3) L 05/04/23 02:59 Hgb 10.8 g/dL (11.5-15.3) L 05/04/23 02:59 Hct 33.4 % (37.0-47.0) L 05/04/23 02:59 MCV 90.0 fl (81-99) 05/04/23 02:59 MCH 29.1 pg (28.0-34.0) 05/04/23 02:59 MCHC 32.3 g/dL (30.0-36.0) 05/04/23 02:59 RDW 14.6 % (12.1-15.1) 05/04/23 02:59 Plt Count 173 10^3/cmm (130-400) 05/04/23 02:59 MPV 11.1 fL (7.4-10.4) H 05/04/23 02:59 Neut % (Auto) 61.6 % 05/04/23 02:59 Lymph % (Auto) 26.1 % 05/04/23 02:59 Henderson % (Auto) 11.1 % 05/04/23 02:59 Eos % (Auto) 0.7 % 05/04/23 02:59 Baso % (Auto) 0.2 % 05/04/23 02:59 Neut # (Auto) 5.57 10^3/uL (1.8-7.7) 05/04/23 02:59 Lymph # (Auto) 2.4 10^3/uL (0.8-4.8) 05/04/23 02:59 Henderson # (Auto) 1.0 10^3/uL (0.2-0.9) H 05/04/23 02:59 Eos # (Auto) 0.1 10^3/uL (0.0-0.8) 05/04/23 02:59 Baso # (Auto) 0.0 10^3/uL (0.0-0.1) 05/04/23 02:59 Nucleated RBC % (auto) 0 % 05/04/23 02:59 Nucleated RBCs # 0.0 /100WBC 05/04/23 02:59 PT 13.20 SECONDS (12.1-14.9) 05/03/23 08:05 INR 0.97 (0.8-1.2) 05/03/23 08:05 Sodium 138 mmol/L (136-145) 05/04/23 02:59 Potassium 4.3 mmol/L (3.5-5.1) 05/04/23 02:59 Chloride 106 mmol/L (98-107) 05/04/23 02:59 Carbon Dioxide 22 mmol/L (22-29) 05/04/23 02:59 Anion Gap 14.3 (5-19) 05/04/23 02:59 BUN 8 mg/dL (8-23) 05/04/23 02:59 Creatinine 0.6 mg/dL (0.5-0.9) 05/04/23 02:59 GFR Calculation Not Reportable 05/04/23 02:59 Glucose 101 mg/dL (65-115) 05/04/23 02:59 Calculated Osmolality 284 mOsm/kg (285-295) L 05/04/23 02:59 Calcium 7.8 mg/dL (8.5-10.5) L 05/04/23 02:59 Magnesium 1.9 mg/dL (1.7-2.3) 05/03/23 03:40 Total Bilirubin 0.6 mg/dL (0.15-1.2) 05/04/23 02:59 AST 14 U/L (0-32) 05/04/23 02:59 ALT 10 U/L (0-33) 05/04/23 02:59 Alkaline Phosphatase 80 U/L (35-105) 05/04/23 02:59 Troponin T Baseline 14 ng/L (0-10) H 05/02/23 02:35 Troponin T 120 Minute 15.22 ng/L (0-10) H 05/02/23 04:25 Delta Troponin T 1.22 ABS# (0-10) 05/02/23 04:25 Troponin T Hi Sens 6Hr 18.15 ng/L (0-10) H 05/02/23 09:00 Troponin T Hi Sens 6Hr Delta 4.15 ng/L (0-12) 05/02/23 09:00 Total Protein 5.4 g/dL (6.6-8.7) L 05/04/23 02:59 Albumin 3.5 g/dL (3.5-5.2) 05/04/23 02:59 Globulin 1.9 g/dL (1.3-4.6) 05/04/23 02:59 TSH 2.55 uIU/mL (0.27-4.20) 05/01/23 02:42 Vitals Last Vital Signs Temp 98.1 F 05/04/23 04:00 Pulse 112 H 05/04/23 08:00 Resp 17 05/03/23 15:00 BP 157/101 05/04/23 08:00 Pulse Ox 92 05/04/23 06:00 O2 Del Method Room Air 05/04/23 06:00 O2 Flow Rate 2 05/02/23 12:00 Discharge Plan Discharge Patient Disposition: Home Condition: Stable Prescriptions: New cephalexin 500 mg capsule 500 mg PO Q6H 7 Days Qty: 28 0RF Continued fluticasone propionate [Flonase Allergy Relief] 50 mcg/actuation spray,suspension 1 spray INTRANASAL DAILY PRN (Reason: Nasal Congestion) methocarbamol 500 mg tablet 500 mg PO TID PRN (Reason: Muscle Spasm) acetaminophen [Arthritis Pain Relief (acetam)] 650 mg tablet extended release 650 mg PO Q12H PRN (Reason: Pain) fexofenadine [Ladonna Allergy] 180 mg tablet 180 mg PO DAILY Eliquis 5 mg tablet 5 mg PO BID Qty: 180 3RF atorvastatin 80 mg tablet 80 mg PO DAILY Qty: 90 3RF Lasix 40 mg tablet 40 mg PO DAILY Qty: 90 3RF metoprolol tartrate 50 mg tablet 50 mg PO BID@0900,2100 Qty: 180 3RF potassium chloride 20 mEq tablet extended release 20 meq PO DAILY Qty: 90 3RF nitroglycerin 0.4 mg tablet, sublingual 0.4 mg SUBLINGUAL Q5M PRN (Reason: chest pain) Qty: 30 3RF Rx Instructions: do not exceed 3 doses per episode Vitamin D3 25 mcg (1,000 unit) capsule 25 mcg PO BID Discharge Orders: Discharge Order (Routine); Ordered 05/04/23 Ordered By: Brigida Gilbert Referrals: [facility] ([facility]) [Outside] Estee Novak MD [Primary Care Provider] - 05/06/23 4:10 pm (will follow up with [facility]) Belen Forde FNP [Nurse Practitioner] - 05/09/23 1:15 pm (WILL NEED TO FOLLOW UP WITH [facility] FOR PACEMAKER /WOUND CHECK AND FOR FOLLOW UP ) Discharge Diet: Cardiac Discharge Activity: Resume usual activity Patient Instructions: Pacemaker (DC), Fall Prevention for Older Adults (DC), Fall Prevention (DC), Chest Pain Stoplight, Opioid Safety, Post Pacemaker - Mikey Discharge Attestations Time Spent in Discharge Care*: greater than 30 min Status at Discharge: Cognitive status at discharge: cognitively intact, Behavioral status at discharge: cooperative, Quality Metrics Clinical Quality Measures [ No reported AMI, CVA or VTE this stay] Coding Level of Care Code Acute Code for g Fwd Diagnoses Arrhythmia I49.9 A-fib I48.19 Atrial fibrillation type: persistent (not longstanding)
--- NOTE | 2023-05-04 10:50 | PM.PN ---
Subjective Subjective: The patient is feeling okay. No hematoma bleeding at the pacemaker insertion site. Chest x-ray shows appropriate lead positioning with no evidence of pneumothorax. Pacemaker interrogation was done this morning. Good pacing and sensing function Medications: Medication Review Details: Current Medications Alprazolam (Alprazolam 0.5 Mg Tablet) 0.25 mg PO BID PRN PRN Reason: ANXIETY Last Admin: 05/02/23 17:48 Dose: 0.25 mg Amlodipine Besylate (Amlodipine 5 Mg Tablet) 2.5 mg PO DAILY [facility] Last Admin: 05/04/23 08:07 Dose: 2.5 mg Atorvastatin Calcium (Atorvastatin 40 Mg Tablet) 40 mg PO QPM [facility] Last Admin: 05/03/23 18:35 Dose: 40 mg Sodium Chloride (Sodium Chloride 0.9%) 1,000 mls @ 50 mls/hr IV .Q20H EVELYNE Last Admin: 05/03/23 14:20 Dose: Not Given Sodium Chloride (Sodium Chloride 0.9%) 1,000 mls @ 75 mls/hr IV .[id number] [facility] Last Infusion: 05/04/23 02:09 Dose: Infused Sodium Chloride (Sodium Chloride 0.9%) 1,000 mls @ 75 mls/hr IV .[id number] [facility] Last Admin: 05/04/23 02:08 Dose: 75 mls/hr Cefazolin Sodium 2,000 mg/ (Sodium Chloride) 50 mls @ 100 mls/hr IV Q8H [facility]; Protocol Stop: 05/04/23 12:29 Last Admin: 05/04/23 04:55 Dose: 100 mls/hr Methocarbamol (Methocarbamol 500 Mg Tablet) 500 mg PO TID PRN PRN Reason: MUSCLE SPASMS Last Admin: 05/04/23 00:58 Dose: 500 mg Metoprolol Tartrate (Metoprolol Tartrate 50 Mg Tablet) 50 mg PO BID@0900,2100 EVELYNE Nitroglycerin (Nitroglycerin 1 Gm/Inch Oint Pkt) 1 inch TOPICAL Q6H [facility] Last Admin: 05/04/23 05:00 Dose: 1 inch Ondansetron HCl (Ondansetron 2 Mg/Ml Sdv 2 Ml) 4 mg IVP Q6H PRN PRN Reason: NAUSEA AND VOMITING Last Admin: 05/04/23 00:23 Dose: 4 mg Vitals/I&O/Wt Last Vital Signs Temp 98.1 F 05/04/23 04:00 Pulse 112 H 05/04/23 08:00 Resp 17 05/03/23 15:00 BP 130/64 05/04/23 10:01 Pulse Ox 92 05/04/23 06:00 O2 Del Method Room Air 05/04/23 06:00 O2 Flow Rate 2 05/02/23 12:00 05/03/23 05/04/23 05/04/23 22:59 06:59 14:59 Intake Total 480 / 1480 1250 / 2730 120 / 120 Output Total 275 / 575 Balance 480 / 1180 975 / 2155 120 / 120 Weight last 48 hrs Weight 194 lb Weight 195 lb Physical Exam Narrative: GENERAL: The patient is alert and oriented times three. Not in any acute distress. HEENT: No significant pallor, icterus or lymphadenopathy.Oral cavity: There are no mucous membrane lesions. NECK: Trachea appears to be central. No masses noted. No JVD or thyromegaly appreciated. RESPIRATORY: Chest is symmetrical. No intercostals muscle retraction or any accessory muscle activation. There is no chest wall tenderness. Breath sounds are heard bilaterally. No rales or rhonchi heard. No evidence of any consolidation. No hematoma or bleeding at the pacemaker site BREASTS: Deferred. HEART: The heart sounds are normal. No S3 or S4. No significant murmurs. No pericardial rub ABDOMEN: No vessel pulsations or distention. No tenderness. No organomegaly appreciated. Bowel sounds are normally heard. : Deferred. RECTAL: Deferred. LYMPHATIC: No lymphadenopathy noted in the neck. EXTREMITIES: No edema or cyanosis. No clubbing. MUSCULOSKELETAL: No acute joint deformities or swelling SKIN: There are no significant rashes or ecchymosis NEUROPSYCHIATRIC: The patient is alert and oriented x3. Appears to be in a good mood. No tremors or rigidity noted. Data 05/04/23 02:59 05/04/23 02:59 A&P Assessment and plan (1) Presence of permanent cardiac pacemaker: Patient is status post permanent pacer implantation. Currently seems to be doing okay. Pacemaker sensing and pacing function seem to be appropriate. (2) Essential hypertension: Currently is normotensive. Patient may be started back on the metoprolol 50 mg p.o. twice daily (3) Hyperlipidemia: Qualifiers: Hyperlipidemia type: other hyperlipidemia Qualified Code(s): E78.49 - Other hyperlipidemia (4) Diastolic heart failure: Currently seems to be compensated. (5) Chronic atrial fibrillation: Patient may be restarted on the Eliquis tomorrow Plan The patient continues to remain stable, may be discharged home today. Please make an appointment to be seen in the [facility] in a week by the nurse practitioner for a wound check and pacemaker check Patient may go home with Keflex 500 mg p.o. every 6 hours for 5 days Multivitamin daily for 2 weeks Attestations Medical Necessity Statement*: Possible discharge home today Coding Level of Care Code 18025 Diagnoses Presence of permanent cardiac pacemaker Z95.0 Essential hypertension I10 Hyperlipidemia E78.49 Hyperlipidemia type: other hyperlipidemia Diastolic heart failure I50.30 Chronic atrial fibrillation I48.20
[2023-05-04] MEDS: metoprolol tartrate 50 mg Tablet PO (11:23)
== END 2023-05-04 15:00 | disposition home health service (06) | DRG 243 ==
LOC: ER 01:50 → ICU 01:52
PROVIDERS: Hospitalist; Internal Medicine; Internal Medicine Cardiovascular Disease; Admitting Provider Internal Medicine; Emergency Provider Family Medicine; PCP Pediatrics; Visit Provider Student in an Organized Health Care Education/Training Program
PROC: 0JH604Z Insertion of Pacemaker, Single Chamber into Chest Subcutaneous Tissue and Fascia, Open Approach (ICD-10-PCS; principal; 2023-05-03 12:00)
DX: I49.5 Sick sinus syndrome (principal); I48.19 Other persistent atrial fibrillation; I50.32 Chronic diastolic (congestive) heart failure; R55 Syncope and collapse; F41.9 Anxiety disorder, unspecified; I35.0 Nonrheumatic aortic (valve) stenosis; I11.0 Hypertensive heart disease with heart failure; E78.49 Other hyperlipidemia; E66.9 Obesity, unspecified; Z68.35 Body mass index [BMI] 35.0-35.9, adult; M85.80 Other specified disorders of bone density and structure, unspecified site; Z79.01 Long term (current) use of anticoagulants
CPT/HCPCS: 33207; 36415; 71045; 80053; 83735; 84443; 84484; 85025; 85610; 93005; 93306; 93308; 96367; 96376; 97165; 99152; 99153; A4216; C1769; C1779; C1786; C1894; C8924; J0690; J2250; J2405; J3010; J3370; J7030; J7050; Q9967

== ENCOUNTER → 2023-05-09 12:48 | Outpatient (BNVA) | payer MEDICARE, OTHER, SELFPAY | PROVIDERS: PCP Pediatrics; Visit Provider Nurse Practitioner Family | DX: Z95.0 Presence of cardiac pacemaker (principal) | CPT/HCPCS: 93288; 99214 ==

== ENCOUNTER → 2023-06-10 10:54 | Outpatient (BNVA) | payer MEDICARE, OTHER, SELFPAY | PROVIDERS: PCP Pediatrics; Visit Provider Nurse Practitioner Family | DX: Z95.0 Presence of cardiac pacemaker (principal) | CPT/HCPCS: 99213 ==

== ENCOUNTER → 2023-08-04 14:17 | Outpatient (BNVA) | payer MEDICARE, OTHER, SELFPAY | PROVIDERS: PCP Pediatrics; Visit Provider Internal Medicine Cardiovascular Disease | DX: I48.19 Other persistent atrial fibrillation (principal); Z79.01 Long term (current) use of anticoagulants; I11.0 Hypertensive heart disease with heart failure; I50.30 Unspecified diastolic (congestive) heart failure; I35.0 Nonrheumatic aortic (valve) stenosis; E66.9 Obesity, unspecified; Z68.36 Body mass index [BMI] 36.0-36.9, adult | CPT/HCPCS: 99214 ==

== ENCOUNTER → 2023-09-05 09:03 | Outpatient (BNVA) | payer MEDICARE, OTHER, SELFPAY | PROVIDERS: PCP Pediatrics; Visit Provider Nurse Practitioner Family | DX: I48.20 Chronic atrial fibrillation, unspecified (principal); Z95.0 Presence of cardiac pacemaker; I11.0 Hypertensive heart disease with heart failure; I50.30 Unspecified diastolic (congestive) heart failure; Z79.01 Long term (current) use of anticoagulants | CPT/HCPCS: 99214 ==

== ENCOUNTER 2023-09-14 10:26 | Outpatient (CLI) | payer MEDICARE, OTHER, SELFPAY ==
--- NOTE | 2023-09-14 11:15 | USCV_ITS ---
Radha Samuel Age: 83 Gender: F : 1940 Exam Date: 09/14/2023 11:24 Ordering Phys: Belen Forde Technologist: CT Exam Location: [facility] [place]_ Indication: ao stenosis BP: 115 / 80 HR: Rhythm: Atrial fibrillation Technical Quality: Suboptimal MEASUREMENTS (Male / Female) Normal Values 2D ECHO LVOT Diameter 2.0 cm LV Ejection Fraction MOD 2C 44.4 % LV Ejection Fraction 2C AL 44.7 % LA Diameter 4.0 cm Aorta at Sinotubular Diameter 2.6 cm IVC Diameter 2.0 cm M-MODE Aortic Annulus Diameter 4.1 cm LA Ao Ratio MM 1.0 MV E Point Septal Separation 1.6 cm DOPPLER AV Peak Velocity 291.0 cm/s LVOT Peak Velocity 103.0 cm/s AV Area Cont Eq vti 1.1 cm squared AV Area Cont Eq pk 1.1 cm squared MV E' Velocity 9.0 cm/s TR Peak Velocity 224.3 cm/s TR Peak Gradient 20.1 mmHg TV Peak E Velocity 77.0 cm/s Right Atrial Pressure 3.0 mmHg Pulmonary Artery Systolic Pressu 23.1 mmHg FINDINGS Left Ventricle Suboptimal study secondary to poor imaging and atrial fibrillation. The ventricle is probably normal in size and function. Wall motion disturbances difficult to assess ascertain. Ejection fraction is probably 55%.rhythm precludes evaluation of diastolic function. Right Ventricle Normal right ventricular size and systolic function. Normal right ventricular systolic pressure. Right Atrium Moderately increased right atrial size. Left Atrium Moderately increased left atrial size. Mitral Valve Structurally normal mitral valve. Mild-moderate mitral valve regurgitation. Aortic Valve Structurally normal trileaflet aortic valve. Moderate aortic valve calcification. Moderate aortic valve stenosis, mean gradient 21.4 mmHg, RORO 1.1 cm squared. Tricuspid Valve Structurally normal tricuspid valve. Moderate tricuspid valve regurgitation. Pulmonic Valve Pulmonic valve not well visualized. Pericardium Normal pericardium without effusion. Aorta Normal ascending aorta dimension. IVC Inferior vena cava not visualized. CONCLUSIONS Suboptimal study secondary to poor imaging and atrial fibrillation. The ventricle is probably normal in size and function. Wall motion disturbances difficult to assess ascertain. Ejection fraction is probably 55%.rhythm precludes evaluation of diastolic function. Moderately increased right atrial size. Moderately increased left atrial size. Structurally normal mitral valve. Mild-moderate mitral valve regurgitation. Structurally normal trileaflet aortic valve. Moderate aortic valve calcification. Moderate aortic valve stenosis, mean gradient 21.4 mmHg, RORO 1.1 cm squared. Previous study was done 5 months ago. There has been essentially no change. Dr. Jarred Garzon MD (Electronically Signed) Final Date: 14 September 2023 15:42 S
== END 2023-09-14 10:27 | disposition home or self-care (01) ==
LOC: RAD 10:27
PROVIDERS: PCP Pediatrics; Visit Provider Nurse Practitioner Family
DX: I35.0 Nonrheumatic aortic (valve) stenosis (principal); I34.0 Nonrheumatic mitral (valve) insufficiency
CPT/HCPCS: 93306

== ENCOUNTER → 2023-10-25 08:58 | Outpatient (BNVA) | payer MEDICARE, OTHER, SELFPAY | PROVIDERS: PCP Pediatrics; Visit Provider Dermatology | DX: D48.5 Neoplasm of uncertain behavior of skin (principal); S00.30XA Unspecified superficial injury of nose, initial encounter; X58.XXXA Exposure to other specified factors, initial encounter; L57.0 Actinic keratosis; L82.1 Other seborrheic keratosis | CPT/HCPCS: 11102; 17000; 99203 ==

== ENCOUNTER → 2023-11-29 09:42 | Outpatient (BNVA) | payer MEDICARE, OTHER, SELFPAY | PROVIDERS: PCP Pediatrics; Visit Provider Nurse Practitioner Family | DX: I11.0 Hypertensive heart disease with heart failure (principal); I50.30 Unspecified diastolic (congestive) heart failure; I35.0 Nonrheumatic aortic (valve) stenosis; Z95.0 Presence of cardiac pacemaker; I48.20 Chronic atrial fibrillation, unspecified; Z79.01 Long term (current) use of anticoagulants | CPT/HCPCS: 99214 ==

== ENCOUNTER → 2023-12-14 13:58 | Outpatient (BNVA) | payer MEDICARE, OTHER, SELFPAY | PROVIDERS: PCP Pediatrics; Visit Provider Internal Medicine | DX: Z45.010 Encounter for checking and testing of cardiac pacemaker pulse generator [battery] (principal) | CPT/HCPCS: 93296 ==

== ENCOUNTER → 2024-01-25 12:57 | Outpatient (BNVA) | payer MEDICARE, OTHER, SELFPAY | PROVIDERS: PCP Pediatrics; Visit Provider Dermatology | DX: L82.1 Other seborrheic keratosis (principal); L72.0 Epidermal cyst; L57.0 Actinic keratosis; L81.4 Other melanin hyperpigmentation; L84 Corns and callosities; Z86.007 Personal history of in-situ neoplasm of skin | CPT/HCPCS: 17000; 99213 ==

== ENCOUNTER → 2024-03-21 12:41 | Outpatient (BNVA) | payer MEDICARE, OTHER, SELFPAY | PROVIDERS: PCP Pediatrics; Visit Provider Internal Medicine | DX: Z45.010 Encounter for checking and testing of cardiac pacemaker pulse generator [battery] (principal) | CPT/HCPCS: 93296 ==

== ENCOUNTER → 2024-04-03 09:38 | Outpatient (BNVA) | payer MEDICARE, OTHER, SELFPAY | PROVIDERS: PCP Pediatrics; Visit Provider Nurse Practitioner Family | DX: I11.0 Hypertensive heart disease with heart failure (principal); I50.33 Acute on chronic diastolic (congestive) heart failure; I35.0 Nonrheumatic aortic (valve) stenosis; Z95.0 Presence of cardiac pacemaker; I48.20 Chronic atrial fibrillation, unspecified | CPT/HCPCS: 99214 ==

== ENCOUNTER 2024-04-20 12:30 | Outpatient (CLI) | payer MEDICARE, OTHER, SELFPAY ==
--- NOTE | 2024-04-20 12:30 | USCV_ITS ---
Radha Samuel Age: 84 Gender: F : 1940 Exam Date: 04/20/2024 12:39 Ordering Phys: Belen Forde Technologist: JULIANNE Exam Location: [facility] [place] Indication: AVS BP: 135 / 74 HR: 84 Rhythm: Atrial fibrillation Technical Quality: Adequate MEASUREMENTS (Male / Female) Normal Values 2D ECHO LV Diastolic Diameter PLAX 4.5 cm 4.2 - 5.9 / 3.9 - 5.3 cm IVS Diastolic Thickness 1.3 cm 0.6 - 1.0 / 0.6 - 0.9 cm IVS Systolic Thickness 1.4 cm LVPW Diastolic Thickness 1.6 cm 0.6 - 1.0 / 0.6 - 0.9 cm LVPW Systolic Thickness 2.3 cm LVOT Diameter 2.1 cm LV Ejection Fraction 2D Teich 69.8 % LV Ejection Fraction MOD 4C 51.2 % LV Ejection Fraction MOD 2C 58.8 % LV Ejection Fraction 2C AL 60.7 % RA Systolic Volume 4C AL 64.2 ml RA Systolic Volume 4C MOD 62.0 ml Aorta at Sinotubular Diameter 2.4 cm IVC Diameter 1.7 cm M-MODE LA Ao Ratio MM 1.6 AV Cusp Separation MM 0.6 cm DOPPLER AV Peak Velocity 276.0 cm/s LVOT Peak Velocity 100.0 cm/s AV Area Cont Eq vti 1.3 cm squared AV Area Cont Eq pk 1.3 cm squared MV Peak Velocity 145.0 cm/s MV Area PHT 3.7 cm squared Mitral E to A Ratio 0.0 TR Peak Velocity 253.0 cm/s TR Peak Gradient 25.6 mmHg TR Mean Velocity 199.0 cm/s TR Mean Gradient 17.3 mmHg TR Velocity Time Integral 83.1 cm TV Peak E Velocity 50.0 cm/s Right Atrial Pressure 3.0 mmHg Pulmonary Artery Systolic Pressu 28.6 mmHg RV Ejection Time 0.3 s FINDINGS Left Ventricle Mild left ventricular hypertrophy. Normal left ventricular cavity size. Normal left ventricular size and systolic function, EF 58% . Right Ventricle Normal right ventricular size and systolic function. Right Atrium Normal right atrial size. Left Atrium Normal left atrial size. Mitral Valve Mildly thickened mitral valve. Mitral annular calcification. No mitral valve regurgitation. Aortic Valve Thickened aortic valve. Mild aortic valve stenosis. Mean gradient 17 mmHg. No aortic valve regurgitation. Tricuspid Valve Structurally normal tricuspid valve. Pulmonic Valve Structurally normal pulmonic valve. Pericardium No pericardial effusion. Aorta Normal size aortic root and proximal ascending aorta. IVC Normal inferior vena cava. CONCLUSIONS Mild concentric LVH. Normal LV systolic function. Estimated LVEF normal 58%. Thickened aortic valve with mild aortic stenosis No other significant valvular abnormality noted. Normal right heart and pulmonary pressures. Medardo Teresa MD (Electronically Signed) Final Date: 21 April 2024 14:00 S
== END 2024-04-20 12:31 | disposition home or self-care (01) ==
PROVIDERS: PCP Pediatrics; Visit Provider Nurse Practitioner Family
DX: I35.0 Nonrheumatic aortic (valve) stenosis (principal); I51.7 Cardiomegaly; I34.89 Other nonrheumatic mitral valve disorders; I35.8 Other nonrheumatic aortic valve disorders
CPT/HCPCS: 93306

== ENCOUNTER 2024-04-22 10:06 | Emergency (ER) | payer MEDICARE, OTHER, SELFPAY ==
[2024-04-22 10:16] VITALS: BP 110/62; PULSE 73; TEMP 36.8; O2SAT 93
--- NOTE | 2024-04-22 10:23 | ED_ITS ---
HPI - Chest Pain 2 General: Chief Complaint: Chest Pain Stated Complaint: Cp Time Seen by Provider: 04/22/24 10:08 Source: patient Mode of arrival: ambulatory Limitations: no limitations History of Present Illness: This patient transported by private vehicle to the emergency department today because of chest pressure symptoms that began yesterday that were intermittent throughout the day and then have returned today and has been present most of the morning. She has a history of congestive heart failure and is had similar symptoms years ago when she had increased fluid. She denies cough or fever. She denies any shortness of breath. She has a history of chronic atrial fibrillation and has a pacemaker. She takes a apixaban. She denies any history of thromboembolic events etc. She states she has been faithful to all her medications. MD complaint: chest heaviness and chest discomfort Associated symptoms: Deny abdominal pain, dyspnea, fever(s), nausea, syncope or vomiting Review of Systems 2 Const: Denies: fever(s) or chills Eyes: Denies: change in vision ENMT: Denies: throat pain, odynophagia, nasal discharge or nasal congestion Card: Reports: irregular heart rhythm; Denies: syncope or pre-syncope Resp: Denies: dyspnea, productive cough or non-productive cough GI: Denies: abdominal pain, nausea, vomiting or diarrhea : Denies: flank pain, difficulty voiding, dysuria or urinary frequency Musc: Denies: neck pain, back pain, extremity pain or extremity swelling Skin/Breast: Denies: rash Psych: Denies: anxiety or depression Deniz/Lymph: Reports: easy bruising PFSH ED 2 PFSH: Medical History Diastolic heart failure Hypertension Aortic stenosis Osteopenia Essential hypertension Obesity Anxiety Chest pressure Hyperlipidemia Abnormal stress test Surgical History S/P hysterectomy H/O right wrist surgery Family History Mother Cancer Father Cancer Brother Cancer Social History Smoking and tobacco/nicotine status: never used tobacco/nicotine Alcohol intake: current Alcohol intake frequency: holidays/special occasions only Household members: spouse Marital status: service: No Current occupational status: retired Physical Exam 2 Narrative: EXAM NARRATIVE: She appears to be comfortable she is alert and cooperative. Const: COMMON NORMALS: no acute distress, patient oriented x3, no limitations and healthy appearing NUTRITIONAL APPEARANCE: overweight HENMT: COMMON NORMALS: normocephalic, Normal nasal mucous membranes and turbinates present and moist oral mucous membranes HEAD & SCALP: n ormocephalic NOSE: Normal nasal mucous membranes and turbinates present Eye: COMMON NORMALS: Equal, round and reactive pupils present, EOMs intact bilaterally and conjunctivae normal CONJUNCTIVA: Yes conjunctivae normal P UPIL: Yes Equal, round and reactive pupils present Neck/C-Spine: COMMON NORMALS: full ROM, no lymphadenopathy and supple Chest: COMMONS NORMALS: normal inspection of the chest and normal palpation of entire chest wall OTHER: She has a palpable implantable medical billing manager in her left anterior chest Resp: COMMON NORMALS: normal respiratory effort, No use of accessory muscles and clear to auscultation bilaterally AUSCULTATION: clear to auscultation bilaterally Cardio: COMMON NORMALS: No murmurs present (Cardio) and Peripheral pulses 2+ throughout RHYTHM: abnormal rhythm irregularly irregular PERIPHERAL PULSES: Peripheral pulses 2+ throughout GI: COMMON NORMALS: Normal to inspection, nondistended, normoactive bowel sounds present, Soft to palpation and non-tender INSPECTION: Yes central obesity PALPATION: Yes Soft to palpation : COMMON NORMALS: Yes no CVA tenderness BLADDER/KIDNEY EXAM: Yes no CVA tenderness Back/Pelvis: COMMON NORMALS: no CVA tenderness, thoracic and lumbar spine normal to inspection, no thoracic nor lumbar tenderness and thoraco-lumbar ROM normal Extremity: COMMON NORMALS: normal to inspection, full ROM, capillary refill normal, no calf tenderness and no pedal edema Neuro: COMMON NORMALS: patient oriented x3, moves all extremities, no focal motor deficits and no sensory deficits noted Psych: COMMON NORMALS: mental status grossly normal Skin: COMMON NORMALS: no rashes or lesions noted, no wounds and turgor normal GENERAL SKIN EXAM: no rashes or lesions noted and turgor normal Course 2 Reevaluation(s): Reevaluation #1: Patient's had good diuresis from her Lasix. She subjectively feels at her baseline without any chest pain sensation of palpitations or other symptoms. We discussed current findings their implications and recommendations to increase Lasix for the next 5 days and then resume back to her regular dosing. There is no her diagnosis has been listed as diastolic heart failure she apparently has had some elevation of BNP with some fluid retention which is likely precipitated her symptoms. No evidence to suggest ACS at this time. She is comfortable with the plan of care and suitable for discharge without any evidence that additional observation or admission is necessary at this time. Time: 14:06 Vital Signs: Vital signs: Vital Signs Temperature 98.2 F 04/22/24 10:16 Pulse Rate 66 04/22/24 13:00 Blood Pressure 129/63 04/22/24 13:00 Pulse Oximetry 93 04/22/24 13:00 Oxygen Delivery Me thod Room Air 04/22/24 13:00 MDM - Chest Pain Medical Decision Making This patient presented as per the history of present illness. She has a known history of heart failure with preserved LV function as well as history of chronic atrial fibrillation with permanent pacemaker installed. Differential diagnosis based upon HPI included such things as decompensated heart failure, ACS, pneumonia etc. She is currently on the long-term anticoagulation making thromboembolic disease less likely. Evaluation revealed an elevated BNP significantly higher than that which she has recorded in the past. She had had a initial slightly elevated troponin but subsequent troponins did not show a significant positive delta in fact were falling making ACS less likely. Chest x-ray showed cardiomegaly consistent with her diagnosis without any other evidence of pathology. She responded well to diuresis and remained stable without tachycardia hypoxia etc. We plan on increasing her Lasix dosing to twice daily for the next 5 days and then back to the regular dosing with close outpatient follow-up as well as return precautions. She voiced understanding and was stable for discharge. Medical Records I reviewed the patient's medical records. Prior history of heart failure with preserved left ventricular function Lab Data I reviewed the patient's lab results. 04/22/24 10:25 04/22/24 10:25 Radiology Impressions Chest X-Ray 04/22/24 10:43 IMPRESSION: Cardiomegaly otherwise negative chest. Laboratory Results WBC 6.86 10^3/uL (3.29-11.43) 04/22/24 10:25 RBC 4.31 10^6/uL (3.85-5.65) 04/22/24 10:25 Hgb 12.80 g/dL (11.27-16.99) 04/22/24 10:25 Hct 39.3 % (36-47) 04/22/24 10:25 MCV 91.2 fl (85-98) 04/22/24 10:25 MCH 29.7 pg (27-33) 04/22/24 10:25 MCHC 32.6 g/dL (30-55) 04/22/24 10:25 RDW 14.6 % (12.1-15.1) 04/22/24 10:25 Plt Count 180 10^3/cmm (157-399) 04/22/24 10:25 MPV 10.7 fL (7.4-10.4) H 04/22/24 10:25 Neut % (Auto) 70.8 % 04/22/24 10:25 Lymph % (Auto) 16.3 % 04/22/24 10:25 Baker % (Auto) 11.1 % 04/22/24 10:25 Eos % (Auto) 0.6 % 04/22/24 10:25 Baso % (Auto) 0.6 % 04/22/24 10:25 Neut # (Auto) 4.86 10^3/uL (1.8-7.7) 04/22/24 10:25 Lymph # (Auto) 1.1 10^3/uL (0.8-4.8) 04/22/24 10:25 Baker # (Auto) 0.8 10^3/uL (0.2-0.9) 04/22/24 10:25 Eos # (Auto) 0.0 10^3/uL (0.0-0.8) 04/22/24 10:25 Baso # (Auto) 0.0 10^3/uL (0.0-0.1) 04/22/24 10:25 Nucleated RBC % (auto) 0 % 04/22/24 10:25 Nucleated RBCs # 0.0 /100WBC 04/22/24 10:25 Sodium 138 mmol/L (136-145) 04/22/24 10:25 Potassium 4.5 mmol/L (3.5-5.1) 04/22/24 10:25 Chloride 101 mmol/L (98-107) 04/22/24 10:25 Carbon Dioxide 25 mmol/L (22-29) 04/22/24 10:25 Anion Gap 16.5 (5-19) 04/22/24 10:25 BUN 14 mg/dL (8-23) 04/22/24 10:25 Creatinine 1.0 mg/dL (0.5-0.9) H 04/22/24 10:25 GFR Calculation Not Reportable 04/22/24 10:25 Glucose 116 mg/dL (65-115) H 04/22/24 10:25 Calculated Osmolality 287 mOsm/kg (285-295) 04/22/24 10:25 Calcium 8.8 mg/dL (8.5-10.5) 04/22/24 10:25 Total Bilirubin 0.7 mg/dL (0.15-1.2) 04/22/24 10:25 AST 18 U/L (0-32) 04/22/24 10:25 ALT 16 U/L (0-33) 04/22/24 10:25 Alkaline Phosphatase 99 U/L (35-105) 04/22/24 10:25 Troponin T Baseline 20 ng/L (0-10) H 04/22/24 10:25 Troponin T 120 Minute 18.14 ng/L (0-10) H 04/22/24 12:21 Delta Troponin T -1.86 ABS# (0-10) L 04/22/24 12:21 NT-Pro-B Natriuret Pep 3913 pg/mL (0-450) H 04/22/24 10:25 Total Protein 7.2 g/dL (6.6-8.7) 04/22/24 10:25 Albumin 4.2 g/dL (3.5-5.2) 04/22/24 10:25 Globulin 3.0 g/dL (1.3-4.6) 04/22/24 10:25 All radiology interpretation(s) finalized by discharge EKG Data EKG 1: I personally reviewed and interpreted this EKG as follows: Interpretation: Ventricular rate is noted to be 74 bpm. She has paced rhythm with anterior space with ventricular beats. QRS duration is normal corrected QT intervals normal. She has an extreme rightward axis. No acute ST-T wave changes or discordant or concordant changes noted. Discharge Plan Discharge Patient Disposition: Home Clinical Impression: Atrial fibrillation, chronic Diastolic heart failure Qualifiers: Heart failure chronicity: chronic Qualified Code(s): I50.32 - Chronic diastolic (congestive) heart failure Condition: Stable Prescriptions: No Action fluticasone propionate [Flonase Allergy Relief] 50 mcg/actuation spray,suspension 1 spray INTRANASAL DAILY PRN (Reason: Nasal Congestion) methocarbamol 500 mg tablet 500 mg PO TID PRN (Reason: Muscle Spasm) Eliquis 5 mg tablet 5 mg PO BID Qty: 180 3RF metoprolol tartrate 100 mg tablet 100 mg PO BID Qty: 180 3RF acetaminophen [Arthritis Pain Relief (acetam)] 650 mg tablet extended release 650 mg PO Q12H PRN (Reason: Pain) fexofenadine [Ladonna Allergy] 180 mg tablet 180 mg PO DAILY PRN atorvastatin 80 mg tablet 80 mg PO DAILY Qty: 90 3RF Lasix 40 mg tablet 40 mg PO DAILY Qty: 90 3RF nitroglycerin 0.4 mg tablet, sublingual 0.4 mg SUBLINGUAL Q5M PRN (Reason: chest pain) Qty: 30 3RF Rx Instructions: do not exceed 3 doses per episode potassium chloride 20 mEq tablet extended release 20 meq PO DAILY Qty: 90 3RF Vitamin D3 25 mcg (1,000 unit) capsule 25 mcg PO BID Discharge Orders: Discharge ED (Routine); Ordered 04/22/24 Ordered By: Romain Sampson Referrals: Estee Novak MD [Primary Care Provider] - 3 weeks Discharge Diet: Usual diet and Low Salt Discharge Activity: Increase activity as tolerated Patient Instructions: Opioid Safety, Pain Management Activity Restrictions/Additional Instructions: As we discussed you have evidence that you have fluid retention. No evidence of heart attack or other serious condition at this time. We request that you take an additional Lasix pill mid afternoon perhaps around 2-3 o'clock for the next 5 days and then resume back to your once daily dosing. Continue with a low-sodium diet. If you do not continue to feel better or worsening symptoms at any time or other concerns you are welcome to return to the emergency department for reevaluation otherwise follow-up with your regular doctor in the next 2 to 3 weeks as needed. Coding Level of Care Code ED Marking Stitcher for Luisa Medley
--- NOTE | 2024-04-22 10:43 | XRR_ITS ---
PROCEDURE INFORMATION: Exam: XR Chest Exam date and time: 04/22/2024 10:53 AM Age: 84 years old Clinical indication: Pain; Chest pressure; Prior surgery; Surgery date: 6+ months; Surgery type: Pacemaker gb; Additional info: Cp TECHNIQUE: Imaging protocol: Radiologic exam of the chest. Views: 1 view. COMPARISON: CR (CHEST, ) 05/04/2023 5:56 AM FINDINGS: Lungs: Unremarkable. No consolidation. Pleural spaces: Unremarkable. No pleural effusion. No pneumothorax. Heart/Mediastinum: Heart is enlarged. There is a single electrode pacemaker terminating within right paratracheal. Bones/joints: Unremarkable for age. XR/XR chest 1V portable [id number] IMPRESSION: Cardiomegaly otherwise negative chest.
--- NOTE | 2024-04-22 10:43 | ECG_ITS ---
[facility] Test Date: 2024-04-22 Pat Name: Radha Samuel Department: Room: Gender: Female Supervisor Record Press: : 1940 Requested By: Romain Sampson Order Number: [id number] Vidya MD: Medardo Teresa M.D. Measurements Intervals [place] Rate: 74 P: 0 [place]: 0 QRS: 268 QRSD: 136 T: -3 QT: 445 QTc: 495 Interpretive Statements ELECTRONIC VENTRICULAR PACEMAKER Underlying rhythm is A fib RIGHT AXIS DEVIATION [QRS AXIS > 100] INTRAVENTRICULAR CONDUCTION DELAY [130+ ms QRS DURATION] Electronically Signed On 04-22-2024 13:21:14 CDT by Medardo Teresa M.D. [email or web address]
[2024-04-22 10:51] LABS: Basophils % 0.6 %; Eosinophils % 0.6 %; Hematocrit 39.3 % (36-47); Lymphocytes # 1.1 10^3/uL (0.8-4.8); Lymphocytes % 16.3 %; Mean Corpuscular HGB Conc 32.6 g/dL (30-55); Mean Corpuscular Hemoglobin 29.7 pg (27-33); Mean Corpuscular Volume 91.2 fl (85-98); Mean Platelet Volume 10.7 fL (7.4-10.4); Monocytes # 0.8 10^3/uL (0.2-0.9); Monocytes % 11.1 %; Neutrophils # 4.86 10^3/uL (1.8-7.7); Neutrophils % 70.8 %; Nucleated Red Blood Cells % 0 %; Platelet Count 180 10^3/cmm (157-399); Red Blood Count 4.31 10^6/uL (3.85-5.65); Red Cell Distribution Width 14.6 % (12.1-15.1); White Blood Count 6.86 10^3/uL (3.29-11.43)
[2024-04-22 11:05] LABS: Troponin(5th) Baseline 20 ng/L (0-10)
[2024-04-22 11:15] LABS: Alanine Aminotransferase 16 U/L (0-33); Albumin Level 4.2 g/dL (3.5-5.2); Alkaline Phosphatase 99 U/L (35-105); Anion Gap 16.5 (5-19); Aspartate Amino Transferase 18 U/L (0-32); Blood Urea Nitrogen 14 mg/dL (8-23); Calcium 8.8 mg/dL (8.5-10.5); Carbon Dioxide 25 mmol/L (22-29); Chloride 101 mmol/L (98-107); Glucose 116 mg/dL (65-115); NT Pro B Type Natriuretic Pept 3913 pg/mL (0-450); Osmolality Calculated 287 mOsm/kg (285-295); Potassium 4.5 mmol/L (3.5-5.1); Sodium 138 mmol/L (136-145); Total Bilirubin 0.7 mg/dL (0.15-1.2); Total Protein 7.2 g/dL (6.6-8.7)
[2024-04-22 12:00] VITALS: BP 112/77; PULSE 68; O2SAT 95
[2024-04-22 12:30] VITALS: BP 129/60; PULSE 66; O2SAT 97
--- NOTE | 2024-04-22 12:34 | ECG_ITS ---
[facility] Test Date: 2024-04-22 Pat Name: Radha Samuel Department: Room: Gender: Female Watch Inspector: : 1940 Requested By: Romain Sampson Order Number: [id number] Dasilva MD: Medardo Teresa M.D. Measurements Intervals [place] Rate: 63 P: 0 [place]: 0 QRS: -86 QRSD: 169 T: 75 QT: 512 QTc: 525 Interpretive Statements ELECTRONIC VENTRICULAR PACEMAKER ABNORMAL RHYTHM ECG Compared to ECG 04/22/2024 10:11:07 No significant change Electronically Signed On 04-22-2024 16:05:54 CDT by Medardo Teresa M.D. [email or web address]
[2024-04-22 13:00] VITALS: BP 129/63; PULSE 66; O2SAT 93
[2024-04-22 13:00] LABS: Troponin 5 2HR 18.14 ng/L (0-10)
[2024-04-22 13:16] LABS: Troponin 5 2HR Delta -1.86 ABS# (0-10)
[2024-04-22] MEDS: FUROsemide 10 mg/mL SDV 4mL 40 MG IVP (13:17)
== END 2024-04-22 14:21 | disposition home or self-care (01) ==
PROVIDERS: Emergency Provider Emergency Medicine; PCP Pediatrics
DX: I50.32 Chronic diastolic (congestive) heart failure (principal); I11.0 Hypertensive heart disease with heart failure; I48.20 Chronic atrial fibrillation, unspecified; Z79.01 Long term (current) use of anticoagulants; E78.5 Hyperlipidemia, unspecified
CPT/HCPCS: 36415; 71045; 80053; 83880; 84484; 85025; 93005; 96374; 99285; J1940

== ENCOUNTER → 2024-07-26 13:48 | Outpatient (BNVA) | payer MEDICARE, OTHER, SELFPAY | PROVIDERS: PCP Pediatrics; Visit Provider Nurse Practitioner Family | DX: D48.5 Neoplasm of uncertain behavior of skin (principal); L82.1 Other seborrheic keratosis; Z86.007 Personal history of in-situ neoplasm of skin; L81.4 Other melanin hyperpigmentation; B02.29 Other postherpetic nervous system involvement; L57.0 Actinic keratosis | CPT/HCPCS: 11102; 17000; 99213 ==

== ENCOUNTER → 2024-10-02 11:03 | Outpatient (BNVA) | payer MEDICARE, OTHER, SELFPAY | PROVIDERS: PCP Pediatrics; Visit Provider Internal Medicine Cardiovascular Disease | DX: I48.20 Chronic atrial fibrillation, unspecified (principal); E78.49 Other hyperlipidemia; Z95.0 Presence of cardiac pacemaker; I11.0 Hypertensive heart disease with heart failure; I50.32 Chronic diastolic (congestive) heart failure; I35.0 Nonrheumatic aortic (valve) stenosis; Z79.01 Long term (current) use of anticoagulants | CPT/HCPCS: 99214 ==

== ENCOUNTER → 2024-12-04 08:23 | Outpatient (BNVA) | payer MEDICARE, OTHER, SELFPAY | PROVIDERS: PCP Pediatrics; Visit Provider Nurse Practitioner Family | DX: B02.29 Other postherpetic nervous system involvement (principal); L82.1 Other seborrheic keratosis; L81.4 Other melanin hyperpigmentation; Z08 Encounter for follow-up examination after completed treatment for malignant neoplasm; Z86.007 Personal history of in-situ neoplasm of skin; D48.5 Neoplasm of uncertain behavior of skin; L57.0 Actinic keratosis | CPT/HCPCS: 11102; 17000; 99213 ==

== ENCOUNTER → 2025-05-22 13:03 | Outpatient (BNVA) | payer MEDICARE, OTHER, SELFPAY | PROVIDERS: PCP Pediatrics; Visit Provider Nurse Practitioner Family | DX: L82.1 Other seborrheic keratosis (principal); L81.4 Other melanin hyperpigmentation; Z08 Encounter for follow-up examination after completed treatment for malignant neoplasm; Z85.828 Personal history of other malignant neoplasm of skin; L57.0 Actinic keratosis | CPT/HCPCS: 17000; 99213 ==

== ENCOUNTER → 2025-05-28 10:46 | Outpatient (BNVA) | payer MEDICARE, OTHER, SELFPAY | PROVIDERS: PCP Pediatrics; Visit Provider Internal Medicine Cardiovascular Disease | DX: I48.20 Chronic atrial fibrillation, unspecified (principal); Z79.01 Long term (current) use of anticoagulants; I10 Essential (primary) hypertension; E78.5 Hyperlipidemia, unspecified; I35.0 Nonrheumatic aortic (valve) stenosis; Z95.0 Presence of cardiac pacemaker; R01.1 Cardiac murmur, unspecified | CPT/HCPCS: 99214 ==

== ENCOUNTER → 2025-06-19 16:36 | Outpatient (BNVA) | payer MEDICARE, OTHER, SELFPAY | PROVIDERS: PCP Pediatrics; Visit Provider Internal Medicine | DX: Z45.018 Encounter for adjustment and management of other part of cardiac pacemaker (principal) | CPT/HCPCS: 93296 ==

== ENCOUNTER 2025-06-25 11:38 | Outpatient (CLI) | payer MEDICARE, OTHER, SELFPAY ==
--- NOTE | 2025-06-25 12:00 | USCV_ITS ---
Radha Samuel Age: 85 Gender: F : 1940 Exam Date: 06/25/2025 12:03 Ordering Phys: Charan Montalvo MD ([email or web address]) Technologist: Exam Location: [facility] [place] Indication: murmur cp BP: 120 / 70 HR: 59 Rhythm: Sinus Technical Quality: Adequate MEASUREMENTS (Male / Female) Normal Values 2D ECHO LV Diastolic Diameter PLAX 4.2 cm 4.2 - 5.9 / 3.9 - 5.3 cm IVS Diastolic Thickness 1.1 cm 0.6 - 1.0 / 0.6 - 0.9 cm IVS Systolic Thickness 1.5 cm LVPW Diastolic Thickness 1.3 cm 0.6 - 1.0 / 0.6 - 0.9 cm LVPW Systolic Thickness 2.0 cm LVOT Diameter 2.0 cm LV Ejection Fraction 2D Teich 56.2 % LV Ejection Fraction MOD 4C 51.5 % LV Ejection Fraction MOD 2C 59.2 % LV Ejection Fraction 2C AL 60.3 % LA Diameter 4.0 cm RA Systolic Volume 4C AL 138.4 ml RA Systolic Volume 4C MOD 134.5 ml Aorta at Sinotubular Diameter 3.1 cm IVC Diameter 2.1 cm M-MODE LA Ao Ratio MM 1.7 AV Cusp Separation MM 0.7 cm DOPPLER AV Peak Velocity 309.3 cm/s LVOT Peak Velocity 76.0 cm/s AV Area Cont Eq vti 0.8 cm squared AV Area Cont Eq pk 0.8 cm squared MV Peak Velocity 163.0 cm/s MV Area PHT 4.8 cm squared Mitral E to A Ratio 3.5 TV Peak Velocity 313.5 cm/s TR Peak Velocity 318.0 cm/s TR Peak Gradient 40.4 mmHg PV Peak Velocity 98.0 cm/s FINDINGS Left Ventricle Mildly increased left ventricular cavity size. Moderately decreased left ventricular systolic function. Left ventricular ejection fraction is estimated at 45 %. Global left ventricular hypokinesis. In the presence of atrial fibrillation diastolic function cannot be assesed accurately. Right Ventricle Catheter/pacemaker wire visualized in the right ventricle. Right Atrium Mildly increased right atrial size. Left Atrium Moderately increased left atrial size. Mitral Valve Severely thickened mitral valve. Moderate mitral annular calcification. No mitral valve stenosis. Moderatemitral valve regurgitation. Aortic Valve Moderate aortic valve calcification. Mild aortic valve stenosis, mean gradient 17.6 mmHg, RORO 1.7 cm squared by planimetry Trace aortic valve regurgitation. Tricuspid Valve Trace tricuspid valve regurgitation. Trace tricuspid valve regurgitation. Pulmonic Valve Structurally normal pulmonic valve without significant stenosis. There is no pulmonic regurgitation. Pericardium Normal pericardium without effusion. Aorta Normal ascending aorta dimension. IVC The inferior vena cava appears normal. CONCLUSIONS Mildly increased left ventricular cavity size. Moderately decreased left ventricular systolic function. Left ventricular ejection fraction is estimated at 45 %. Global left ventricular hypokinesis. In the presence of atrial fibrillation diastolic function cannot be assesed accurately. Moderate aortic valve calcification. Mild aortic valve stenosis, mean gradient 17.6 mmHg, RORO 1.7 cm squared by planimetry Trace aortic valve regurgitation. Severely thickened mitral valve. Moderate mitral annular calcification. No mitral valve stenosis. Moderatemitral valve regurgitation. Catheter/pacemaker wire visualized in the right ventricle. Moderately increased left atrial size There is no pericardial effusion. Right atrial pressure is around 5 mm of mercury. Charan Montalvo MD (Electronically Signed) Final Date: 04 July 2025 11:58 S
== END 2025-06-25 11:39 | disposition home or self-care (01) ==
LOC: RAD 11:39
PROVIDERS: PCP Pediatrics; Visit Provider Internal Medicine Cardiovascular Disease
DX: R01.1 Cardiac murmur, unspecified (principal); I34.0 Nonrheumatic mitral (valve) insufficiency; I51.89 Other ill-defined heart diseases; I70.0 Atherosclerosis of aorta; I35.0 Nonrheumatic aortic (valve) stenosis; Z95.0 Presence of cardiac pacemaker; I51.7 Cardiomegaly
CPT/HCPCS: 93306

== ENCOUNTER → 2025-09-18 12:59 | Outpatient (BNVA) | payer MEDICARE, OTHER, SELFPAY | PROVIDERS: PCP Pediatrics; Visit Provider Internal Medicine Cardiovascular Disease | DX: Z45.018 Encounter for adjustment and management of other part of cardiac pacemaker (principal) | CPT/HCPCS: 93296 ==